=== PATIENT | female | born 1940 | race Caucasian/White ===

== ENCOUNTER → 2016-05-03 | Outpatient (CLI) | payer MEDICARE ==
[~2016-05-03] MED LIST: ALDACTONE 25MG25 MG PO; ALPHA LIPOIC300 MG PO; APRESOLINE 10MG10 MG PO; ARTIFICIAL TEAR15 M6 OP; ARTIFICIAL1 DROP/0.0; ASPIRIN 81MG TA81 MG PO; AZOR 5 MG-20 MG1 TAB PO; BAYER ASPIRIN C81 MG PO; BENICAR HCT 251 TAB PO; BUDESONIDE3 MG PO; CALCIUM WITH D1 CTB PO; CARVEDILOL 25MG25 MG PO; CENTRUM SILVER1 TA2 PO; CHEWABLE ASPIRI81 MG PO; CLARITIN 10MG T10 MG PO; CLARITIN10 MG OR; CLINDAMYCIN300 MG PO; COLACE GENERIC100 MG OR; COREG 6.25MG6.25 MG PO; COUMADIN3 MG PO; COUMADIN6 MG PO; Docusate Sodiu100 MG PO; EDECRIN25 MG OR; EDECRIN25 MG PO; ENDOCORT PO; ENTOCORT EC3 M1 PO; FAMOTIDINE 20MG20 MG PO; FAMOTIDINE20 MG PO; FIBERCON625 MG PO; FOLIC ACID1 MG PO; GABAPENTIN100 M1 PO; HYDRALAZINE HCL25 M1 PO; K-DUR 20MEQ TA20 MEQ PO; KEFLEX 500MG.500 MG PO; LEVAQUIN500 MG PO; LEVOTHYROXIN0.088 MG PO; LEVOTHYROXINE0.1 MG PO; LEVOXYL0.088 MG PO; LISINOPRIL 10MG10 MG NG; LISINOPRIL 20MG20 MG PO; LOMOTIL 0.025 M1 TAB OR; LOPRESSOR 25MG.25 MG PO; LOSARTAN POTAS100 MG PO; MACROBID 100MG100 MG PO; MAG-OX 400MG T400 MG PO; MEDROL 4MG TABLE4 MG PO; METAMUCIL PO; METHYLPREDNISONE4 MG PO; METOLAZONE2.5 MG PO; METOPROLOL25 MG PO; METOPROLOL50 MG PO; NEURONTIN 100100 MG PO; PRAVACHOL20 MG PO; PROAIR HFA0.09 MG/AC IH; PROBIOTIC FORMU1 CA1 PO; SPIRONOLACTONE25 MG PO; SUPER B COMPL PO; TEKTURNA300 MG PO; THE MEDICINE S400 IU PO; TORSEMIDE10 MG PO; URSODIOL250 MG PO; VANCOMYCIN1.5 GM/251 IV; VICODIN 5/500 T1 TAB PO; VITAMIN B121000 MC2 PO; VITAMIN C500 M1 PO; VITAMIN D31000 IU PO; WARFARIN SOD5 MG OR; WARFARIN SOD5 MG PO; WARFARIN SODIU2.5 MG PO; WARFARIN SODIUM3 MG PO; WARFARIN SODIUM6 MG PO; WARFARIN4 MG PO; ZESTRIL40 M1 OR; ZOCOR20 MG PO
== END ==
LOC: ACC 09:30
DX: Z86.718 Personal history of other venous thrombosis and embolism (principal); Z79.01 Long term (current) use of anticoagulants; Z51.81 Encounter for therapeutic drug level monitoring
CPT/HCPCS: G0463

== ENCOUNTER → 2016-05-10 | Outpatient (CLI) | payer MEDICARE | LOC: ACC 10:00 | DX: Z86.718 Personal history of other venous thrombosis and embolism (principal); Z79.01 Long term (current) use of anticoagulants; Z51.81 Encounter for therapeutic drug level monitoring | CPT/HCPCS: G0463 ==

== ENCOUNTER → 2016-06-04 | Outpatient (CLI) | payer MEDICARE | LOC: ACC 09:30 | DX: Z86.718 Personal history of other venous thrombosis and embolism (principal); Z79.01 Long term (current) use of anticoagulants; Z51.81 Encounter for therapeutic drug level monitoring | CPT/HCPCS: G0463 ==

== ENCOUNTER → 2016-06-07 | Outpatient (CLI) | payer MEDICARE | LOC: LAB 11:53 | DX: L97.229 Non-pressure chronic ulcer of left calf with unspecified severity (principal) ==

== ENCOUNTER 2016-07-01 12:00 | Outpatient (CLI) | payer MEDICARE | END 2016-07-01 14:45 | LOC: ACC 12:00 | DX: Z86.718 Personal history of other venous thrombosis and embolism (principal); Z79.01 Long term (current) use of anticoagulants; Z51.81 Encounter for therapeutic drug level monitoring | CPT/HCPCS: G0463 ==

== ENCOUNTER → 2016-10-11 | Outpatient (CLI) | payer MEDICARE ==
[2016-10-11 14:07] LABS: BUN 27 mg/dL (7-18); GFR (ESTIMATED) 61 ML/MIN (59-)
[2016-10-12 07:41] LABS: Microalbumin, Urine 5.4 ug/mL (Not Estab.)
== END ==
LOC: LAB 10:03
PROVIDERS: Internal Medicine
DX: E11.42 Type 2 diabetes mellitus with diabetic polyneuropathy (principal); I87.2 Venous insufficiency (chronic) (peripheral); I10 Essential (primary) hypertension; E78.5 Hyperlipidemia, unspecified; K75.4 Autoimmune hepatitis; E03.9 Hypothyroidism, unspecified

== ENCOUNTER 2016-11-08 10:59 | Outpatient (CLI) | payer MEDICARE | END 2016-11-08 16:26 | LOC: ACC 10:59 | DX: Z86.718 Personal history of other venous thrombosis and embolism (principal); Z79.01 Long term (current) use of anticoagulants; Z51.81 Encounter for therapeutic drug level monitoring | CPT/HCPCS: G0463 ==

== ENCOUNTER → 2016-11-30 | Outpatient (CLI) | payer MEDICARE ==
[2016-11-30 12:28] LABS: BUN 47 mg/dL (7-18)
[2016-11-30 12:43] LABS: GFR (ESTIMATED) 40 ML/MIN (59-)
== END ==
LOC: LAB 11:35
PROVIDERS: Internal Medicine
DX: R07.9 Chest pain, unspecified (principal); M25.512 Pain in left shoulder

== ENCOUNTER 2016-12-06 10:06 | Outpatient (CLI) | payer MEDICARE | END 2016-12-06 14:21 | LOC: ACC 10:06 | DX: Z86.718 Personal history of other venous thrombosis and embolism (principal); Z79.01 Long term (current) use of anticoagulants | CPT/HCPCS: G0463 ==

== ENCOUNTER 2016-12-07 08:46 | Day surgery (SDC) | payer MEDICARE ==
[2016-12-10 15:48] VITALS: BP 117/72
== END 2016-12-07 11:57 | disposition home or self-care (01) ==
LOC: SDC 08:46
PROVIDERS: Ophthalmology
PROC: 085J3ZZ Destruction of Right Lens, Percutaneous Approach (ICD-10-PCS; 2016-12-07)
PROC: 085K3ZZ Destruction of Left Lens, Percutaneous Approach (ICD-10-PCS; principal; 2016-12-07 09:00)
DX: H26.493 Other secondary cataract, bilateral (principal)

== ENCOUNTER 2017-01-17 10:08 | Outpatient (CLI) | payer MEDICARE | END 2017-01-17 15:50 | LOC: ACC 10:08 | DX: I82.499 Acute embolism and thrombosis of other specified deep vein of unspecified lower extremity (principal); Z79.01 Long term (current) use of anticoagulants; Z51.81 Encounter for therapeutic drug level monitoring ==

== ENCOUNTER → 2017-01-18 | Outpatient (CLI) | payer MEDICARE ==
--- NOTE | 2017-01-20 12:33 | RADIOLOGY REPORT PS360 ---
DIG MAMM-SCREEN ALEKS W/CAD CAD Screening COMPARISON: Digital mammograms 11/01/2014 and 12/05/2015 INDICATION: There is no personal or family history of breast cancer. There has been previous biopsy left breast. TECHNIQUE: Standard CC and MLO images were obtained. R2 CAD reviewed. FINDINGS: The breasts are closed primarily of fat with residual fibroglandular elements in the central portions bilaterally. Multiple benign-appearing calcifications are seen in each breast. There is a biopsy clip central portion left breast. There is faint arterial calcification in each breast. There is no suspicious lesion and no suspicious microcalcifications. IMPRESSION: Fibrofatty parenchyma with no suspicious lesion seen recommend yearly follow-up BI-RADS CATEGORY: 2_Benign RECOMMENDED FOLLOWUP: 12M 12 MONTH FOLLOW-UP (A letter has been sent to the patient regarding results of the study.)
== END ==
LOC: RAD 08:56
DX: Z12.31 Encounter for screening mammogram for malignant neoplasm of breast (principal)
CPT/HCPCS: G0202

== ENCOUNTER → 2017-02-25 | Outpatient (CLI) | payer MEDICARE ==
[~2017-02-25] MED LIST changes: +ADVAIR 10028 PUFF/IN IN; +LASIX 20MG. TAB20 MG PO; +MINOCYCLINE 10100 MG PO; +RANITIDINE HCL150 MG PO
[2017-02-25 13:05] LABS: HEMOGLOBIN 11.1 g/dL (12.2-16.2); LYMPH # 0.9 K/mm3 (0.7-4.5); LYMPH % 7.4 % (10-50.0)
[2017-02-25 13:58] LABS: BUN 21 mg/dL (7-18)
[2017-02-25 14:04] LABS: GFR (ESTIMATED) 61 ML/MIN (59-)
[2017-02-25 14:42] LABS: NEUTROPHILS 85 % (42-76)
== END ==
LOC: LAB 11:57
PROVIDERS: Internal Medicine
DX: L03.116 Cellulitis of left lower limb (principal); I10 Essential (primary) hypertension; E11.42 Type 2 diabetes mellitus with diabetic polyneuropathy; I89.0 Lymphedema, not elsewhere classified; I87.2 Venous insufficiency (chronic) (peripheral)

== ENCOUNTER 2017-03-07 11:30 | Outpatient (CLI) | payer MEDICARE ==
[~2017-03-07 11:30] MED LIST changes: -ADVAIR 10028 PUFF/IN IN; -LASIX 20MG. TAB20 MG PO; -MINOCYCLINE 10100 MG PO; -RANITIDINE HCL150 MG PO
[2017-03-08] MEDS ORDERED: MINOCYCLINE 10100 MG PO (11:34)
[2017-03-08] MEDS ORDERED: LASIX 20MG. TAB20 MG PO (11:36)
[2017-03-08] MEDS ORDERED: ADVAIR 10028 PUFF/IN IN (11:36)
[2017-03-08] MEDS ORDERED: RANITIDINE HCL150 MG PO (11:37)
[2017-03-08] MEDS ORDERED: WARFARIN SODIU2.5 MG PO ×2 (14:18)
== END 2017-03-07 16:07 ==
LOC: ACC 11:30
DX: Z86.718 Personal history of other venous thrombosis and embolism (principal); Z79.01 Long term (current) use of anticoagulants; Z51.81 Encounter for therapeutic drug level monitoring
CPT/HCPCS: G0463

== ENCOUNTER 2017-03-08 10:43 | Inpatient (IN) | payer MEDICARE ==
[~2017-03-08] VITALS: Ht 152.4 cm; Wt 78.2 kg
[~2017-03-08 10:43] MED LIST changes: -ADVAIR 10028 PUFF/IN IN; -CEFEPIME1 GM/50 ML IV; -LASIX 20MG. TAB20 MG PO; -MINOCYCLINE 10100 MG PO; -RANITIDINE HCL150 MG PO; -VANCO 1.251.25 GM/15 IV
[2017-03-08 10:47] VITALS: BP 167/95
--- NOTE | 2017-03-08 11:04 | Emergency Room Report ---
History of Present Illness Time Seen by [id number] Presenting Problem in Triage Pt arrived: Presenting Problem: Onset of symptoms date/time:/ or onset unknown for: Treatment Prior to Arrival: [employer] Provided by: Sepsis Risk Assessment: Temp: B/P: MAP: Pulse: Resp: Recent fever? Clinical Suspician of Infection? Mental Status: Sepsis Risk: Have you (or family members/close friends) recently traveled outside the [place]? If Yes, where/when: Have you had exposure to infectious disease within the past month? TB? Other? Specify: Sent directly by PCP Dr. Lomeli with one week history of cellulitis, BLE, left greater than right; didn't improve on Keflex and cultures showed MRSA, so switched to minocycline and receiving outpatient wound care; has had n/v for the last day and a half, not keeping down minocycline, now has deep ulcerations with drainage LLE, wound cultures obtained at PCP office and transferred via wheelchair to ED for further evaluation. Presents HDS but with low grade fever, alert. ALLERGIES Coded Allergies: HMG-CoA Reductase Inhibitors (Intermediate, I-RASH 06/09/15) Sulfa (Sulfonamide Antibiotics) (Intermediate, I-HIVES 06/09/15) sumatriptan (Intermediate, I-RASH 06/09/15) morphine (Mild, HALLUCINATIONS 06/09/15) phenylephrine (06/09/15) pseudoephedrine (06/09/15) venom-honey bee (bee venom (honey bee)) (06/09/15) Penicillins (Intermediate, SWELLING/REDNESS @INJECTION SITE 06/09/15) amlodipine (Intermediate, SWELLING OF FEET/ANKLES 06/09/15) dipyridamole (From Aggrenox) (Mild, NA-NAUSEA/VOMITING; HEADACHE 03/18/15) promethazine (Mild, RESTLESSNESS 03/18/15) Home Medications Active Scripts Spironolactone (Aldactone) 50 MG PO BIDD #180 TAB Ref 1 Prov: 04/02/15 WARFARIN SOD (Warfarin 5MG) 5 MG PO DAILY #30 TAB Ref 5 Prov: 04/02/15 Reported Medications Minocycline Hcl (Minocycline 100MG. Capsule) 100 MG PO DAILY #20 Ascorbic Acid (Vitamin C) 500 MG PO DAILY Cyanocobalamin (Vitamin B12) 1,000 MCG PO DAILY Carvedilol (Carvedilol 25MG) 25 MG PO BID Polyvinyl Alcohol (Artificial Tears) 15 ML OP PRN Calcium Polycarbophil (Fibercon) 625 MG PO BID Losartan Potassium (Losartan 100MG) 100 MG PO DAILY Aspirin (Tanya Chewable Aspirin) 81 MG PO DAILY Levothyroxine Sodium (Levothyroxine 0.088MG) 0.088 MG PO DAILY Budesonide (Budesonide EC) 6 MG PO DAILY CHOLECALCIFEROL (VITAMIN D3) (Vitamin D) 2,000 IUNITS PO BID B.ANI/L.ACI/L.DAYTNO/L.PLAN/L.SYLVAIN (Probiotic Formula Capsule) 1 CAP PO DAILY Furosemide (Lasix 20MG) 20 MG PO BID SALMETEROL 50/FLUTICASONE 100 (Advair 100-50 Diskus) 1 PUFFS IN BID Ranitidine Hcl (Ranitidine 150MG) 150 MG PO BID History Medical History General CAD? No Angina: Yes ME: No Hypertension? Yes Hyperlipidemia? Yes CHF? No DVT? No PE? No COPD? No Asthma? Yes Anemia? No GERD? No Gastric ulcers? No GI Bleed? No Hernia? Yes Thyroid Problems? No Hypothyroidism? No CVA? Yes Seizures? No Diabetes? Yes Insulin Dependent: No Insulin Pump: No Home FSBS? Yes Renal Insuffiency? No End Stage Renal Disease? No UTI? Yes Stones? No BPH? No GB Disease: No Nephritic Syndrome? No Asplenia? No Hepatitis? Yes Sickle Cell Disease? No Arthritis? No Migraines? No Cataracts? Yes Glaucoma? No MRSA? No HIV? No TB? No Anxiety? No Depression? No Cancer? 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 PROCED. 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 MARYAM FILTER PLACED COLOSTOMY R/T RUPTURE COLOSTOMY REVERSAL HERNIA REPAIR [place] teeth extraction Family History Family Hx Diabetes No CAD Yes Hypertension Yes Hyperlipidemia Yes Cancer No TB No Social History Alcohol Alcohol: No Review of Systems All Other Systems Reviewed and Negative Constitutional see HPI Gastrointestinal see HPI, denies abdominal pain, denies constipation, denies diarrhea, nausea, vomiting Musculoskeletal see HPI Skin see HPI Physical Exam Vital Signs Vital Signs Date Time Temp Pulse Resp B/P Pulse O2 O2 Flow FiO2 Ox Delivery Rate 03/08 1256 76 18 156/92 95 03/08 1047 99.4 78 18 167/95 94 General Appearance normal appearance (99.4; 167/95), WD/WN, no apparent distress Eye Exam - bilateral eye normal exam, bilateral eye PERRL, bilateral eye EOMI Neck normal inspection, non-tender, supple, full range of motion Respiratory Status Yes: trachea midline, chest symmetrical, non tender chest. No: respiratory distress, tender on palpation, use of accessory muscles, pain on inspiration, pain on expiration, productive cough, non productive cough. Lung Sounds bilateral: normal breath sounds, lungs clear. Cardiovascular normal exam, regular rate/rhythm, no gallop, no JVD, no murmur, no rub, normal peripheral pulses Gastrointestinal normal bowel sounds, normal exam, non tender, soft, no organomegaly, no pulsatile mass, no guarding, no rebound Extremities bandages removed; deep one cm in diameter ulceration, LLE, bandage from PCP office just now is dripping with serosanguinous fluid; also has cellulitis BLE. Neg Casimiro's, diffuse, nonpitting edema BLE. Feet are spared and are warm to touch, n/v intact, well perfused. Strength 4 Upper Ext (L), 4 Upper Ext (R), 4 Lower Ext (L), 4 Lower Ext (R) Neurologic alert, normal exam, no motor/sensory deficits, oriented x 3 ( diffusely weak, nonfocal exam) Glascow Coma Scale Glascow Coma Scale Response Value EYE response: 4 Spontaneously 4 MOTOR response: 6 OBEYS 6 VERBAL response: 5 Oriented & Converses 5 Total 15 Skin see above: cellulitis plus ulcerations Medical Decision Making LABS/Meds/Orders Pt receiving controlled substance in ED? No Results/Orders Laboratory Tests 03/08/17 1317: Urine Color YELLOW, Urine Appearance CLEAR, Urine pH 7.0, Ur Specific Gibson 1.010, Urine Protein TRACE H, Urine Ketones NEGATIVE, Urine Blood NEGATIVE, Urine Nitrate NEGATIVE, Urine Bilirubin NEGATIVE, Urine Urobilinogen 0.2, Ur Leukocyte Esterase NEGATIVE, Urine RBC NONE, Urine WBC OCC, Ur Squamous Epith Cells 20-50, Urine Bacteria 2+, Urine Glucose NEGATIVE 03/08/17 1117: Lactic Acid 2.6 H 03/08/17 1117: Sodium 144, Potassium 3.6, Chloride 105, Carbon Dioxide 29, BUN 28 H, Creatinine 1.0, Estimated Creat Clear 60, Estimated GFR (MDRD) 54 L, Glucose 178 H, Calcium 9.3, Total Bilirubin 0.7, AST 25, ALT 35, Alkaline Phosphatase 114, Total Protein 6.5, Albumin 3.0 L, Globulin 3.5 H, Albumin/Globulin Ratio 0.9 L, PT 19.7 H, INR 1.81 H, APTT 28.1, WBC 9.6, RBC 3.78 L, Hgb 12.2, Hct 36.9 L, MCV 97.6, RDW 14.3, Plt Count 228, MPV 7.5, Gran % 89.8 H, Gran # 8.6 H, Total Counted 100, Lymphocytes % 4.7 L, Monocytes % 3.5, Eosinophils % 1.5, Basophils % 0.4, Neutrophils 91 H, Lymphocytes (Manual) 3 L, Lymphocytes # 0.5 L, Monocytes (Manual) 5, Monocytes # 0.3, Eosinophils # 0.2, Eosinophils # ( Manual) 1, Basophils # 0.0, RBC/WBC/PLT Morphology NORMAL, Platelet Estimate NORMAL, PUBS MCHC 33.2, ESR 59 H, MCH 32.4 H Current Medication Orders Sig/Mary Start time Last Medication Dose Route Stop Time Status Admin Vancomycin HCl 1,250 MG Q24H 03/09 1300 AC Sodium Chloride 250 ML IV Vancomycin HCl 1,250 MG Q24H 03/08 1300 CAN Sodium Chloride 250 ML IV Vancomycin HCl 1,500 MG ONCE ONE 03/08 1300 AC 03/08 Sodium Chloride 250 ML IV 03/08 1459 1315 Miscellaneous 1 EACH CONSULT PHARMACY 03/08 1230 DC Information * 03/09 0022 Sodium Chloride 10 ML PRN PRN 03/08 1115 AC IV 03/09 1105 Orders Procedure Date/time Status URINALYSIS/COMPLETE 03/08 1246 Complete LACTIC ACID FOLLOW UP 03/08 1153 Active DIFFERENTIAL-WBC 03/08 1117 Complete PARTIAL THROMBOPLASTIN TIME 03/08 1112 Complete PROTHROMBIN TIME 03/08 1112 Complete IV SALINE LOCK 03/08 1106 Active CULTURE, BLOOD 03/08 1106 Active LACTIC ACID 03/08 1106 Complete SED RATE 03/08 1106 Complete C-REACTIVE PROTEIN 03/08 1106 Complete CBC WITH AUTO DIFF 03/08 1106 Complete CHEM 12 PROFILE 03/08 1106 Complete XRAY/CT/US XRAY/CT/US XRAY leg XR interpretation by reviewed by me (report reviewed) Xray Results ulceration L leg per report; no gas noted on either leg xray. Consult MD Physician Consult 1 Time Called 1058 Reason Admission Physician Consult 2 Time Called 1249 Physician Consult 3 Time Called [address] Hodgson, who admits for Dr. Lomeli: go ahead and admit on Vancomycin. Departure Departure Time of Disposition 1321 Disposition Still a Patient Clinical Impression Primary Impression: Cellulitis of leg without foot, left Secondary Impressions: Cellulitis of leg without foot, right Elevated lactic acid level Nausea & vomiting Ulcer of left lower leg Qualifiers: Non-pressure ulcer stage: unspecified non-pressure ulcer stage Qualified Code: L97.929 - Non-pressure chronic ulcer of unspecified part of left lower leg with unspecified severity Condition STABLE Referrals [facility],Ernesto August (Family) ED Critical Care Critical Care No at 1406
--- OUTSIDE RECORDS SUMMARY | 2017-03-08 11:11 | External Medical Summary Rpt | CCD ---
Author Author , MARYAN STEINBERG Address Unknown Phone Care Team Providers Care Program Administrator Name Role Phone Ernesto Lomeli MD, Unavailable Unavailable Ernesto Mancini MD, Unavailable Unavailable Karo Mancini MD Purpose Continuity of Care Document - 07-05-2012 through 2016 Problems Code Diagnosis DOS Provider Status 244.0 244.0 04-09-2013 [place] POSTSURGICA [facility] HYPOTHYROID 244.9 244.9 04-09-2013 [place] HYPOTHYROID [facility] IS NOS Hospital 272.4 272.4 04-09-2013 [place] HYPERLIPIDE [facility] NEC/NOS Hospital 401.9 401.9 04-09-2013 [place] HYPERTENSIO [facility] N [facility] Hospital 424.0 424.0 04-09-2013 [place] 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 493.90 493.90 04-09-2013 [place] ASTHMA, [facility] UNSPECIFIED Hospital 564.1 564.1 04-09-2013 [place] IRRITABLE [facility]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 715.90 715.90 04-09-2013 [place] OSTEOARTHRO [facility] S [facility] NOS-UNSPEC 784.7 784.7 04-09-2013 [place] EPISTAXIS [facility] V12.51 V12.51 04-09-2013 [place] HX-VENOUS [facility] THROMBOSIS& Hospital EMBOLISM V58.61 V58.61 04-09-2013 [place] ANTICOAGULA [facility] NTS,LT,[facility] ENT USE V58.69 V58.69 OTH 04-09-2013 [place] MED,LT,[facility] ENT USE Hospital 356.9 356.9 IDIO 07-07-2012 [place] PERIPH [facility] NEURPTHY [facility] NOS 435.9 435.9 TRANS 07-07-2012 [place] CEREB [facility] ISCHEMIA Hospital NOS 496 496 [facility] 07-07-2012 [place] AIRWAY [facility] OBSTRUCT [facility] NEC 573.3 573.3 07-07-2012 [place] HEPATITIS [facility] NOS Hospital 625.6 625.6 FEM 07-07-2012 [place] STRESS [facility] INCONTINENC [facility] E 729.81 729.81 07-07-2012 [place] SWELLING OF [facility] 599.0 599.71 786.05 V58.81 Allergies, Adverse Reactions, Alerts Type Allergy to substance Drug Allergy Adverse Reaction to Substance Substance Reaction Severity STATINS I-RASH Unknown Penicillin Unknown Unknown SULFA (sulfonamide) I-HIVES Intermediate Morphine NA-HALLUCINATIONS Intermediate Pseudoephedrine Unknown Mild Promethazine Unknown Intermediate Penicillin G Unknown Unknown Phenylephrine Unknown Unknown Dipyridamole Unknown Mild Amlodipine Unknown Mild Clarithromycin Unknown Unknown Sumatriptan I-RASH Intermediate Bee Venom Unknown Unknown Clinical Alert Notifications Alert Asthma: no influenza vaccine in the last 365 days Medications Na ND Rx Da Fi Fi Am Da Di Ph RX Ph St me C No te ll ll ou ys ag ar # ys at rm s nt no ma ic us Or Da si cy ia de te s n re d AV 00 12 0 No AP 08 -2 RO 72 3- Lo 77 20 ng 30 33 13 er 0 1 MG Ac ti TA ve BL ET HY [address] 07 -2 AL 90 3- Lo AZ 07 20 ng IN 52 13 er E 0 25 Ac ti MG ve TA BL ET Po 00 12 0 No ta 24 -2 ss 50 3- Lo iu 05 20 ng m 80 13 er Ch 1 lo Ac ri ti de ve 20 ME Q Ta bl e Po 00 12 0 No ta 24 -2 ss 50 3- Lo iu 05 20 ng m 80 13 er Ch 1 lo Ac ri ti de ve 20 ME Q Ta bl e SP 51 12 0 No IR 07 -2 ON 90 3- Lo OL 10 20 ng AC 32 13 er TO 0 NE Ac ti 25 ve MG TA BL ET SP 51 12 1 No IR 07 -2 ON 90 2- Lo OL 10 20 ng AC 32 13 er TO 0 NE Ac ti 25 ve MG TA BL ET Po 00 12 1 No ta 24 -2 ss 50 2- Lo iu 05 20 ng m 80 13 er Ch 1 lo Ac ri ti de ve 20 ME Q Ta bl e 00 12 0 No TA 40 -2 CA 99 2- Lo N 15 20 ng K- 80 13 er 1 1 10 Ac ti MG ve /M L AM PU L Po 00 12 1 No ta 24 -2 ss 50 2- Lo iu 05 20 ng m 80 13 er Ch 1 lo Ac ri ti de ve 20 ME Q Ta bl e ME 59 12 1 No TH 74 -2 YL 60 2- Lo HI 00 20 ng ED 10 13 er NI 6 SO Ac LO ti NE ve 4 MG TA BL ET HY [address] 07 -2 AL 90 2- Lo AZ 07 20 ng IN 52 13 er E 0 25 Ac ti MG ve TA BL ET CE 00 12 2 No FT 40 -2 RI 97 1- Lo AX 33 20 ng ON 30 13 er E 4 1 Ac GM ti ve AL SO 00 12 2 No DI 40 -2 UM 97 1- Lo 10 20 ng CH 16 13 er LO 6 RI Ac DE ti ve 0. 9% SO LN AV 00 12 1 No AP 08 -2 RO 72 1- Lo 77 20 ng 15 23 13 er 0 1 MG Ac ti TA ve BL ET SY 00 12 2 No NT 07 -2 HR 46 1- Lo OI 59 20 ng D 49 13 er 88 0 Ac MC ti G ve TA BL ET LO 51 12 2 No RA 07 -2 TA 90 1- Lo DI 24 20 ng NE 62 13 er 0 10 Ac ti MG ve TA BL ET FA 51 12 2 No MO 07 -2 TI 90 1- Lo DI 96 20 ng NE 62 13 er 0 20 Ac ti MG ve TA BL ET BA 45 12 2 No CI 80 -2 TR 20 1- Lo AC 06 20 ng IN 07 13 er 0 50 Ac 0 ti UN ve IT /G M OI NT MN T PA 12 2 No TI -2 EN 1- Lo T' 20 ng S 13 er OW N Ac HO ti ME ve ME DS ME 59 12 1 No TH 74 -2 YL 60 1- Lo HI 00 20 ng ED 10 13 er NI 6 SO Ac LO ti NE ve 4 MG TA BL ET HY [address] 07 -2 AL 90 1- Lo AZ 07 20 ng IN 52 13 er E 0 25 Ac ti MG ve TA BL ET SO 00 12 3 No DI 40 -2 UM 97 0- Lo 98 20 ng CH 30 13 er LO 9 RI Ac DE ti ve 0. 9% SO ROSS TI ON CO 00 12 0 No CA 52 -2 IN 71 0- Lo E 72 20 ng 4% 87 13 er 4 SO Ac ROSS ti TI ve ON NA 00 12 0 No SA 90 -2 L 45 0- Lo DE 71 20 ng CO 13 13 er NG 5 ES Ac TA ti NT ve 0. 05 % SP RA Y CL 00 12 0 No ON 90 -2 ID 45 0- Lo IN 65 20 ng E 66 13 er HC 1 L Ac 0. ti 1 ve MG TA BL ET CA 51 12 3 No RV 07 -2 ED 90 0- Lo IL 93 20 ng OL 22 13 er 0 25 Ac ti MG ve TA BL ET ON 00 03 0 No DA 64 -2 NS 16 2- Lo ET 08 20 ng RO 02 13 er N 5 HC Ac L ti 4 ve MG /2 ML AL RA 00 03 0 No D- 27 -2 IS 01 2- Lo OV 31 20 ng UE 63 13 er -3 5A 70 Ac ; ti 10 ve 0M L RA 63 03 0 No D- 80 -2 SA 70 2- Lo LI 10 20 ng NE 07 13 er 5A FL Ac US ti H ve 10 ML SY RI NG E SO 00 03 0 No DI 40 -2 UM 94 2- Lo 88 20 ng CH 82 13 er LO 0 RI Ac DE ti ve 0. 9% AL Hy [address] 18 -2 al 20 1- Lo az 90 20 ng in 58 13 er e 9 10 Ac MG ti ve Ta bl et Lo 51 03 1 No ra 07 -2 ta 90 1- Lo di 53 20 ng ne 82 13 er 0 10 Ac MG ti ve Ta bl et 63 03 1 No PI 73 -2 RI 90 1- Lo N 43 20 ng 81 40 13 er 1 MG Ac ti CH ve EW AB LE TA BL ET Li 00 03 1 No si 17 -2 no 23 1- Lo pr 76 20 ng il 01 13 er 0 20 Ac MG ti ve Ta bl et PA 03 1 No TI -2 EN 1- Lo T' 20 ng S 13 er OW N Ac HO ti ME ve ME DS CO 00 03 1 No UM 05 -2 AD 60 1- Lo IN 18 20 ng 3 87 13 er 5 MG Ac ti TA ve BL ET LO 00 03 2 No VE 07 -2 NO 50 0- Lo X 62 20 ng 40 04 13 er 1 MG Ac /0 ti .4 ve ML SY RI NG E CO 00 03 0 No UM 05 -2 AD 60 0- Lo IN 17 20 ng 5 27 13 er 0 MG Ac ti TA ve BL ET As 51 03 2 No co 07 -2 rb 90 0- Lo ic 00 20 ng 42 13 er Ac 0 id Ac ti 50 ve 0M G Ta bl et SY 00 03 2 No NT 07 -2 HR 46 0- Lo OI 59 20 ng D 49 13 er 88 0 Ac MC ti G ve TA BL ET VE 00 03 2 No NT 17 -2 OL 30 0- Lo IN 68 20 ng 22 13 er HF 4 A Ac 90 ti ve MC G IN PALACIO LE R Li 00 03 0 No si 17 -2 no 23 0- Lo pr 75 20 ng il 91 13 er 0 10 Ac MG ti ve Ta bl et FI 00 03 2 No BE 00 -2 RC 52 0- Lo ON 50 20 ng 00 13 er 62 2 5 Ac MG ti ve CA PL ET CA 51 03 2 No RV 07 -2 ED 90 0- Lo IL 93 20 ng OL 22 13 er 0 25 Ac ti MG ve TA BL ET FA 51 03 2 No MO 07 -2 TI 90 0- Lo DI 96 20 ng NE 62 13 er 0 20 Ac ti MG ve TA BL ET HY [address] 07 -2 AL 90 0- Lo AZ 07 20 ng IN 52 13 er E 0 25 Ac ti MG ve TA BL ET HI 51 03 2 No AV 07 -2 90 0- Lo TA 45 20 ng TI 82 13 er N 0 SO Ac DI ti UM ve 20 MG TA B Vital Signs 04-09-2013 19:22 Name Value Interpretat Reference Comment ion Range Body 97.8 [degF] Temperature BP 86 mm[Hg] Diastolic BP Systolic 159 mm[Hg] Heart 67 /min Rate/Pulse Respiratory 20 /min Rate 04-09-2013 16:00 Name Value Interpretat Reference Comment ion Range O2% 95 % 04-07-2013 00:30 Name Value Interpretat Reference Comment ion Range Height 152.40 cm Weight 76.318 kg Measured 04-06-2013 19:37 Name Value Interpretat Reference Comment ion Range Body 97.7 [degF] Temperature BP 111 mm[Hg] Diastolic BP Systolic 235 mm[Hg] Heart 75 /min Rate/Pulse O2% 98 % Respiratory 16 /min Rate Weight 0 [oz_av] Measured 02-04-2013 15:55 Name Value Interpretat Reference Comment ion Range BP 81 mm[Hg] Diastolic BP Systolic 187 mm[Hg] Heart 56 /min Rate/Pulse O2% 96 % Respiratory 18 /min Rate 02-04-2013 15:54 Name Value Interpretat Reference Comment ion Range BP 81 mm[Hg] Diastolic BP Systolic 187 mm[Hg] Heart 56 /min Rate/Pulse O2% 96 % Respiratory 18 /min Rate 07-07-2012 18:45 Name Value Interpretat Reference Comment ion Range Body 98.7 [degF] Temperature BP 73 mm[Hg] Diastolic BP Systolic 113 mm[Hg] Heart 74 /min Rate/Pulse Respiratory 16 /min Rate 07-07-2012 16:00 Name Value Interpretat Reference Comment ion Range O2% 97 % 07-05-2012 18:39 Name Value Interpretat Reference Comment ion Range Height 152.40 cm Weight 69.145 kg Measured 07-05-2012 13:25 Name Value Interpretat Reference Comment ion Range Body 98.3 [degF] Temperature BP 59 mm[Hg] Diastolic BP Systolic 97 mm[Hg] Heart 71 /min Rate/Pulse O2% 98 % Respiratory 20 /min Rate Weight 0 [oz_av] Measured Results Labs Lab Lab Date Result Refere Interp Status Commen Order Detail nces retati t Range on Ammonia measurement (02-28-2017 10:37) Ammonia 02-28-2 = 12 19-54 complet 017 umoL/L ed measure 10:37 ment Comprehensive metabolic panel (02-28-2017 10:37) Protein = 5.6 6.4-8.2 complet total 017 gm/dL ed ser/scotty 10:37 s ALT = 45 12-78 complet (SGPT) 017 U/L ed ser/scotty 10:37 s Serum = 21 15-37 complet or 017 U/L ed plasma 10:37 asparta te aminotr ansfera Serum = 141 136-145 complet sodium 017 mmoL/L ed measure 10:37 ment Serum 2 = 4.7 3.5-5.1 complet potassi 017 mmoL/L ed um 10:37 measure ment Serum = 147 74-106 complet or 017 mg/dL ed plasma 10:37 glucose measure ment (mas Serum = 2.8 1.3-3.2 complet globuli 017 gm/dL ed n 10:37 measure ment (mass/v olume) Estimat = 48 59- complet ed 017 ML/MIN ed glomeru 10:37 lar filtrat ion rate (GF Comment: REFERENCE RANGE: >60 ML/MIN/1.73 SQUARE METERS Comment: If this patient is -Nepalese, then multiply the Comment: result by 1.210. Serum 02-28-2 = 1.1 0.55-1. complet or 017 mg/dL 02 ed plasma 10:37 creatin ine measure ment ( Carbon = 27 21.0-32 complet dioxide 017 mmoL/L .0 ed 10:37 measure ment Serum = 102 98-107 complet or 017 mmoL/L ed plasma 10:37 chlorid e measure ment (mo Serum = 9.0 8.5-10. complet or 017 mg/dL 1 ed plasma 10:37 calcium measure ment (mas Serum = 29 7-18 complet or 017 mg/dL ed plasma 10:37 urea nitroge n measure men Serum = 0.5 0.2-1.0 complet or 017 mg/dL ed plasma 10:37 total bilirub in measure m Serum = 118 46-116 complet or 017 U/L ed plasma 10:37 alkalin e phospha tase laura Serum = 2.8 3.4-5.0 complet or 017 gm/dL ed plasma 10:37 albumin measure ment (mas Serum = 1.0 1.1-1.8 complet or 017 ed plasma 10:37 albumin /globul in mass ra Whole blood INR measurement (02-28-2017 10:37) Prothro = 22.1 9.4-11. complet mbin 017 SECONDS 8 ed time 10:37 (PT) in platele t poor p Whole = 2.03 0.9-1.1 complet blood 017 ed INR 10:37 measure ment Comment: INDICATION INR RANGE Comment: Comment: THERAPY FOR DVT, PE, ATRIAL FIB; 2.0 - 3.0 Comment: PROPHYLAXIS FOR VTE Comment: Comment: THERAPY FOR MECHANICAL HEART 2.5 - 3.5 Comment: VALVE; PREVENTION OF SYSTEMIC Comment: EMBOLISM SECONDARY TO AMI CBC w auto diff (02-28-2017 10:37) Automat = 7.9 7.4-10. complet ed 017 fl 4 ed blood 10:37 platele t mean volume laura Kendall % = 6.2 % 1.7-9.3 complet 017 ed 10:37 Absolut = 0.5 0.1-1.0 complet e 017 K/mm3 ed monocyt 10:37 e count Automat = 99.3 82.2-97 complet ed 017 fl .8 ed erythro 10:37 cyte mean corpusc ular v Automat = 33.1 31.8-35 complet ed 017 g/dl .4 ed erythro 10:37 cyte mean corpusc ular h Mean = 32.9 27-31.2 complet corpusc 017 pg ed ular 10:37 hemoglo bin (MCH) determ Lymphoc = 12.0 10-50.0 complet yte 017 % ed count, 10:37 blood, automat ed Absolut = 1.0 0.7-4.5 complet e 017 K/mm3 ed lymphoc 10:37 yte count Blood = 11.4 12.2-16 complet hemoglo 017 g/dL .2 ed bin 10:37 measure ment (mass/v olum Blood = 34.5 37.0-47 complet hematoc 017 % .0 ed rit 10:37 (volume fractio n) Granulo = 80.5 37.0-80 complet cyte 017 % .0 ed percent 10:37 age Blood = 6.3 1.8-7.8 complet granulo 017 K/mm3 ed cytes 10:37 automat ed count (numb Automat = 1.1 % 0.1-12. complet ed 017 0 ed blood 10:37 eosinop hils/10 0 leukocy t Automat = 0.1 0.0-0.4 complet ed 017 K/mm3 ed blood 10:37 eosinop hil count Baso % = 0.2 % 0.1-2.0 complet 017 ed 10:37 Automat = 0.0 0-0.2 complet ed 017 K/MM3 ed blood 10:37 basophi l count (count/ vo Blood = 7.9 4.8-10. complet leukocy 017 K/MM3 8 ed bala 10:37 count (number /volume ) Automat = 13.9 11.5-17 complet ed 017 % .5 ed erythro 10:37 cyte distrib ution width Red = 3.47 4.2-5.4 complet blood 017 M/mm3 ed cell 10:37 count Blood = 223 142-424 complet platele 017 K/mm3 ed t count 10:37 Gram negative automated antibiotic susceptibility test (02-28-2017 08:16) Vancomy 11-13-2 <= 0.5 complet lexie 017 ug/ml ed suscept 08:16 ibility test by minimum inhibit ory concent ration Tetracy -13-2 <= 1 complet samaniego 017 ug/ml ed suscept 08:16 ibility test by minimum inhibit ory concent ration Trimeth 13-2 <= 10 complet oprim/s 017 ug/ml ed ulfamet 08:16 hoxazol e suscept ibility test by minimum inhibit ory concent ration Rifampi -13-2 <= 0.5 complet n 017 ug/ml ed suscept 08:16 ibility test by minimum inhibit ory concent ration Penicil -13-2 >= 0.5 complet maxime G 017 ug/ml ed suscept 08:16 ibility test by minimum inhibit ory concent ration Oxacill -13-2 >= 4 complet in 017 ug/ml ed suscept 08:16 ibility test by minimum inhibit ory concent ration Levoflo -13-2 <= 0.12 complet xacin 017 ug/ml ed suscept 08:16 ibility test by minimum inhibit ory concent ration Gentami 11-13-2 <= 0.5 complet lexie 017 ug/ml ed suscept 08:16 ibility test by minimum inhibit ory concent ration Erythro 11-13-2 = 0.5 complet mycin 017 ug/ml ed suscept 08:16 ibility test by minimum inhibit ory concent ration Clindam 11-13-2 <= 0.25 complet ycin 017 ug/ml ed suscept 08:16 ibility test by minimum inhibit ory concent ration Basic metabolic panel (02-25-2017 11:58) Serum 02-25-2 = 138 136-145 complet sodium 017 mmoL/L ed measure 11:58 ment Serum 02-25-2 = 4.7 3.5-5.1 complet potassi 017 mmoL/L ed um 11:58 measure ment Serum 02-25-2 = 165 74-106 complet or 017 mg/dL ed plasma 11:58 glucose measure ment (mas Estimat 2 = 61 59- complet ed 017 ML/MIN ed glomeru 11:58 lar filtrat ion rate (GF Comment: REFERENCE RANGE: >60 ML/MIN/1.73 SQUARE METERS Comment: If this patient is -Nepalese, then multiply the Comment: result by 1.210. Serum 2 = 0.9 0.55-1. complet or 017 mg/dL 02 ed plasma 11:58 creatin ine measure ment ( Carbon = 30 21.0-32 complet dioxide 017 mmoL/L .0 ed 11:58 measure ment Serum = 103 98-107 complet or 017 mmoL/L ed plasma 11:58 chlorid e measure ment (mo Serum = 9.0 8.5-10. complet or 017 mg/dL 1 ed plasma 11:58 calcium measure ment (mas Serum 2 = 21 7-18 complet or 017 mg/dL ed plasma 11:58 urea nitroge n measure men Whole blood INR measurement (02-25-2017 11:58) Prothro = 15.9 9.4-11. complet mbin 017 SECONDS 8 ed time 11:58 (PT) in platele t poor p Whole = 1.47 0.9-1.1 complet blood 017 ed INR 11:58 measure ment Comment: INDICATION INR RANGE Comment: Comment: THERAPY FOR DVT, PE, ATRIAL FIB; 2.0 - 3.0 Comment: PROPHYLAXIS FOR VTE Comment: Comment: THERAPY FOR MECHANICAL HEART 2.5 - 3.5 Comment: VALVE; PREVENTION OF SYSTEMIC Comment: EMBOLISM SECONDARY TO AMI Differential panel, method unspecified - (02-25-2017 11:58) Blood 02-25-2 = 100 complet total 017 #CELLS ed cell 11:58 count Neutrop = 85 % 42-76 complet hil 017 ed count 11:58 Platele NORMAL complet t 017 NORMAL ed estimat 11:58 L e Monocyt = 2 % 2-9 complet e % 017 ed 11:58 LYMPH 02-25- 4 % 10-50 complet 017 ed 11:58 Automat = 9 % 0-8 complet ed 017 ed blood 11:58 band neutrop hil percent a CBC w auto diff (02-25-2017 11:58) Blood = 12.1 4.8-10. complet leukocy 017 K/MM3 8 ed bala 11:58 count (number /volume ) Automat = 13.9 11.5-17 complet ed 017 % .5 ed erythro 11:58 cyte distrib ution width Red = 3.44 4.2-5.4 complet blood 017 M/mm3 ed cell 11:58 count Blood = 185 142-424 complet platele 017 K/mm3 ed t count 11:58 Automat = 8.3 7.4-10. complet ed 017 fl 4 ed blood 11:58 platele t mean volume laura Kendall % = 3.7 % 1.7-9.3 complet 017 ed 11:58 Absolut = 0.4 0.1-1.0 complet e 017 K/mm3 ed monocyt 11:58 e count Automat = 98.8 82.2-97 complet ed 017 fl .8 ed erythro 11:58 cyte mean corpusc ular v Automat = 32.7 31.8-35 complet ed 017 g/dl .4 ed erythro 11:58 cyte mean corpusc ular h Mean = 32.3 27-31.2 complet corpusc 017 pg ed ular 11:58 hemoglo bin (MCH) determ Lymphoc = 7.4 % 10-50.0 complet yte 017 ed count, 11:58 blood, automat ed Absolut = 0.9 0.7-4.5 complet e 017 K/mm3 ed lymphoc 11:58 yte count Blood = 11.1 12.2-16 complet hemoglo 017 g/dL .2 ed bin 11:58 measure ment (mass/v olum Blood = 34.0 37.0-47 complet hematoc 017 % .0 ed rit 11:58 (volume fractio n) Granulo = 88.7 37.0-80 complet cyte 017 % .0 ed percent 11:58 age Blood = 10.8 1.8-7.8 complet granulo 017 K/mm3 ed cytes 11:58 automat ed count (numb Automat = 0.2 % 0.1-12. complet ed 017 0 ed blood 11:58 eosinop hils/10 0 leukocy t Automat = 0.0 0.0-0.4 complet ed 017 K/mm3 ed blood 11:58 eosinop hil count Baso % = 0.1 % 0.1-2.0 complet 017 ed 11:58 Automat = 0.0 0-0.2 complet ed 017 K/MM3 ed blood 11:58 basophi l count (count/ vo Differential panel, method unspecified - (02-25-2017 11:58) LYMPH 4 % 10% - Low complet 017 50% ed 11:58 Platele NORMAL complet ts 017 ed [Presen 11:58 ce] in Blood by Light microsc opy Bacterial body fluid culture (02-25-2017) Bacteri [id number] complet al body 017 ed fluid Staphyl culture ococcus aureus SCT SAUR STAPHYL OCOCCUS AUREUS L Bacteri <10 complet al body 017 WBCS ed fluid culture Bacteri <10 complet al body 017 EPI'S ed fluid culture Bacteri MODERAT complet al body 017 E GRAM ed fluid POSITIV culture E COCCI Bacteri GRAM complet al body 017 STAIN- ed fluid culture Whole blood INR measurement (02-14-2017 10:20) Whole = 2.4 0.9-1.1 complet blood 017 ed INR 10:20 measure ment Comment: Comment: Results sent to: Ernesto Lomeli MD 02/14/17 1819 Comment: Titus Forrester Pharmacist recommendation for Warfarin Comment: therapy is: PATIENT INR 2.4 TODAY VIA FINGERSTICK. Comment: RECOMMENDED PATIENT CONTINUE WITH CURRENT DOSE OF WARFARIN Comment: 2.5 MG ON MON/FRI; 3.75 MG ON TUE/TUE/TUE/JEMAL/SAT. WILL Comment: FOLLOW UP ON 03/25. Comment: Comment: FOR DETAILED INFORMATION-PLEASE REVIEW PROGRESS NOTE Comment: IN THE ASSESSMENTS AND ANTICOAGULATION CLINIC SECTION Comment: ANTICOAGULATION CLINIC IN PCI/CLINICAL REVIEW Comment: INDICATION INR RANGE Comment: Comment: THERAPY FOR DVT, PE, ATRIAL FIB; 2.0 - 3.0 Comment: PROPHYLAXIS FOR VTE Comment: Comment: THERAPY FOR MECHANICAL HEART 2.5 - 3.5 Comment: VALVE; PREVENTION OF SYSTEMIC Comment: EMBOLISM SECONDARY TO AMI Hemoglobin A1c in Blood (12-31-2016 12:04) Hemoglo 6.6 % 0.0% Normal complet bin A1c 017 - ed in 12:04 7.0% Blood Hemoglobin A1c in Blood (10-11-2016 10:03) Hemoglo 6.5 % 0.0% Normal complet bin A1c 017 - ed in 10:03 7.0% Blood PROTIME/INR (04-09-2013 06:10) PROTHRO 11.0 9.9-11. complet MBIN 013 SECONDS 6 ed TIME 06:10 INR Bld 1.03 0.9-1.1 complet 013 UNK ed 06:10 Calcium SerPl-mCnc (04-07-2013 11:10) Calcium 7.9 8.5-10. complet 013 mg/dL 1 ed SerPl-m 11:10 Cnc Magnesium SerPl-mCnc (04-07-2013 11:10) Magnesi 2.0 1.4-2.2 complet um 013 mg/dL ed SerPl-m 11:10 Cnc Albumin SerPl-mCnc (04-07-2013 11:10) Albumin 2.9 3.4-5.0 complet 013 gm/dL ed SerPl-m 11:10 Cnc BASIC METABOLIC PANEL (04-07-2013 06:15) Glucose 12-21-2 98 74-106 complet 013 mg/dL ed Bld-mCn 06:15 c BUN 15 7-18 complet Bld-mCn 013 mg/dL ed c 06:15 Creat 0.6 0.6-1.0 complet SerPl-m 013 mg/dL ed Cnc 06:15 Creat 99 50-200 complet Cl 013 ML/MIN ed predict 06:15 ed SerPl C-G-vRa te GFR/BSA 98 59- complet .pred 013 ML/MIN ed SerPl 06:15 Schwart z-vRate Sodium 140 136-145 complet SerPl-s 013 mmoL/L ed Cnc 06:15 Potassi 3.2 3.5-5.1 complet um 013 mmoL/L ed SerPl-s 06:15 Cnc Chlorid 105 98-107 complet e 013 mmoL/L ed SerPl-s 06:15 Cnc CO2 29 21.0-32 complet SerPl-s 013 mmoL/L .0 ed Cnc 06:15 Calcium 7.8 8.5-10. complet 013 mg/dL 1 ed SerPl-m 06:15 Cnc CBC with AUTO DIFF (04-07-2013 06:15) WBC # 04-07-2 6.5 4.8-10. complet Bld 013 K/MM3 8 ed Auto 06:15 RBC # 04-07- 3.86 4.2-5.4 complet Bld 013 M/mm3 ed Auto 06:15 Hgb 12.4 12.2-16 complet Bld-mCn 013 g/dL .2 ed c 06:15 Hct Fr 36.3 % 37.0-47 complet Bld 013 .0 ed 06:15 MCV RBC 93.9 fl 82.2-97 complet 013 .8 ed 06:15 MCH RBC 32.0 pg 27-31.2 complet Qn 013 ed Auto 06:15 MEAN 34.1 31.8-35 complet CORPUSC 013 g/dl .4 ed ULAR 06:15 HGB CONC RDW RBC 15.1 % 11.5-17 complet Auto 013 .5 ed 06:15 Platele -21-2 191 142-424 complet t Bld 013 K/mm3 ed Ql 06:15 Manual MEAN 21-2 7.3 fl 7.4-10. complet PLATELE 013 4 ed T 06:15 VOLUME Granulo 21-2 57.4 % 37.0-80 complet cytes 013 .0 ed Fr Bld 06:15 Auto LYMPH % -21-2 34.4 % 10-50.0 complet 013 ed 06:15 Monocyt -21-2 5.8 % 1.7-9.3 complet es Fr 013 ed Bld 06:15 Auto Eosinop 21-2 2.1 % 0.1-12. complet hil Fr 013 0 ed Bld 06:15 Auto Basophi 21-2 0.2 % 0.1-2.0 complet ls Fr 013 ed Bld 06:15 Auto Granulo -21-2 3.7 1.8-7.8 complet cytes # 013 K/mm3 ed Bld 06:15 Auto Lymphoc 04-07-2 2.2 0.7-4.5 complet ytes Fr 013 K/mm3 ed Bld 06:15 Auto Monocyt 21-2 0.4 0.1-1.0 complet es # 013 K/mm3 ed Bld 06:15 Auto Eosinop 21-2 0.1 0.0-0.4 complet hil # 013 K/mm3 ed Bld 06:15 Auto Basophi 21-2 0.0 0-0.2 complet ls # 013 K/MM3 ed Bld 06:15 Auto BASIC METABOLIC PANEL (04-06-2013 23:30) Glucose 111 74-106 complet 013 mg/dL ed Bld-mCn 23:30 c BUN 18 7-18 complet Bld-mCn 013 mg/dL ed c 23:30 Creat 0.7 0.6-1.0 complet SerPl-m 013 mg/dL ed Cnc 23:30 GFR/BSA 82 59- complet .pred 013 ML/MIN ed SerPl 23:30 Schwart z-vRate Sodium 140 136-145 complet SerPl-s 013 mmoL/L ed Cnc 23:30 Potassi 12-20-2 4.1 3.5-5.1 complet um 013 mmoL/L ed SerPl-s 23:30 Cnc Chlorid 20-2 105 98-107 complet e 013 mmoL/L ed SerPl-s 23:30 Cnc CO2 20-2 29 21.0-32 complet SerPl-s 013 mmoL/L .0 ed Cnc 23:30 Calcium 12-20-2 8.2 8.5-10. complet 013 mg/dL 1 ed SerPl-m 23:30 Cnc CBC with AUTO DIFF (04-06-2013 23:30) WBC # 12-20-2 7.7 4.8-10. complet Bld 013 K/MM3 8 ed Auto 23:30 RBC # 12-20-2 4.34 4.2-5.4 complet Bld 013 M/mm3 ed Auto 23:30 Hgb -20-2 13.5 12.2-16 complet Bld-mCn 013 g/dL .2 ed c 23:30 Hct Fr 04-06-2 40.1 % 37.0-47 complet Bld 013 .0 ed 23:30 MCV RBC 20-2 92.6 fl 82.2-97 complet 013 .8 ed 23:30 MCH RBC 20-2 31.1 pg 27-31.2 complet Qn 013 ed Auto 23:30 MEAN 12-20-2 33.6 31.8-35 complet CORPUSC 013 g/dl .4 ed ULAR 23:30 HGB CONC RDW RBC 20-2 14.9 % 11.5-17 complet Auto 013 .5 ed 23:30 Platele 12-20-2 226 142-424 complet t Bld 013 K/mm3 ed Ql 23:30 Manual MEAN 12-20-2 7.2 fl 7.4-10. complet PLATELE 013 4 ed T 23:30 VOLUME Granulo -20-2 60.1 % 37.0-80 complet cytes 013 .0 ed Fr Bld 23:30 Auto LYMPH % 12-20-2 30.7 % 10-50.0 complet 013 ed 23:30 Monocyt 12-20-2 7.0 % 1.7-9.3 complet es Fr 013 ed Bld 23:30 Auto Eosinop -20-2 1.9 % 0.1-12. complet hil Fr 013 0 ed Bld 23:30 Auto Basophi 12-20-2 0.2 % 0.1-2.0 complet ls Fr 013 ed Bld 23:30 Auto Granulo 12-20-2 4.6 1.8-7.8 complet cytes # 013 K/mm3 ed Bld 23:30 Auto Lymphoc 12-20-2 2.4 0.7-4.5 complet ytes Fr 013 K/mm3 ed Bld 23:30 Auto Monocyt 12-20-2 0.5 0.1-1.0 complet es # 013 K/mm3 ed Bld 23:30 Auto Eosinop 12-20-2 0.2 0.0-0.4 complet hil # 013 K/mm3 ed Bld 23:30 Auto Basophi 12-20-2 0.0 0-0.2 complet ls # 013 K/MM3 ed Bld 23:30 Auto PROTIME/INR (04-06-2013 20:50) PROTHRO -20-2 19.9 9.9-11. complet MBIN 013 SECONDS 6 ed TIME 20:50 INR Bld 20-2 1.85 0.9-1.1 complet 013 UNK ed 20:50 INR BldC (04-06-2013 11:00) INR -20-2 2.0 UNK 0.9-1.1 complet BldC 013 ed 11:00 PROTIME/INR (02-04-2013 15:00) PROTHRO -20-2 19.7 9.9-11. complet MBIN 013 SECONDS 6 ed TIME 15:00 INR Bld 20-2 1.83 0.9-1.1 complet 013 UNK ed 15:00 URINALYSIS/COMPLETE (02-04-2013 14:00) URINE 20-2 DARK YELLOW complet COLOR 013 YELLOW ed 14:00 URINE 02-04-2 Cloudy CLEAR complet APPEARA 013 ed NCE 14:00 URINE 02-04-2 NEGATIV NEG complet GLUCOSE 013 E ed - 14:00 DIPSTIC K URINE 02-04-2 NEGATIV NEG complet BILIRUB 013 E ed IN - 14:00 DIPSTIC K URINE 20-2 TRACE NEG complet KETONE 013 mg/dL ed 14:00 URINE 10-20-2 Greater 1.005-1 complet SPECIFI 013 than .030 ed C 14:00 or GRAVITY equal to 1.030 URINE 3+ NEG complet BLOOD 013 ed 14:00 URINE 6.0 UNK 5.0-8.5 complet PH 013 ed 14:00 URINE 1+ NEG complet PROTEIN 013 mg/dL ed - 14:00 DIPSTIC K URINE 0.2 NEG complet UROBILI 013 E.U./dL ed NOGEN - 14:00 DIPSTIC K URINE NEGATIV NEG complet NITRATE 013 E ed - 14:00 DIPSTIC K URINE 2+ NEG complet LEUK 013 ed ESTERAS 14:00 E URINE TNTC 0 complet RBC 013 rbc/hpf ed 14:00 URINE 50-100 O complet WBC 013 wbc/hpf ed 14:00 URINE 2+ O complet BACTERI 013 ed A 14:00 BASIC METABOLIC PANEL (07-07-2012 10:00) Glucose 92 74-106 complet 013 mg/dL ed Bld-mCn 10:00 c BUN 18 7-18 complet Bld-mCn 013 mg/dL ed c 10:00 Creat 0.8 0.6-1.0 complet SerPl-m 013 mg/dL ed Cnc 10:00 ESTIMAT 68 50-200 complet ED 013 ML/MIN ed CREATIN 10:00 INE CLEARAN CE GFR 70 59- complet (ESTIMA 013 ML/MIN ed DWAYNE) 10:00 Sodium 07-07- 141 136-145 complet SerPl-s 013 mmoL/L ed Cnc 10:00 Potassi 3.7 3.5-5.1 complet um 013 mmoL/L ed SerPl-s 10:00 Cnc Chlorid 102 98-107 complet e 013 mmoL/L ed SerPl-s 10:00 Cnc CO2 30 21.0-32 complet SerPl-s 013 mmoL/L .0 ed Cnc 10:00 Calcium 07-07- 8.8 8.5-10. complet 013 mg/dL 1 ed SerPl-m 10:00 Cnc PROTIME/INR (07-07-2012 10:00) PROTHRO -22-2 15.2 9.8-11. complet MBIN 013 SECONDS 0 ed TIME 10:00 INR Bld 07-07-2 1.47 0.9-1.1 complet 013 UNK ed 10:00 LIPID PROFILE (07-06-2012 06:10) Cholest 07-06-2 166 Less complet 013 mg/dL than ed SerPl-m 06:10 200 Cnc HDLc 07-06-2 67.0 40-60 complet SerPl-m 013 MG/DL ed Cnc 06:10 LDLc 07-06-2 80.2 0-130 complet SerPl 013 mg/dL ed Calc-mC 06:10 nc VLDL 07-06-2 18.8 0-40 complet CHOLEST 013 UNK ed REBECCA 06:10 Trigl 07-06-2 94 30-200 complet SerPl-m 013 mg/dL ed Cnc 06:10 PROTIME/INR (07-06-2012 06:10) PROTHRO 07-06-2 14.2 9.8-11. complet MBIN 013 SECONDS 0 ed TIME 06:10 INR Bld 07-06-2 1.37 0.9-1.1 complet 013 UNK ed 06:10 URINALYSIS/COMPLETE (07-05-2012 15:12) URINE 07-05-2 YELLOW YELLOW complet COLOR 013 ed 15:12 URINE 07-05-2 CLEAR CLEAR complet APPEARA 013 ed NCE 15:12 URINE 07-05-2 NEGATIV NEG complet GLUCOSE 013 E ed - 15:12 DIPSTIC K URINE 07-05-2 NEGATIV NEG complet BILIRUB 013 E ed IN - 15:12 DIPSTIC K URINE 07-05-2 NEGATIV NEG complet KETONE 013 E mg/dL ed 15:12 URINE 07-05-2 1.020 1.005-1 complet SPECIFI 013 UNK .030 ed C 15:12 GRAVITY URINE 07-05-2 NEGATIV NEG complet BLOOD 013 E ed 15:12 URINE 07-05-2 6.0 UNK 5.0-8.5 complet PH 013 ed 15:12 URINE 07-05-2 NEGATIV NEG complet PROTEIN 013 E mg/dL ed - 15:12 DIPSTIC K URINE 0.2 NEG complet UROBILI 013 E.U./dL ed NOGEN - 15:12 DIPSTIC K URINE NEGATIV NEG complet NITRATE 013 E ed - 15:12 DIPSTIC K URINE NEGATIV NEG complet LEUK 013 E ed ESTERAS 15:12 E URINE 3-5 0-5 complet SQUAMOU 013 #/hpf ed S CELLS 15:12 URINE TRACE O complet BACTERI 013 ed A 15:12 PROTIME/INR (07-05-2012 14:17) PROTHRO 14.0 9.8-11. complet MBIN 013 SECONDS 0 ed TIME 14:17 INR Bld 1.35 0.9-1.1 complet 013 UNK ed 14:17 COMPREHENSIVE METABOLIC PANEL (07-05-2012 13:50) Glucose 148 74-106 complet 013 mg/dL ed Bld-mCn 13:50 c BUN 15 7-18 complet Bld-mCn 013 mg/dL ed c 13:50 Creat 0.7 0.6-1.0 complet SerPl-m 013 mg/dL ed Cnc 13:50 GFR 82 59- complet (ESTIMA 013 ML/MIN ed DWAYNE) 13:50 Sodium 141 136-145 complet SerPl-s 013 mmoL/L ed Cnc 13:50 Potassi 4.0 3.5-5.1 complet um 013 mmoL/L ed SerPl-s 13:50 Cnc Chlorid 107 98-107 complet e 013 mmoL/L ed SerPl-s 13:50 Cnc CO2 28 21.0-32 complet SerPl-s 013 mmoL/L .0 ed Cnc 13:50 Calcium 8.8 8.5-10. complet 013 mg/dL 1 ed SerPl-m 13:50 Cnc Prot 6.1 6.4-8.2 complet SerPl-m 013 gm/dL ed Cnc 13:50 Albumin 3.2 3.4-5.0 complet 013 gm/dL ed SerPl-m 13:50 Cnc Globuli 20-2 2.9 1.3-3.2 complet n 013 gm/dL ed Ser-mCn 13:50 c Albumin 20-2 1.1 UNK 1.1-1.8 complet /Glob 013 ed SerPl-m 13:50 Rto Bilirub 20-2 0.6 0.2-1.0 complet 013 mg/dL ed SerPl-m 13:50 Cnc AST 20-2 32 U/L 15-37 complet SerPl-c 013 ed Cnc 13:50 ALT -20-2 58 U/L 30-65 complet SerPl-c 013 ed Cnc 13:50 ALP -20-2 165 U/L 50-136 complet SerPl-c 013 ed Cnc 13:50 CBC with AUTO DIFF (07-05-2012 13:50) WBC # 03-20-2 6.4 4.8-10. complet Bld 013 K/MM3 8 ed Auto 13:50 RBC # 03-20-2 4.25 4.2-5.4 complet Bld 013 M/mm3 ed Auto 13:50 Hgb -20-2 13.6 12.2-16 complet Bld-mCn 013 g/dL .2 ed c 13:50 Hct Fr 20-2 41.4 % 37.0-47 complet Bld 013 .0 ed 13:50 MCV RBC -20-2 97.3 fl 82.2-97 complet 013 .8 ed 13:50 MCH RBC -20-2 32.1 pg 27-31.2 complet Qn 013 ed Auto 13:50 MEAN -20-2 33.0 31.8-35 complet CORPUSC 013 g/dl .4 ed ULAR 13:50 HGB CONC RDW RBC 03-20-2 14.3 % 11.5-17 complet Auto 013 .5 ed 13:50 Platele 03-20-2 225 142-424 complet t Bld 013 K/mm3 ed Ql 13:50 Manual MEAN 03-20-2 8.1 fl 7.4-10. complet PLATELE 013 4 ed T 13:50 VOLUME Granulo 03-20-2 68.2 % 37.0-80 complet cytes 013 .0 ed Fr Bld 13:50 Auto LYMPH % -20-2 21.8 % 10-50.0 complet 013 ed 13:50 Monocyt 03-20-2 6.8 % 1.7-9.3 complet es Fr 013 ed Bld 13:50 Auto Eosinop 03-20-2 3.0 % 0.1-12. complet hil Fr 013 0 ed Bld 13:50 Auto Basophi 03-20-2 0.1 % 0.1-2.0 complet ls Fr 013 ed Bld 13:50 Auto Granulo 03-20-2 4.4 1.8-7.8 complet cytes # 013 K/mm3 ed Bld 13:50 Auto Lymphoc 03-20-2 1.4 0.7-4.5 complet ytes Fr 013 K/mm3 ed Bld 13:50 Auto Monocyt 03-20-2 0.4 0.1-1.0 complet es # 013 K/mm3 ed Bld 13:50 Auto Eosinop 03-20-2 0.2 0.0-0.4 complet hil # 013 K/mm3 ed Bld 13:50 Auto Basophi 03-20-2 0.0 0-0.2 complet ls # 013 K/MM3 ed Bld 13:50 Auto Procedures Procedure DOS Code Location Performer Comment ANT NASAL 21.01 [facility] [place] [facility] PRICE EPIST Encounters Encounter Start End Date Code Location Performer Type Date Inpatient REYNALDO Lomeli MD (IN) 3 20:00 3 19:22 [facility] Emergency DOROTEO Sharma (ER) 3 14:42 3 15:55 [facility] Inpatient REYNALDO COLNO MD (IN) 3 14:05 3 18:45 [facility]
--- OUTSIDE RECORDS SUMMARY | 2017-03-08 11:11 | External Medical Summary Rpt | CCD ---
Author Author , MARYAN STEINBERG Address Unknown Phone Care Team Providers Care Stockroom Worker Name Role Phone Ernesto Lomeli MD, Unavailable Unavailable Ernesto Mancini MD, Unavailable Unavailable Karo Mancini MD Purpose Continuity of Care Document - 07-05-2012 through 2016 Problems Code Diagnosis DOS Provider Status 244.0 244.0 04-09-2013 Industry POSTSURGICA [facility] HYPOTHYROID 244.9 244.9 04-09-2013 Industry HYPOTHYROID [facility] IS NOS Hospital 272.4 272.4 04-09-2013 Industry HYPERLIPIDE [facility] NEC/NOS Hospital 401.9 401.9 04-09-2013 Industry HYPERTENSIO [facility] N [facility] Hospital 424.0 424.0 04-09-2013 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 493.90 493.90 04-09-2013 Industry ASTHMA, [facility] UNSPECIFIED Hospital 564.1 564.1 04-09-2013 Industry 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 715.90 715.90 04-09-2013 Industry OSTEOARTHRO [facility] S [facility] NOS-UNSPEC 784.7 784.7 04-09-2013 Industry EPISTAXIS [facility] V12.51 V12.51 04-09-2013 Industry HX-VENOUS [facility] THROMBOSIS& Hospital EMBOLISM V58.61 V58.61 04-09-2013 Industry ANTICOAGULA [facility] NTS,LT,[facility] ENT USE V58.69 V58.69 OTH 04-09-2013 Industry MED,LT,[facility] ENT USE Hospital 356.9 356.9 IDIO 07-07-2012 Industry PERIPH [facility] NEURPTHY [facility] NOS 435.9 435.9 TRANS 07-07-2012 Industry 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 496 496 [facility] 07-07-2012 Souleymane AIRWAY [facility] OBSTRUCT [facility] NEC 573.3 573.3 07-07-2012 Souleymane HEPATITIS [facility] NOS Hospital 625.6 625.6 FEM 07-07-2012 Souleymane STRESS [facility] INCONTINENC [facility] E 729.81 729.81 07-07-2012 Souleymane SWELLING OF [facility] 599.0 599.71 786.05 V58.81 Allergies, Adverse Reactions, [...] 00 12 0 No TA 40 -2 OK 99 2- Lo N 15 20 ng [...] TH 74 -2 YL 60 2- Lo IL 00 20 ng ED 10 13 er [...] TH 74 -2 YL 60 1- Lo IL 00 20 ng ED 10 13 er [...] Ac ti MG ve TA BL ET [place] 51 03 2 No AV 07 -2 [...] SQUARE METERS Comment: If this patient is -[place], then multiply the Comment: result by 1.210. [...] blood 10:37 platele t mean volume laura [place] % = 6.2 % 1.7-9.3 complet 017 [...] SQUARE METERS Comment: If this patient is -[place], then multiply the Comment: result by 1.210. [...] blood 11:58 platele t mean volume laura [place] % = 3.7 % 1.7-9.3 complet 017 [...] opy Bacterial body fluid culture (02-25-2017) Bacteri [id number] complet al body 017 ed fluid Staphyl [...] Results sent to: Ernesto Lomeli MD 02/14/17 5013 Comment: Titus Forrester Pharmacist recommendation for Warfarin [...] (IN) 3 20:00 3 19:22 [facility] Emergency DOROTEO Sharma (ER) 3 14:42 3 15:55 [facility] Inpatient REYNALDO COLON MD ([place]) 3 14:05 3 18:45 [facility]
--- OUTSIDE RECORDS SUMMARY | 2017-03-08 11:13 | External Medical Summary Rpt | CCD ---
Author Author [employer] Organization [employer] Address Unknown Phone Unavailable Purpose Continuity of Care Document - through 2016
--- OUTSIDE RECORDS SUMMARY | 2017-03-08 11:13 | External Medical Summary Rpt | CCD ---
Demographics Preferred Language Mauritanian Marital Status Unknown Buddhist Affiliation Unknown Race Unknown Ethnic Group Unknown Author Author MARYAN Address Unknown Phone Immunization No patient found.
--- OUTSIDE RECORDS SUMMARY | 2017-03-08 11:13 | External Medical Summary Rpt | CCD ---
Demographics Preferred Language Finnish Marital Status Unknown Scientologist Affiliation Unknown Race Unknown Ethnic Group Unknown Author Author MARYAN Address Unknown Phone Immunization No patient found.
--- OUTSIDE RECORDS SUMMARY | 2017-03-08 11:14 | External Medical Summary Rpt ---
Author Author [facility] [employer], [facility] [employer] Address Unknown Phone Unavailable Results INR in Blood by Coagulation assay Observa Value Referen Units Interpr Notes Date tion ce etation Range INR in 0.9 - 1.1 No High Results Mar 07 Blood by informati sent to: 2017 Coagulati on in [place] 11:30 AM on assay source Ernesto PRICE data E. 03/07/17 [id number] Baldemar armas Pharmacis t recommend ation for Warfarint herapy is: PATIENT INR 2.4 TODAY VIA FINGERSTI CK.RECOMM ENDED PATIENT CONTINUE WITH WARFARIN 2.5 MG ONTUE/TUE /TUE; 3.75 MG ON TUE/TUE/T HU/SAT. 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 WILLFOLLO W CLOSELY UNTIL OFF OF THE ABX.F OR DETAILED INFORMATI ON-PLEASE REVIEW PROGRESS NOTEI N THE ASSESSMEN TS AND ANTICOAGU LATION CLINIC SECTIONAN TICOAGULA TION CLINIC IN PCI/CLINI NIKOLE REVIEWIND ICATION INR RANGETHER APY FOR DVT, PE, ATRIAL FIB; 2.0 - 3.0PROPHY LAXIS FOR VTETHERAP Y FOR MECHANICA L HEART 2.5 - 3.5VALVE; PREVENTIO N OF SYSTEMICE MBOLISM SECONDARY TO AMI Comprehensive metabolic 2000 panel in Serum or Plasma Observa Value Referen Units Interpr Notes Date ti ce etation Range Albumin/G 1.1 - 1.8 No Low No Feb 28 lobulin informati informati 2016 [Mass on in on in 10:37 AM ratio] in source source Serum or data data Plasma Albumin 3.4 - 5.0 gm/dL Low No Feb 28 [Mass/vol informati 2016 ume] in on in 10:37 AM Serum or source Plasma data Alkaline 46 - 116 U/L High No Feb 28 phosphata informati 2016 se on in 10:37 AM [Enzymati source c data activity/ volume] in Serum or Plasma Bilirubin 0.2 - 1.0 mg/dL Normal No Feb 28 .total informati 2016 [Mass/vol on in 10:37 AM ume] in source Serum or data Plasma Urea 7 - 18 mg/dL High No Feb 28 nitrogen informati 2016 [Mass/vol on in 10:37 AM ume] in source Serum or data Plasma Calcium 8.5 - mg/dL Normal No Feb 28 [Mass/vol 10.1 informati 2016 ume] in on in 10:37 AM Serum or source Plasma data Chloride 98 - 107 mmoL/L Normal No Feb 28 [Moles/vo informati 2016 lume] in on in 10:37 AM Serum or source Plasma data Carbon 21.0 - mmoL/L Normal No Feb 28 dioxide, 32.0 informati 2016 total on in 10:37 AM [Moles/vo source lume] in data Serum or Plasma Creatinin 0.55 - mg/dL High No Feb 28 e 1.02 informati 2016 [Mass/vol on in 10:37 AM ume] in source Serum or data Plasma Estimated 59- ML/MIN Low REFERENCE Feb 28 RANGE: 2017 glomerula >60 10:37 AM r ML/MIN/1. filtratio 73 SQUARE n rate METERSIf (GF this patient is -A merican, then multiply theresult by 1.210. Globulin 1.3 - 3.2 gm/dL Normal No Feb 28 [Mass/vol informati 2016 ume] in on in 10:37 AM Serum source data Glucose 74 - 106 mg/dL High No Feb 28 [Mass/vol informati 2016 ume] in on in 10:37 AM Serum or source Plasma data Potassium 3.5 - 5.1 mmoL/L Normal No Feb 28 inform2016 [Moles/vo on in 10:37 AM lume] in source Serum or data Plasma Sodium 136 - 145 mmoL/L Normal Feb 28 [Moles/vo informati 2016 lume] in on in 10:37 AM Serum or source Plasma data Aspartate 15 - 37 U/L Normal No Feb 282016 aminotran on in 10:37 AM sferase source [Enzymati data c activity/ volume] in Serum or Plasma Alanine 12 - 78 U/L Normal No Feb 28 aminotran 2016 sferase on in 10:37 AM [Enzymati source c data activity/ volume] in Serum or Plasma Protein 6.4 - 8.2 gm/dL Low No Feb 28 [Mass/vol informati 2016 ume] in on in 10:37 AM Serum or source Plasma data Ammonia [Mass/volume] in Unspecified specimen Observa Value Referen Units Interpr Notes Date tion ce etation Range Ammonia 19 - 54 umoL/L Low No Feb 28 [Mass/vol informati 2016 ume] in on in 10:37 AM Unspecifi source ed data specimen INR in Blood by Coagulation assay Observa Value Referen Units Interpr Notes Date tion ce etation Range INR in 0.9 - 1.1 No High INDICATIO Feb 28 Blood by informati N 2016 Coagulati on in 10:37 AM on assay source INR data RANGETHER APY FOR DVT, PE, ATRIAL FIB; 2.0 - 3.0PROPHY LAXIS FOR VTETHERAP Y FOR MECHANICA L HEART 2.5 - 3.5VALVE; PREVENTIO N OF SYSTEMICE MBOLISM SECONDARY TO AMI Prothromb 9.4 - SECONDS High No Feb 28 in time 11.8 informati 2016 (PT) in on in 10:37 AM Platelet source poor data plasma by Coagulati on assay INR in Blood by Coagulation assay Observa Value Referen Units Interpr Notes Date ti ce etation Range INR in 0.9 - 1.1 No High INDICATIO Feb 28 Blood by informati N 2016 Coagulati on in 10:37 AM on assay source INR data RANGETHER APY FOR DVT, PE, ATRIAL FIB; 2.0 - 3.0PROPHY LAXIS FOR VTETHERAP Y FOR MECHANICA L HEART 2.5 - 3.5VALVE; PREVENTIO N OF SYSTEMICE MBOLISM SECONDARY TO AMI Prothromb 9.4 - SECONDS High No Feb 28 in time 11.8 informati 2016 (PT) in on in 10:37 AM Platelet source poor data plasma by Coagulati on assay CBC W Auto Differential panel in Blood Observa Value Referen Units Interpr Notes Date tion ce etation Range Basophils 0 - 0.2 K/MM3 Normal No Feb 282016 [#/volume on in 10:37 AM ] in source Blood by data Automated count Basophils 0.1 - 2.0 % Normal No Feb 28 /100 2016 leukocyte on in 10:37 AM s in source Blood by data Automated count Eosinophi 0.0 - 0.4 K/mm3 Normal No Feb 28 ls inform2016 [#/volume on in 10:37 AM ] in source Blood by data Automated count Eosinophi 0.1 - % Normal No Feb 28 ls/100 12.0 inform2016 leukocyte on in 10:37 AM s in source Blood by data Automated count Granulocy 1.8 - 7.8 K/mm3 Normal No Feb 28 bala inform2016 [#/volume on in 10:37 AM ] in source Blood by data Automated count Granulocy 37.0 - % High No Feb 28 bala/100 80.0 inform2016 leukocyte on in 10:37 AM s in source Blood by data Automated count Hematocri 37.0 - % Low No Feb 28 t [Volume 47.0 ati 2016 on in 10:37 AM Fraction] source of Blood data Hemoglobi 12.2 - g/dL Low No Feb 28 n 16.2 inform2016 [Mass/vol on in 10:37 AM ume] in source Blood data Lymphocyt 0.7 - 4.5 K/mm3 Normal No Feb 28 es 2016 [#/volume on in 10:37 AM ] in source Unspecifi data ed specimen by Automated count Lymphocyt 10 - 50.0 % Normal No Feb 28 es 2016 [#/volume on in 10:37 AM ] in source Unspecifi data ed specimen by Automated count Erythrocy 27 - 31.2 pg High No Feb 28 te mean 2016 corpuscul on in 10:37 AM ar source hemoglobi data n [Entitic mass] Erythrocy 31.8 - g/dl Normal No Feb 28 te mean 35.4 2016 corpuscul on in 10:37 AM ar source hemoglobi data n concentra tion [Mass/vol ume] by Automated count Erythrocy 82.2 - fl High No Feb 28 te mean 97.8 2016 corpuscul on in 10:37 AM ar volume source [Entitic data volume] by Automated count Monocytes 0.1 - 1.0 K/mm3 Normal No Feb 282016 [#/volume on in 10:37 AM ] in source Blood by data Automated count Monocytes 1.7 - 9.3 % Normal No Feb 28 /2016 leukocyte on in 10:37 AM s in source Blood by data Automated count Platelet 7.4 - fl Normal No Feb 28 mean 10.4 2016 volume on in 10:37 AM [Entitic source volume] data in Blood by Automated count Platelets 142 - 424 K/mm3 Normal No Feb 282016 [#/volume on in 10:37 AM ] in source Blood data Erythrocy 4.2 - 5.4 M/mm3 Low No Feb 28 bala 2016 [#/volume on in 10:37 AM ] in source Amniotic data fluid Erythrocy 11.5 - % Normal Feb 28 te 17.5 2016 distribut on in 10:37 AM ion width source [Entitic data volume] by Automated count Leukocyte 4.8 - K/MM3 No Feb 28 s 10.8 ati 2016 [#/volume on in on in 10:37 AM ] in source source Blood data data CBC W Auto Differential panel in Blood Observa Value Referen Units Interpr Notes Date tion ce etation Range Basophils 0 - 0.2 K/MM3 Normal No Feb 252016 [#/volume on in 11:58 AM ] in source Blood by data Automated count Basophils 0.1 - 2.0 % Normal No Feb 25 /2016 leukocyte on in 11:58 AM s in source Blood by data Automated count Eosinophi 0.0 - 0.4 K/mm3 Normal No Feb 25 ls 2016 [#/volume on in 11:58 AM ] in source Blood by data Automated count Eosinophi 0.1 - % Normal No Feb 25 ls/100 12.0 2016 leukocyte on in 11:58 AM s in source Blood by data Automated count Granulocy 1.8 - 7.8 K/mm3 High No Feb 25 bala 2016 [#/volume on in 11:58 AM ] in source Blood by data Automated count Granulocy 37.0 - % High No Feb 25 bala/100 80.0 2016 leukocyte on in 11:58 AM s in source Blood by data Automated count Hematocri 37.0 - % Low Feb 25 t [Volume 47.0 2016 on in 11:58 AM Fraction] source of Blood data Hemoglobi 12.2 - g/dL Low No Feb 25 n 16.2 2016 [Mass/vol on in 11:58 AM ume] in source Blood data Lymphocyt 0.7 - 4.5 K/mm3 Normal No Feb 25 es 2016 [#/volume on in 11:58 AM ] in source Unspecifi data ed specimen by Automated count Lymphocyt 10 - 50.0 % Low No Feb 25 es 2016 [#/volume on in 11:58 AM ] in source Unspecifi data ed specimen by Automated count Erythrocy 27 - 31.2 pg High No Feb 25 te mean 2016 corpuscul on in 11:58 AM ar source hemoglobi data n [Entitic mass] Erythrocy 31.8 - g/dl Normal Feb 25 te mean 35.4 2016 corpuscul on in 11:58 AM ar source hemoglobi data n concentra tion [Mass/vol ume] by Automated count Erythrocy 82.2 - fl High Feb 25 te mean 97.8 2016 corpuscul on in 11:58 AM ar volume source [Entitic data volume] by Automated count Monocytes 0.1 - 1.0 K/mm3 Normal Feb 252016 [#/volume on in 11:58 AM ] in source Blood by data Automated count Monocytes 1.7 - 9.3 % Normal No Feb 10 /100 2016 leukocyte on in 11:58 AM s in source Blood by data Automated count Platelet 7.4 - fl Normal Feb 25 mean 10.4 2016 volume on in 11:58 AM [Entitic source volume] data in Blood by Automated count Platelets 142 - 424 K/mm3 Normal Feb 252016 [#/volume on in 11:58 AM ] in source Blood data Erythrocy 4.2 - 5.4 M/mm3 Low No Feb 25 bala 2016 [#/volume on in 11:58 AM ] in source Amniotic data fluid Erythrocy 11.5 - % Normal Feb 25 te 17.5 2016 distribut on in 11:58 AM ion width source [Entitic data volume] by Automated count Leukocyte 4.8 - K/MM3 High No Feb 25 s 10.8 2016 [#/volume on in 11:58 AM ] in source Blood data Differential panel, method unspecified - Observa Value Referen Units Interpr Notes Date tion ce etation Range Neutrophi 0 - 8 % High Feb 25 ls.band 2016 form/100 on in 11:58 AM leukocyte source s in data Blood by Automated count LYMPH 4 10 - 50 % Low No Feb 252016 tion in 11:58 source AM data Monocytes 2 - 9 % Normal No Feb 10 /100 informati 2016 leukocyte on in 11:58 AM s in source Blood by data Automated count Platele NORMAL No No No No Feb 10 ts informa informa informa informa 2016 [Presen tion in tion in tion in tion in 11:58 ce] in source source source source AM Blood data data data data by Light microsc opy Neutrophi 42 - 76 % High No Feb 25 ls informati 2016 [#/volume on in 11:58 AM ] in source Blood by data Automated count Cells No #CELLS No No Feb 25 Counted informati informati informati 2016 Total [#] on in on in on in 11:58 AM in Blood source source source data data data Basic metabolic panel in Blood Observa Value Referen Units Interpr Notes Date tion ce etation Range Urea 7 - 18 mg/dL High No Feb 25 nitrogen informati 2016 [Mass/vol on in 11:58 AM ume] in source Serum or data Plasma Calcium 8.5 - mg/dL Normal No Feb 25 [Mass/vol 10.1 informati 2016 ume] in on in 11:58 AM Serum or source Plasma data Chloride 98 - 107 mmoL/L Normal No Feb 25 [Moles/vo informati 2016 lume] in on in 11:58 AM Serum or source Plasma data Carbon 21.0 - mmoL/L Normal No Feb 25 dioxide, 32.0 informati 2016 total on in 11:58 AM [Moles/vo source lume] in data Serum or Plasma Creatinin 0.55 - mg/dL Normal No Feb 25 e 1.02 informati 2016 [Mass/vol on in 11:58 AM ume] in source Serum or data Plasma Estimated 59- ML/MIN No REFERENCE Feb 25 informati RANGE: 2017 glomerula on in >60 11:58 AM r source ML/MIN/1. filtratio data 73 SQUARE n rate METERSIf (GF this patient is -A merican, then multiply theresult by 1.210. Glucose 74 - 106 mg/dL High No Feb 25 [Mass/vol informati 2016 ume] in on in 11:58 AM Serum or source Plasma data Potassium 3.5 - 5.1 mmoL/L Normal No Feb 25 informati 2016 [Moles/vo on in 11:58 AM lume] in source Serum or data Plasma Sodium 136 - 145 mmoL/L Normal No Feb 25 [Moles/vo informati 2016 lume] in on in 11:58 AM Serum or source Plasma data INR in Blood by Coagulation assay Observa Value Referen Units Interpr Notes Date tion ce etation Range INR in 0.9 - 1.1 No High INDICATIO Feb 25 Blood by informati N 2016 Coagulati on in 11:58 AM on assay source INR data RANGETHER APY FOR DVT, PE, ATRIAL FIB; 2.0 - 3.0PROPHY LAXIS FOR VTETHERAP Y FOR MECHANICA L HEART 2.5 - 3.5VALVE; PREVENTIO N OF SYSTEMICE MBOLISM SECONDARY TO AMI Prothromb 9.4 - SECONDS High No Feb 25 in time 11.8 informati 2016 (PT) in on in 11:58 AM Platelet source poor data plasma by Coagulati on assay INR in Blood by Coagulation assay Observa Value Referen Units Interpr Notes Date tion ce etation Range INR in 0.9 - 1.1 No High Results Feb 14 Blood by informati sent to: 2016 Coagulati on in [place] 10:20 AM on assay source Ernesto PRICE data E. 02/14/17 [id number] enship,Baldemar mmy Pharmacis t recommend ation for Warfarint herapy is: PATIENT INR 2.4 TODAY VIA FINGERSTI CK.RECOMM ENDED PATIENT CONTINUE WITH CURRENT DOSE OF WARFARIN2 .5 MG ON MON/FRI; 3.75 MG ON TUE/TUE/W ED/JEMAL/SA T. WILLFOLLO W UP ON 03/25. FOR DETAILED INFORMATI ON-PLEASE REVIEW PROGRESS NOTEI N THE ASSESSMEN TS AND ANTICOAGU LATION CLINIC SECTIONAN TICOAGULA TION CLINIC IN PCI/CLINI NIKOLE REVIEWIND ICATION INR RANGETHER APY FOR DVT, PE, ATRIAL FIB; 2.0 - 3.0PROPHY LAXIS FOR VTETHERAP Y FOR MECHANICA L HEART 2.5 - 3.5VALVE; PREVENTIO N OF SYSTEMICE MBOLISM SECONDARY TO AMI INR in Blood by Coagulation assay Observa Value Referen Units Interpr Notes Date tion ce etation Range INR in 0.9 - 1.1 No High Results Jan 17 Blood by informati sent to: 2016 Coagulati on in [place] 11:00 AM on assay source Ernesto PRICE data E. 01/17/17 1549Blank Baldemar armas mmy Pharmacis t recommend ation for Warfarint herapy is: PATIENT INR 2.3 TODAY VIA FINGERSTI CK.RECOMM ENDED PATIENT CONTINUE WITH CURRENT DOSE OF WARFARIN2 .5 MG ON MON/FRI; 3.75 MG ON SUN/E/W ED/JEMAL/SA T.FOR DETAILED INFORMATI ON-PLEASE REVIEW PROGRESS NOTEI N THE ASSESSMEN TS AND ANTICOAGU LATION CLINIC SECTIONAN TICOAGULA TION CLINIC IN PCI/CLINI NIKOLE REVIEWIND ICATION INR RANGETHER APY FOR DVT, PE, ATRIAL FIB; 2.0 - 3.0PROPHY LAXIS FOR VTETHERAP Y FOR MECHANICA L HEART 2.5 - 3.5VALVE; PREVENTIO N OF SYSTEMICE MBOLISM SECONDARY TO AMI PT & aPTT panel in Platelet poor plasma by Coagulation assay Observa Value Referen Units Interpr Notes Date tion ce etation Range LIST ANTICOAGULANTS: WARFARIN INR in 0.9 - 1.1 No High INDICATIO Sep 18 Blood by informati N 2016 8:50 Coagulati on in AM on assay source INR data RANGETHER APY FOR DVT, PE, ATRIAL FIB; 2.0 - 3.0PROPHY LAXIS FOR VTETHERAP Y FOR MECHANICA L HEART 2.5 - 3.5VALVE; PREVENTIO N OF SYSTEMICE MBOLISM SECONDARY TO AMI Prothromb 9.4 - SECONDS High No Sep 18 in time 11.8 informati 2017 8:50 (PT) in on in AM Platelet source poor data plasma by Coagulati on assay Activated 23.6 - SECONDS Normal No Sep 18 partial 34.0 informati 2017 8:50 thrombpla on in AM stin time source (aPTT) data in Platelet poor plasma by Coagulati on assay CBC W Auto Differential panel in Blood Observa Value Referen Units Interpr Notes Date tion ce etation Range Basophils 0 - 0.2 K/MM3 Normal No Sep 18 informati 2017 8:50 [#/volume on in AM ] in source Blood by data Automated count Basophils 0.1 - 2.0 % Normal No Sep 18 /100 informati 2017 8:50 leukocyte on in AM s in source Blood by data Automated count Eosinophi 0.0 - 0.4 K/mm3 Normal No Sep 18 ls informati 2016 8:50 [#/volume on in AM ] in source Blood by data Automated count Eosinophi 0.1 - % Normal No Sep 18 ls/100 12.0 informati 2016 8:50 leukocyte on in AM s in source Blood by data Automated count Granulocy 1.8 - 7.8 K/mm3 Normal No Sep 18 bala informati 2016 8:50 [#/volume on in AM ] in source Blood by data Automated count Granulocy 37.0 - % High No Sep 18 bala/100 80.0 informati 2016 8:50 leukocyte on in AM s in source Blood by data Automated count Hematocri 37.0 - % Low No Sep 18 t [Volume 47.0 informati 2016 8:50 on in AM Fraction] source of Blood data Hemoglobi 12.2 - g/dL Normal No Sep 18 n 16.2 informati 2016 8:50 [Mass/vol on in AM ume] in source Blood data Lymphocyt 0.7 - 4.5 K/mm3 Normal No Sep 18 es informati 2016 8:50 [#/volume on in AM ] in source Unspecifi data ed specimen by Automated count Lymphocyt 10 - 50.0 % Normal No Sep 18 es informati 2016 8:50 [#/volume on in AM ] in source Unspecifi data ed specimen by Automated count Erythrocy 27 - 31.2 pg High No Sep 18 te mean informati 2016 8:50 corpuscul on in AM ar source hemoglobi data n [Entitic mass] Erythrocy 31.8 - g/dl Normal No Sep 18 te mean 35.4 informati 2016 8:50 corpuscul on in AM ar source hemoglobi data n concentra tion [Mass/vol ume] by Automated count Erythrocy 82.2 - fl High No Sep 18 te mean 97.8 informati 2016 8:50 corpuscul on in AM ar volume source [Entitic data volume] by Automated count Monocytes 0.1 - 1.0 K/mm3 Normal No Sep 18 informati 2016 8:50 [#/volume on in AM ] in source Blood by data Automated count Monocytes 1.7 - 9.3 % Normal No Sep 18 /100 informati 2016 8:50 leukocyte on in AM s in source Blood by data Automated count Platelet 7.4 - fl Normal No Sep 18 mean 10.4 informati 2017 8:50 volume on in AM [Entitic source volume] data in Blood by Automated count Platelets 142 - 424 K/mm3 Normal No Sep 18 informati 2016 8:50 [#/volume on in AM ] in source Blood data Erythrocy 4.2 - 5.4 M/mm3 Low No Sep 18 bala informati 2016 8:50 [#/volume on in AM ] in source Amniotic data fluid Erythrocy 11.5 - % Normal No Sep 18 te 17.5 informati 2016 8:50 distribut on in AM ion width source [Entitic data volume] by Automated count Leukocyte 4.8 - K/MM3 Normal No Sep 18 s 10.8 informati 2016 8:50 [#/volume on in AM ] in source Blood data Basic metabolic panel in Blood Observa Value Referen Units Interpr Notes Date tion ce etation Range Urea 7 - 18 mg/dL High No Sep 18 nitrogen informati 2016 8:50 [Mass/vol on in AM ume] in source Serum or data Plasma Calcium 8.5 - mg/dL Normal No Sep 18 [Mass/vol 10.1 informati 2016 8:50 ume] in on in AM Serum or source Plasma data Chloride 98 - 107 mmoL/L Normal No Sep 18 [Moles/vo informati 2016 8:50 lume] in on in AM Serum or source Plasma data Carbon 21.0 - mmoL/L Normal No Sep 18 dioxide, 32.0 informati 2016 8:50 total on in AM [Moles/vo source lume] in data Serum or Plasma Creatinin 0.55 - mg/dL Normal No Sep 18 e 1.02 informati 2016 8:50 [Mass/vol on in AM ume] in source Serum or data Plasma Estimated 59- ML/MIN Low REFERENCE Sep 18 RANGE: 2017 8:50 glomerula >60 AM r ML/MIN/1. filtratio 73 SQUARE n rate METERSIf (GF this patient is -A merican, then multiply theresult by 1.210. Glucose 74 - 106 mg/dL High No Sep 18 [Mass/vol informati 2016 8:50 ume] in on in AM Serum or source Plasma data Potassium 3.5 - 5.1 mmoL/L Normal No Sep 18 informati 2016 8:50 [Moles/vo on in AM lume] in source Serum or data Plasma Sodium 136 - 145 mmoL/L Normal No Sep 18 [Moles/vo informati 2017 8:50 lume] in on in AM Serum or source Plasma data Basic metabolic panel in Blood Observa Value Referen Units Interpr Notes Date tion ce etation Range Urea 7 - 18 mg/dL High No Sep 15 nitrogen informati 2016 [Mass/vol on in 12:04 PM ume] in source Serum or data Plasma Calcium 8.5 - mg/dL Normal No Sep 15 [Mass/vol 10.1 informati 2016 ume] in on in 12:04 PM Serum or source Plasma data Chloride 98 - 107 mmoL/L Normal No Sep 15 [Moles/vo informati 2017 lume] in on in 12:04 PM Serum or source Plasma data Carbon 21.0 - mmoL/L Normal No Sep 15 dioxide, 32.0 informati 2017 total on in 12:04 PM [Moles/vo source lume] in data Serum or Plasma Creatinin 0.55 - mg/dL Normal No Sep 15 e 1.02 informati 2016 [Mass/vol on in 12:04 PM ume] in source Serum or data Plasma Estimated 59- ML/MIN Low REFERENCE Sep 15 RANGE: 2017 glomerula >60 12:04 PM r ML/MIN/1. filtratio 73 SQUARE n rate METERSIf (GF this patient is -A merican, then multiply theresult by 1.210. Glucose 74 - 106 mg/dL High No Sep 15 [Mass/vol informati 2017 ume] in on in 12:04 PM Serum or source Plasma data Potassium 3.5 - 5.1 mmoL/L Normal No Sep 15 informati 2016 [Moles/vo on in 12:04 PM lume] in source Serum or data Plasma Sodium 136 - 145 mmoL/L Normal No Sep 15 [Moles/vo informati 2017 lume] in on in 12:04 PM Serum or source Plasma data Hemoglobin A1c in Blood Observa Value Referen Units Interpr Notes Date tion ce etation Range Hemoglo 6.6 0.0 - % Normal < 6% Sep 15 bin A1c 7.0 NON-FEDERICO 2017 in BETIC 12:04 Blood LEVEL< PM 7% CONTROL LED DIABETI C LEVEL> 8% POORLY CONTROL LED DIABETI C LEVEL INR in Blood by Coagulation assay Observa Value Referen Units Interpr Notes Date tion ce etation Range INR in 0.9 - 1.1 No High Results Dec 06 Blood by informati sent to: 2016 Coagulati on in [place] 11:00 AM on assay source Ernesto PRICE data E. 12/06/16 1415BlanBaldemar vaz Pharmacis t recommend ation for Warfarint herapy is: PATIENT INR 2.6 TODAY VIA FINGERSTI CK.RECOMM ENDED PATIENT CONTINUE WITH CURRENT DOSE OF WARFARIN2 .5 MG ON MON/FRI; 3.75 MG ON SUN/TUE/W ED/JEMAL/SA T.FOR DETAILED INFORMATI ON-PLEASE REVIEW PROGRESS NOTEI N THE ASSESSMEN TS AND ANTICOAGU LATION CLINIC SECTIONAN TICOAGULA TION CLINIC IN PCI/CLINI NIKOLE REVIEWIND ICATION INR RANGETHER APY FOR DVT, PE, ATRIAL FIB; 2.0 - 3.0PROPHY LAXIS FOR VTETHERAP Y FOR MECHANICA L HEART 2.5 - 3.5VALVE; PREVENTIO N OF SYSTEMICE MBOLISM SECONDARY TO AMI Potassium [Moles/volume] in Serum or Plasma Observa Value Referen Units Interpr Notes Date tion ce etation Range Potassium 3.5 - 5.1 mmoL/L Normal No Nov 24 informati 2016 [Moles/vo on in 11:31 AM lume] in source Serum or data Plasma INR in Blood by Coagulation assay Observa Value Referen Units Interpr Notes Date tion ce etation Range INR in 0.9 - 1.1 No High Results Nov 08 Blood by informati sent to: 2016 Coagulati on in [place] 11:45 AM on assay source Ernesto PRICE data E. 11/08/16 1607Blank Baldemar armas Pharmacis t recommend ation for Warfarint herapy is: PATIENT INR 1.9 TODAY VIA FINGERSTI CK.RECOMM ENDED PATIENT TAKE EXTRA 1.25 MG TODAY AND THEN 2.5MG ON MON/TUE; 3.75 MG ON SUN/TUE/W ED/JEMAL/SA T.FOR DETAILED INFORMATI ON-PLEASE REVIEW PROGRESS NOTEI N THE ASSESSMEN TS AND ANTICOAGU LATION CLINIC SECTIONAN TICOAGULA TION CLINIC IN PCI/CLINI NIKOLE REVIEWIND ICATION INR RANGETHER APY FOR DVT, PE, ATRIAL FIB; 2.0 - 3.0PROPHY LAXIS FOR VTETHERAP Y FOR MECHANICA L HEART 2.5 - 3.5VALVE; PREVENTIO N OF SYSTEMICE MBOLISM SECONDARY TO AMI Angiotensin converting enzyme [Enzymatic activity/volume] in Serum or Plasma Observa Value Referen Units Interpr Notes Date tion ce etation Range Angiotens 14 - 82 U/L No Performed Nov 01 in informati at: CB 2016 3:14 convertin on in - [facility] PM g enzyme source [Enzymati data [id number] activity/ Road, volume] [place], in Serum [place] or Plasma [id number] Senior Environmental Engineer: Chano Berrios PhD, Phone: [phone] Iron and TIBC Observa Value Referen Units Interpr Notes Date tion ce etation Range Iron 250 - 450 ug/dL No No Nov 01 binding informati informati 2016 3:14 capacity on in on in PM [Mass/vol source source ume] in data data Serum or Plasma Iron 118 - 369 ug/dL No No Nov 01 binding informati informati 2016 3:14 capacity. on in on in PM unsaturat source source ed data data [Mass/vol ume] in Serum or Plasma Iron 27 - 139 ug/dL No No Nov 01 [Mass/vol informati informati 2016 3:14 ume] in on in on in PM Serum or source source Plasma data data Iron 15 - 55 % No Performed Nov 01 saturatio informati at: CB 2016 3:14 n [Mass] on in - [facility] PM in Serum source or Plasma data [id number], [place], [place] [id number] Senior Environmental Engineer: Chano Berrios PhD, Phone: [phone] Comprehensive metabolic 2000 panel in Serum or Plasma Observa Value Referen Units Interpr Notes Date tion ce etation Range Albumin/G 1.1 - 1.8 No Normal No Nov 01 lobulin informati informati 2016 3:14 [Mass on in on in PM ratio] in source source Serum or data data Plasma Albumin 3.4 - 5.0 gm/dL Low No Nov 01 [Mass/vol informati 2016 3:14 ume] in on in PM Serum or source Plasma data Alkaline 46 - 116 U/L Normal No Nov 01 phosphata informati 2016 3:14 se on in PM [Enzymati source c data activity/ volume] in Serum or Plasma Bilirubin 0.2 - 1.0 mg/dL Normal No Nov 01 .total informati 2016 3:14 [Mass/vol on in PM ume] in source Serum or data Plasma Urea 7 - 18 mg/dL High No Nov 01 nitrogen informati 2016 3:14 [Mass/vol on in PM ume] in source Serum or data Plasma Calcium 8.5 - mg/dL Normal No Nov 01 [Mass/vol 10.1 informati 2016 3:14 ume] in on in PM Serum or source Plasma data Chloride 98 - 107 mmoL/L Normal No Nov 01 [Moles/vo informati 2016 3:14 lume] in on in PM Serum or source Plasma data Carbon 21.0 - mmoL/L Normal No Nov 01 dioxide, 32.0 informati 2016 3:14 total on in PM [Moles/vo source lume] in data Serum or Plasma Creatinin 0.55 - mg/dL High No Nov 01 e 1.02 informati 2016 3:14 [Mass/vol on in PM ume] in source Serum or data Plasma Estimated 59- ML/MIN Low REFERENCE Nov 01 RANGE: 2017 3:14 glomerula >60 PM r ML/MIN/1. filtratio 73 SQUARE n rate METERSIf (GF this patient is -A merican, then multiply theresult by 1.210. Globulin 1.3 - 3.2 gm/dL Normal No Nov 01 [Mass/vol informati 2016 3:14 ume] in on in PM Serum source data Glucose 74 - 106 mg/dL High No Nov 01 [Mass/vol informati 2016 3:14 ume] in on in PM Serum or source Plasma data Potassium 3.5 - 5.1 mmoL/L High No Nov 01 informati 2016 3:14 [Moles/vo on in PM lume] in source Serum or data Plasma Sodium 136 - 145 mmoL/L Normal No Nov 01 [Moles/vo informati 2016 3:14 lume] in on in PM Serum or source Plasma data Aspartate 15 - 37 U/L Normal No Nov 01 informati 2016 3:14 aminotran on in PM sferase source [Enzymati data c activity/ volume] in Serum or Plasma Alanine 12 - 78 U/L Normal No Nov 01 aminotran informati 2016 3:14 sferase on in PM [Enzymati source c data activity/ volume] in Serum or Plasma Protein 6.4 - 8.2 gm/dL Low No Nov 01 [Mass/vol informati 2016 3:14 ume] in on in PM Serum or source Plasma data Ferritin [Mass/volume] in Serum or Plasma Observa Value Referen Units Interpr Notes Date ti ce etation Range Ferritin 8 - 388 ng/mL Normal No Nov 01 [Mass/vol informati 2016 3:14 ume] in on in PM Serum or source Plasma data CBC W Auto Differential panel in Blood Observa Value Referen Units Interpr Notes Date tion ce etation Range Basophils 0 - 0.2 K/MM3 Normal No Nov 01 informati 2016 3:14 [#/volume on in PM ] in source Blood by data Automated count Basophils 0.1 - 2.0 % Normal No Nov 01 / informati 2016 3:14 leukocyte on in PM s in source Blood by data Automated count Eosinophi 0.0 - 0.4 K/mm3 Normal No Nov 01 ls informati 2016 3:14 [#/volume on in PM ] in source Blood by data Automated count Eosinophi 0.1 - % Normal No Nov 01 ls/100 12.0 informati 2016 3:14 leukocyte on in PM s in source Blood by data Automated count Granulocy 1.8 - 7.8 K/mm3 Normal No Nov 01 bala informati 2016 3:14 [#/volume on in PM ] in source Blood by data Automated count Granulocy 37.0 - % High No Nov 01 bala/100 80.0 informati 2016 3:14 leukocyte on in PM s in source Blood by data Automated count Hematocri 37.0 - % Normal No Nov 01 t [Volume 47.0 informati 2016 3:14 on in PM Fraction] source of Blood data Hemoglobi 12.2 - g/dL Normal No Nov 01 n 16.2 informati 2016 3:14 [Mass/vol on in PM ume] in source Blood data Lymphocyt 0.7 - 4.5 K/mm3 Normal No Nov 01 es informati 2016 3:14 [#/volume on in PM ] in source Unspecifi data ed specimen by Automated count Lymphocyt 10 - 50.0 % Normal No Nov 01 es informati 2016 3:14 [#/volume on in PM ] in source Unspecifi data ed specimen by Automated count Erythrocy 27 - 31.2 pg High No Nov 01 te mean informati 2016 3:14 corpuscul on in PM ar source hemoglobi data n [Entitic mass] Erythrocy 31.8 - g/dl Normal No Nov 01 te mean 35.4 informati 2016 3:14 corpuscul on in PM ar source hemoglobi data n concentra tion [Mass/vol ume] by Automated count Erythrocy 82.2 - fl High No Nov 01 te mean 97.8 informati 2016 3:14 corpuscul on in PM ar volume source [Entitic data volume] by Automated count Monocytes 0.1 - 1.0 K/mm3 Normal No Nov 01 informati 2016 3:14 [#/volume on in PM ] in source Blood by data Automated count Monocytes 1.7 - 9.3 % Normal No Nov 01 /100 informati 2016 3:14 leukocyte on in PM s in source Blood by data Automated count Platelet 7.4 - fl Normal No Nov 01 mean 10.4 informati 2016 3:14 volume on in PM [Entitic source volume] data in Blood by Automated count Platelets 142 - 424 K/mm3 Normal No Nov 01 informati 2016 3:14 [#/volume on in PM ] in source Blood data Erythrocy 4.2 - 5.4 M/mm3 Low No Nov 01 bala informati 2016 3:14 [#/volume on in PM ] in source Amniotic data fluid Erythrocy 11.5 - % Normal No Nov 01 te 17.5 informati 2016 3:14 distribut on in PM ion width source [Entitic data volume] by Automated count Leukocyte 4.8 - K/MM3 Normal No Nov 01 s 10.8 ati 2016 3:14 [#/volume on in PM ] in source Blood data Ammonia [Mass/volume] in Unspecified specimen Observa Value Referen Units Interpr Notes Date tion ce etation Range Ammonia 19 - 54 umoL/L Normal No Nov 01 [Mass/vol informati 2016 3:14 ume] in on in PM Unspecifi source ed data specimen INR in Blood by Coagulation assay Observa Value Referen Units Interpr Notes Date tion ce etation Range INR in 0.9 - 1.1 No High INDICATIO Nov 01 Blood by informati N 2016 3:14 Coagulati on in PM on assay source INR data RANGETHER APY FOR DVT, PE, ATRIAL FIB; 2.0 - 3.0PROPHY LAXIS FOR VTETHERAP Y FOR MECHANICA L HEART 2.5 - 3.5VALVE; PREVENTIO N OF SYSTEMICE MBOLISM SECONDARY TO AMI Prothromb 9.4 - SECONDS High No Nov 01 in time 11.8 informati 2016 3:14 (PT) in on in PM Platelet source poor data plasma by Coagulati on assay Microalb/Creat Ratio, Randm Ur Observa Value Referen Units Interpr Notes Date tion ce etation Range Microalbu Not ug/mL No No Oct 11 min Estab. informati informati 2016 [Mass/vol on in on in 10:03 AM ume] in source source Urine data data Albumin/C 0.0 - No No INFCE Oct 11 reatinine 30.0 informati informati Result 2017 [Mass on in on in Units: 10:03 AM ratio] in source source mg/g Urine data data creatPerf ormed at: - [facility] [place] [id number] [address] [place] [id number] Senior Environmental Engineer: Chano Berrios PhD, Phone: [phone] Creatinin Not mg/dL No No Oct 11 e Estab. informati informati 2016 [Mass/vol on in on in 10:03 AM ume] in source source Urine data data Comprehensive metabolic 2000 panel in Serum or Plasma Observa Value Referen Units Interpr Notes Date tion ce etation Range Albumin/G 1.1 - 1.8 No Normal No Oct 11 lobulin informati informati 2016 [Mass on in on in 10:03 AM ratio] in source source Serum or data data Plasma Albumin 3.4 - 5.0 gm/dL Normal No Oct 11 [Mass/vol informati 2016 ume] in on in 10:03 AM Serum or source Plasma data Alkaline 46 - 116 U/L Normal No Oct 11 phosphata informati 2016 se on in 10:03 AM [Enzymati source c data activity/ volume] in Serum or Plasma Bilirubin 0.2 - 1.0 mg/dL Normal No Oct 11 .total informati 2016 [Mass/vol on in 10:03 AM ume] in source Serum or data Plasma Urea 7 - 18 mg/dL High No Oct 11 nitrogen informati 2016 [Mass/vol on in 10:03 AM ume] in source Serum or data Plasma Calcium 8.5 - mg/dL Normal No Oct 11 [Mass/vol 10.1 informati 2016 ume] in on in 10:03 AM Serum or source Plasma data Chloride 98 - 107 mmoL/L Normal No Oct 11 [Moles/vo informati 2016 lume] in on in 10:03 AM Serum or source Plasma data Carbon 21.0 - mmoL/L Normal No Oct 11 dioxide, 32.0 informati 2016 total on in 10:03 AM [Moles/vo source lume] in data Serum or Plasma Creatinin 0.55 - mg/dL Normal No Oct 11 e 1.02 informati 2016 [Mass/vol on in 10:03 AM ume] in source Serum or data Plasma Estimated 59- ML/MIN No REFERENCE Oct 11 informati RANGE: 2017 glomerula on in >60 10:03 AM r source ML/MIN/1. filtratio data 73 SQUARE n rate METERSIf (GF this patient is -A merican, then multiply theresult by 1.210. Globulin 1.3 - 3.2 gm/dL Normal No Oct 11 [Mass/vol informati 2016 ume] in on in 10:03 AM Serum source data Glucose 74 - 106 mg/dL High No Oct 11 [Mass/vol informati 2016 ume] in on in 10:03 AM Serum or source Plasma data Potassium 3.5 - 5.1 mmoL/L High No Oct 11 inform2016 [Moles/vo on in 10:03 AM lume] in source Serum or data Plasma Sodium 136 - 145 mmoL/L Normal No Oct 11 [Moles/vo informati 2016 lume] in on in 10:03 AM Serum or source Plasma data Aspartate 15 - 37 U/L Low No Oct 11 inform2016 aminotran on in 10:03 AM sferase source [Enzymati data c activity/ volume] in Serum or Plasma Alanine 12 - 78 U/L Normal No Oct 11 aminotran informati 2016 sferase on in 10:03 AM [Enzymati source c data activity/ volume] in Serum or Plasma Protein 6.4 - 8.2 gm/dL Normal No Oct 11 [Mass/vol informati 2017 ume] in on in 10:03 AM Serum or source Plasma data Lipid 1996 panel in Serum or Plasma Observa Value Referen Units Interpr Notes Date tion ce etation Range Cholester < 200 mg/dL High No Oct 11 ol informati 2016 [Moles/vo on in 10:03 AM lume] in source Unspecifi data ed specimen Cholester 40 - 60 MG/DL High No Oct 11 ol in HDL inform2016 on in 10:03 AM [Mass/vol source ume] in data Serum or Plasma Cholester 0 - 130 mg/dL Normal No Oct 11 ol in LDL inform2016 on in 10:03 AM [Mass/vol source ume] in data Serum or Plasma by calculati on Triglycer 30 - 200 mg/dL High No Oct 11 prisca inform2016 [Moles/vo on in 10:03 AM lume] in source Serum or data Plasma Cholester 0 - 40 No High No Oct 11 ol in informati informati 2017 VLDL on in on in 10:03 AM [Mass/vol source source ume] in data data Serum or Plasma Thyrotropin [Units/volume] in Serum or Plasma Observa Value Referen Units Interpr Notes Date tion ce etation Range Thyrotrop 0.358 - uIU/ml No No Oct 11 in 3.740 informati inform2016 [Units/vo on in on in 10:03 AM lume] in source source Serum or data data Plasma Hemoglobin A1c in Blood Observa Value Referen Units Interpr Notes Date tion ce etation Range Hemoglo 6.5 0.0 - % Normal < 6% Oct 11 bin A1c 7.0 NON-FEDERICO 2017 in BETIC 10:03 Blood LEVEL< AM 7% CONTROL LED DIABETI C LEVEL> 8% POORLY CONTROL LED DIABETI C LEVEL INR in Blood by Coagulation assay Observa Value Referen Units Interpr Notes Date tion ce etation Range INR in 0.9 - 1.1 No High INDICATIO Oct 11 Blood by informati N 2017 Coagulati on in 10:03 AM on assay source INR data RANGETHER APY FOR DVT, PE, ATRIAL FIB; 2.0 - 3.0PROPHY LAXIS FOR VTETHERAP Y FOR MECHANICA L HEART 2.5 - 3.5VALVE; PREVENTIO N OF SYSTEMICE MBOLISM SECONDARY TO AMI Prothromb 9.4 - SECONDS High No Oct 11 in time 11.8 informati 2016 (PT) in on in 10:03 AM Platelet source poor data plasma by Coagulati on assay INR in Blood by Coagulation assay Observa Value Referen Units Interpr Notes Date tion ce etation Range INR in 0.9 - 1.1 No High Results Sep 20 Blood by informati sent to: 2016 Coagulati on in [place] 11:45 AM on assay source Ernesto PRICE data E. 09/20/16 1214BlanBaldemar vaz Pharmacis t recommend ation for Warfarint herapy is: PATIENT INR 2.6 TODAY VIA FINGERSTI CK.RECOMM ENDED PATIENT CONTINUE WITH CURRENT DOSE OF WARFARIN2 .5 MG ON MON/FRI; 3.75 MG ON SUN/TUE/W ED/JEMAL/SA T. WILLFOLLO W UP IN 5 WEEKS. *FOR DETAILED INFORMATI ON-PLEASE REVIEW PROGRESS NOTEI N THE ASSESSMEN TS AND ANTICOAGU LATION CLINIC SECTIONAN TICOAGULA TION CLINIC IN PCI/CLINI NIKOLE REVIEWIND ICATION INR RANGETHER APY FOR DVT, PE, ATRIAL FIB; 2.0 - 3.0PROPHY LAXIS FOR VTETHERAP Y FOR MECHANICA L HEART 2.5 - 3.5VALVE; PREVENTIO N OF SYSTEMICE MBOLISM SECONDARY TO AMI INR in Blood by Coagulation assay Observa Value Referen Units Interpr Notes Date tion ce etation Range INR in 0.9 - 1.1 No High Results September 09 Blood by informati sent to: 2016 Coagulati on in [place] 11:30 AM on assay source Ernesto PRICE data E. 09/09/16 1219Baldemar Lindsey Pharmacis t recommend ation for Warfarint herapy is: PATIENT INR 2.5 TODAY VIA FINGERSTI CK.RECOMM ENDED PATIENT CONTINUE WITH WARFARIN 2.5 MG MON/FRI;3 .75 MG ON SUN/TUE/W ED/JEMAL/SA T.FOR DETAILED INFORMATI ON-PLEASE REVIEW PROGRESS NOTEI N THE ASSESSMEN TS AND ANTICOAGU LATION CLINIC SECTIONAN TICOAGULA TION CLINIC IN PCI/CLINI NIKOLE REVIEWIND ICATION INR RANGETHER APY FOR DVT, PE, ATRIAL FIB; 2.0 - 3.0PROPHY LAXIS FOR VTETHERAP Y FOR MECHANICA L HEART 2.5 - 3.5VALVE; PREVENTIO N OF SYSTEMICE MBOLISM SECONDARY TO AMI
--- OUTSIDE RECORDS SUMMARY | 2017-03-08 11:14 | External Medical Summary Rpt ---
Author Author [employer] Address Unknown Phone Unavailable [...] informati sent to: 2016 Coagulati on in [place] 10:20 AM on assay source Ernesto PRICE [...] [facility] PM g enzyme source [Enzymati data [id number] c [address] activity/ Road, volume] [place], in Serum [place] or Plasma [id number] [employer]ump[employer] Driver: Chano Berrios PhD, Phone: [phone] Iron and TIBC Observa Value Referen [...] PM in Serum source or Plasma data [id number], [place], [place] [id number] [employer] Driver: Chano Berrios PhD, Phone: [phone] Comprehensive metabolic 2000 panel in Serum [...] data data creatPerf ormed at: - [facility] [place] [address] [address] [place] [id number] [employer] Driver: Chano Berrios PhD, Phone: [phone] Creatinin Not mg/dL No No Oct [...] informati sent to: 2016 Coagulati on in [place] 11:30 AM on assay source Ernesto PRICE [...]
[2017-03-08 11:32] LABS: HEMOGLOBIN 12.2 g/dL (12.2-16.2); LYMPH # 0.5 K/mm3 (0.7-4.5); LYMPH % 4.7 % (10-50.0)
[2017-03-08] MEDS ORDERED: MINOCYCLINE 10100 MG PO (11:34)
[2017-03-08] MEDS ORDERED: LASIX 20MG. TAB20 MG PO (11:36)
[2017-03-08] MEDS ORDERED: ADVAIR 10028 PUFF/IN IN (11:36)
[2017-03-08] MEDS ORDERED: RANITIDINE HCL150 MG PO (11:37)
--- NOTE | 2017-03-08 11:58 | RADIOLOGY REPORT PS360 ---
LOWER LEG-LT HISTORY: Pain ulcers and cellulitis ORDERING PHYSICIAN: Dianne Melendrez MD PATIENT AGE: 76 years COMPARISON: None FINDINGS: There is a total knee prosthesis present that was by 4 screws within the tibial component. At least one posterior screw projects slightly beyond the margin of the posterior tibial cortex. No acute fracture or dislocation. No bony lytic process evident. Subcutaneous lucency is noted on the leg laterally mid aspect consistent with ulceration. Scattered vascular calcifications are present. IMPRESSION: 1. No acute bony pathology. 2. Prior knee replacement. 3. Left mid leg soft tissue ulceration laterally
[2017-03-08 12:02] LABS: NEUTROPHILS 91 % (42-76)
--- NOTE | 2017-03-08 12:13 | RADIOLOGY REPORT PS360 ---
LOWER LEG-RT HISTORY: Pain and swelling cellulitis ORDERING PHYSICIAN: Dianne Melendrez MD PATIENT AGE: 76 years COMPARISON: None FINDINGS: No fracture or dislocation. No destructive process or significant degenerative change. There is generalized vascular calcification. No soft tissue gas. IMPRESSION: No acute finding
[2017-03-08 13:39] LABS: URINE BILIRUBIN - DIPSTICK NEGATIVE (NEG); URINE BLOOD NEGATIVE (NEG)
--- OUTSIDE RECORDS SUMMARY | 2017-03-08 13:49 | External Medical Summary Rpt | CCD ---
Author Author , MARYAN STEINBERG Address Unknown Phone [email or web address] Care Team Providers Care Regrinder Operator Name Role Phone Ernesto Lomeli MD, Unavailable Unavailable Ernesto Mancini MD, Unavailable Unavailable Karo Mancini MD Purpose Continuity of Care Document - 07-05-2012 through 2016 Problems Code Diagnosis DOS Provider Status 244.0 244.0 04-09-2013 [place] POSTSURGICA [facility] HYPOTHYROID 244.9 244.9 04-09-2013 [place] HYPOTHYROID [facility] IS NOS Hospital 272.4 272.4 04-09-2013 [place] HYPERLIPIDE [facility] NEC/NOS Hospital 401.9 401.9 04-09-2013 [place] HYPERTENSIO [facility] N [facility] Hospital 424.0 424.0 04-09-2013 [place] 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 493.90 493.90 04-09-2013 [place] ASTHMA, [facility] UNSPECIFIED Hospital 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 04-09-2013 [place] 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 715.90 715.90 04-09-2013 [place] OSTEOARTHRO [facility] S [facility] NOS-UNSPEC 784.7 784.7 04-09-2013 [place] EPISTAXIS [facility] V12.51 V12.51 04-09-2013 [place] HX-VENOUS [facility] THROMBOSIS& Hospital EMBOLISM V58.61 V58.61 04-09-2013 [place] ANTICOAGULA [facility] NTS,LT,[facility] ENT USE V58.69 V58.69 OTH 04-09-2013 [place] MED,LT,[facility]NT USE Hospital 356.9 356.9 IDIO 07-07-2012 [place] PERIPH [facility] NEURPTHY [facility] NOS 435.9 435.9 TRANS 07-07-2012 [place] CEREB [facility] ISCHEMIA Hospital NOS 496 496 [facility] 07-07-2012 [place] AIRWAY [facility] OBSTRUCT [facility] NEC 573.3 573.3 07-07-2012 [place] HEPATITIS [facility] NOS Hospital 625.6 625.6 FEM 07-07-2012 [place] STRESS [facility] INCONTINENC [facility] E 729.81 729.81 07-07-2012 [place] SWELLING OF [facility] 599.0 599.71 786.05 V58.81 Allergies, Adverse [...] 00 12 0 No TA 40 -2 OH 99 2- Lo N 15 20 ng [...] TH 74 -2 YL 60 2- Lo MT 00 20 ng ED 10 13 er [...] TH 74 -2 YL 60 1- Lo MT 00 20 ng ED 10 13 er [...] Ac ti MG ve TA BL ET MT 51 03 2 No AV 07 -2 [...] Order Detail nces retati t Range on Differential panel, method unspecified - (03-08-2017 11:17) LYMPH 3 % 10% - Low complet 017 50% ed 11:17 Platele NORMAL complet ts 017 ed [Presen 11:17 ce] in Blood by Light microsc opy Erythro NORMAL complet cyte 017 ed morphol 11:17 ogy finding [Identi fier] in Blood Whole blood INR measurement (03-07-2017 11:30) Whole = 2.4 0.9-1.1 complet blood 017 ed INR 11:30 measure ment Comment: Comment: Results sent to: Ernesto Lomeli MD 03/07/17 [id number] Comment: Titus Forrester Pharmacist recommendation for Warfarin Comment: therapy is: PATIENT INR 2.4 TODAY VIA FINGERSTICK. Comment: RECOMMENDED PATIENT CONTINUE WITH WARFARIN 2.5 MG ON Comment: MON/WED/FRI; 3.75 MG ON SUN/TUE/JEMAL/SAT. 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 WILL Comment: FOLLOW CLOSELY UNTIL OFF OF THE ABX. Comment: Comment: FOR DETAILED INFORMATION-PLEASE REVIEW PROGRESS [...] AMI CBC w auto diff (02-28-2017 10:37) Blood = 223 142-424 complet platele 017 K/mm3 ed t count 10:37 Red = 3.47 4.2-5.4 complet blood 017 M/mm3 ed cell 10:37 count Automat = 13.9 11.5-17 complet ed 017 % .5 ed erythro 10:37 cyte distrib ution width Blood = 7.9 4.8-10. complet leukocy 017 K/MM3 8 ed bala 10:37 count (number /volume ) Automat = 0.0 0-0.2 complet ed 017 K/MM3 ed blood 10:37 basophi l count (count/ vo Baso % = 0.2 % 0.1-2.0 complet 017 ed 10:37 Automat = 0.1 0.0-0.4 complet ed 017 K/mm3 ed blood 10:37 eosinop hil count Automat = 1.1 % 0.1-12. complet ed 017 0 ed blood 10:37 eosinop hils/10 0 leukocy t Blood = 6.3 1.8-7.8 complet granulo 017 K/mm3 ed cytes 10:37 automat ed count (numb Granulo = 80.5 37.0-80 complet cyte 017 % .0 ed percent 10:37 age Blood = 34.5 37.0-47 complet hematoc 017 % .0 ed rit 10:37 (volume fractio n) Blood = 11.4 12.2-16 complet hemoglo 017 g/dL .2 ed bin 10:37 measure ment (mass/v olum Absolut = 1.0 0.7-4.5 complet e 017 K/mm3 ed lymphoc 10:37 yte count Lymphoc = 12.0 10-50.0 complet yte 017 % ed count, 10:37 blood, automat ed Mean = 32.9 27-31.2 complet corpusc 017 pg ed ular 10:37 hemoglo bin (MCH) determ Automat = 33.1 31.8-35 complet ed 017 g/dl .4 ed erythro 10:37 cyte mean corpusc ular h Automat = 99.3 82.2-97 complet ed 017 fl .8 ed erythro 10:37 cyte mean corpusc ular v Absolut = 0.5 0.1-1.0 complet e 017 K/mm3 ed monocyt 10:37 e count [place] % = 6.2 % 1.7-9.3 complet 017 ed 10:37 Automat = 7.9 7.4-10. complet ed 017 fl 4 ed blood 10:37 platele t mean volume laura Whole blood INR measurement (02-28-2017 10:37) Whole = 2.03 0.9-1.1 complet blood 017 ed INR 10:37 measure ment Comment: INDICATION INR RANGE Comment: Comment: THERAPY FOR DVT, PE, ATRIAL FIB; 2.0 - 3.0 Comment: PROPHYLAXIS FOR VTE Comment: Comment: THERAPY FOR MECHANICAL HEART 2.5 - 3.5 Comment: VALVE; PREVENTION OF SYSTEMIC Comment: EMBOLISM SECONDARY TO AMI Prothro = 22.1 9.4-11. complet mbin 017 SECONDS 8 ed time 10:37 (PT) in platele t poor p Ammonia measurement (02-28-2017 10:37) Ammonia = 12 19-54 complet 017 umoL/L ed measure 10:37 ment Comprehensive metabolic panel (02-28-2017 10:37) Serum = 1.0 1.1-1.8 complet or 017 ed plasma 10:37 albumin /globul in mass ra Serum = 2.8 3.4-5.0 complet or 017 gm/dL ed plasma 10:37 albumin measure ment (mas Serum = 118 46-116 complet or 017 U/L ed plasma 10:37 alkalin e phospha tase laura Serum 2 = 0.5 0.2-1.0 complet or 017 mg/dL ed plasma 10:37 total bilirub in measure m Serum 02-28-2 = 29 7-18 complet or 017 mg/dL ed plasma 10:37 urea nitroge n measure men Serum 02-28-2 = 9.0 8.5-10. complet or 017 mg/dL 1 ed plasma 10:37 calcium measure ment (mas Serum 2 = 102 98-107 complet or 017 mmoL/L ed plasma 10:37 chlorid e measure ment (mo Carbon = 27 21.0-32 complet dioxide 017 mmoL/L .0 ed 10:37 measure ment Serum 2 = 1.1 0.55-1. complet or 017 mg/dL 02 ed plasma 10:37 creatin ine measure ment ( Estimat = 48 59- complet ed 017 ML/MIN ed glomeru 10:37 lar filtrat ion rate (GF Comment: REFERENCE RANGE: >60 ML/MIN/1.73 SQUARE METERS Comment: If this patient is -Finn[place], then multiply the Comment: result by 1.210. Serum = 2.8 1.3-3.2 complet globuli 017 gm/dL ed n 10:37 measure ment (mass/v olume) Serum = 147 74-106 complet or 017 mg/dL ed plasma 10:37 glucose measure ment (mas Serum = 4.7 3.5-5.1 complet potassi 017 mmoL/L ed um 10:37 measure ment Serum = 141 136-145 complet sodium 017 mmoL/L ed measure 10:37 ment Serum = 21 15-37 complet or 017 U/L ed plasma 10:37 asparta te aminotr ansfera ALT = 45 12-78 complet (SGPT) 017 U/L ed ser/scotty 10:37 s Protein = 5.6 6.4-8.2 complet total 017 gm/dL ed ser/scotty 10:37 s Gram negative automated antibiotic susceptibility test (02-28-2017 08:16) Clindam 11-13-2 <= 0.25 complet ycin 017 ug/ml ed suscept 08:16 ibility test by minimum inhibit ory concent ration Erythro 11-13-2 = 0.5 complet mycin 017 ug/ml ed suscept 08:16 ibility test by minimum inhibit ory concent ration Gentami 11-13-2 <= 0.5 complet lexie 017 ug/ml ed suscept 08:16 ibility test by minimum inhibit ory concent ration Levoflo 11-13-2 <= 0.12 complet xacin 017 ug/ml ed suscept 08:16 ibility test by minimum inhibit ory concent ration Oxacill 11-13-2 >= 4 complet in 017 ug/ml ed suscept 08:16 ibility test by minimum inhibit ory concent ration Penicil 11-13-2 >= 0.5 complet maxime G 017 ug/ml ed suscept 08:16 ibility test by minimum inhibit ory concent ration Rifampi 11-13-2 <= 0.5 complet n 017 ug/ml ed suscept 08:16 ibility test by minimum inhibit ory concent ration Trimeth 11-13-2 <= 10 complet oprim/s 017 ug/ml ed ulfamet 08:16 hoxazol e suscept ibility test by minimum inhibit ory concent ration Tetracy 11-13-2 <= 1 complet samaniego 017 ug/ml ed suscept 08:16 ibility test by minimum inhibit ory concent ration Vancomy 11-13-2 <= 0.5 complet lexie 017 ug/ml ed suscept 08:16 ibility test by minimum inhibit ory concent ration Whole blood INR measurement (02-25-2017 11:58) Whole = 1.47 0.9-1.1 complet blood 017 ed INR 11:58 measure ment Comment: INDICATION INR RANGE Comment: Comment: THERAPY FOR DVT, PE, ATRIAL FIB; 2.0 - 3.0 Comment: PROPHYLAXIS FOR VTE Comment: Comment: THERAPY FOR MECHANICAL HEART 2.5 - 3.5 Comment: VALVE; PREVENTION OF SYSTEMIC Comment: EMBOLISM SECONDARY TO AMI Prothro = 15.9 9.4-11. complet mbin 017 SECONDS 8 ed time 11:58 (PT) in platele t poor p Basic metabolic panel (02-25-2017 11:58) Serum 2 = 21 7-18 complet or 017 mg/dL ed plasma 11:58 urea nitroge n measure men Serum = 9.0 8.5-10. complet or 017 mg/dL 1 ed plasma 11:58 calcium measure ment (mas Serum = 103 98-107 complet or 017 mmoL/L ed plasma 11:58 chlorid e measure ment (mo Carbon = 30 21.0-32 complet dioxide 017 mmoL/L .0 ed 11:58 measure ment Serum 2 = 0.9 0.55-1. complet or 017 mg/dL 02 ed plasma 11:58 creatin ine measure ment ( Estimat = 61 59- complet ed 017 ML/MIN ed glomeru 11:58 lar filtrat ion rate (GF Comment: REFERENCE RANGE: >60 ML/MIN/1.73 SQUARE METERS Comment: If this patient is -Finnish, then multiply the Comment: result by 1.210. Serum = 165 74-106 complet or 017 mg/dL ed plasma 11:58 glucose measure ment (mas Serum = 4.7 3.5-5.1 complet potassi 017 mmoL/L ed um 11:58 measure ment Serum = 138 136-145 complet sodium 017 mmoL/L ed measure 11:58 ment CBC w auto diff (02-25-2017 11:58) Automat = 0.0 0-0.2 complet ed 017 K/MM3 ed blood 11:58 basophi l count (count/ vo Baso % = 0.1 % 0.1-2.0 complet 017 ed 11:58 Automat = 0.0 0.0-0.4 complet ed 017 K/mm3 ed blood 11:58 eosinop hil count Automat = 0.2 % 0.1-12. complet ed 017 0 ed blood 11:58 eosinop hils/10 0 leukocy t Blood = 10.8 1.8-7.8 complet granulo 017 K/mm3 ed cytes 11:58 automat ed count (numb Granulo = 88.7 37.0-80 complet cyte 017 % .0 ed percent 11:58 age Blood = 34.0 37.0-47 complet hematoc 017 % .0 ed rit 11:58 (volume fractio n) Blood = 11.1 12.2-16 complet hemoglo 017 g/dL .2 ed bin 11:58 measure ment (mass/v olum Absolut = 0.9 0.7-4.5 complet e 017 K/mm3 ed lymphoc 11:58 yte count Lymphoc = 7.4 % 10-50.0 complet yte 017 ed count, 11:58 blood, automat ed Mean = 32.3 27-31.2 complet corpusc 017 pg ed ular 11:58 hemoglo bin (MCH) determ Automat = 32.7 31.8-35 complet ed 017 g/dl .4 ed erythro 11:58 cyte mean corpusc ular h Automat = 98.8 82.2-97 complet ed 017 fl .8 ed erythro 11:58 cyte mean corpusc ular v Absolut = 0.4 0.1-1.0 complet e 017 K/mm3 ed monocyt 11:58 e count [place] % = 3.7 % 1.7-9.3 complet 017 ed 11:58 Automat = 8.3 7.4-10. complet ed 017 fl 4 ed blood 11:58 platele t mean volume laura Blood = 185 142-424 complet platele 017 K/mm3 ed t count 11:58 Red = 3.44 4.2-5.4 complet blood 017 M/mm3 ed cell 11:58 count Automat = 13.9 11.5-17 complet ed 017 % .5 ed erythro 11:58 cyte distrib ution width Blood = 12.1 4.8-10. complet leukocy 017 K/MM3 8 ed bala 11:58 count (number /volume ) Differential panel, method unspecified - (02-25-2017 11:58) Automat = 9 % 0-8 complet ed 017 ed blood 11:58 band neutrop hil percent a LYMPH 11-10-2 4 % 10-50 complet 017 ed 11:58 Monocyt 11-10-2 = 2 % 2-9 complet e % 017 ed 11:58 Platele 11-10-2 NORMAL complet t 017 NORMAL ed estimat 11:58 L e Neutrop 11-10-2 = 85 % 42-76 complet hil 017 ed count 11:58 Blood 1110-2 = 100 complet total 017 #CELLS ed cell 11:58 count Differential panel, method unspecified - (02-25-2017 11:58) LYMPH 11-10-2 4 % 10% - Low complet 017 50% ed 11:58 Platele 11-10-2 NORMAL complet ts 017 ed [Presen 11:58 ce] in Blood by Light microsc opy Bacterial body fluid culture (02-25-2017) Bacteri 02-25- GRAM complet al body 017 STAIN- ed fluid culture Bacteri MODERAT complet al body 017 E GRAM ed fluid POSITIV culture E COCCI Bacteri 02-25- <10 complet al body 017 EPI'S ed fluid culture Bacteri 02-25-2 <10 complet al body 017 WBCS ed fluid culture Bacteri [id number] complet al body 017 ed fluid Staphyl culture ococcus aureus SCT SAUR STAPHYL OCOCCUS AUREUS L Whole blood INR measurement (02-14-2017 10:20) Whole 02-14-2 = 2.4 0.9-1.1 complet blood 017 ed INR 10:20 measure ment Comment: Comment: Results sent to: Ernesto Lomeli MD 02/14/17 1036 Comment: Titus Forrester Pharmacist recommendation for Warfarin [...] Cnc BASIC METABOLIC PANEL (04-07-2013 06:15) Glucose 98 74-106 complet 013 mg/dL ed Bld-mCn [...] 013 mmoL/L .0 ed Cnc 06:15 Calcium 04-07- 7.8 8.5-10. complet 013 mg/dL 1 ed SerPl-m 06:15 Cnc CBC with AUTO DIFF (04-07-2013 06:15) WBC # 04-07-2 6.5 4.8-10. complet Bld 013 K/MM3 8 ed Auto 06:15 RBC # 04-07-2 3.86 4.2-5.4 complet Bld 013 M/mm3 ed Auto 06:15 Hgb 04-07- 12.4 12.2-16 complet Bld-mCn 013 g/dL .2 ed c 06:15 Hct Fr 36.3 % 37.0-47 complet Bld 013 .0 ed 06:15 MCV RBC 93.9 fl 82.2-97 complet 013 .8 ed 06:15 MCH RBC 32.0 pg 27-31.2 complet Qn 013 ed Auto 06:15 MEAN 04-07- 34.1 31.8-35 complet CORPUSC 013 g/dl .4 ed ULAR 06:15 HGB CONC RDW RBC 04-07- 15.1 % 11.5-17 complet Auto 013 .5 ed 06:15 Platele 04-07- 191 142-424 complet t Bld 013 K/mm3 ed Ql 06:15 Manual MEAN 7.3 fl 7.4-10. complet PLATELE 013 4 ed T 06:15 VOLUME Granulo 57.4 % 37.0-80 complet cytes 013 .0 ed Fr Bld 06:15 Auto LYMPH % 04-07-2 34.4 % 10-50.0 complet 013 ed 06:15 Monocyt 04-07- 5.8 % 1.7-9.3 complet es Fr 013 ed Bld 06:15 Auto Eosinop 04-07-2 2.1 % 0.1-12. complet hil Fr 013 0 ed Bld 06:15 Auto Basophi 04-07-2 0.2 % 0.1-2.0 complet ls Fr 013 ed Bld 06:15 Auto Granulo 3.7 1.8-7.8 complet cytes # 013 K/mm3 ed Bld 06:15 Auto Lymphoc 04-07-2 2.2 0.7-4.5 complet ytes Fr 013 K/mm3 ed Bld 06:15 Auto Monocyt 04-07-2 0.4 0.1-1.0 complet es # 013 K/mm3 ed Bld 06:15 Auto Eosinop 04-07- 0.1 0.0-0.4 complet hil # 013 K/mm3 ed Bld 06:15 Auto Basophi 04-07-2 0.0 0-0.2 complet ls # 013 K/MM3 [...] SerPl-s 013 mmoL/L ed Cnc 23:30 Potassi 4.1 3.5-5.1 complet um 013 mmoL/L ed SerPl-s 23:30 Cnc Chlorid 105 98-107 complet e 013 mmoL/L ed SerPl-s 23:30 Cnc CO2 29 21.0-32 complet SerPl-s 013 mmoL/L .0 ed Cnc 23:30 Calcium 8.2 8.5-10. complet 013 mg/dL 1 ed SerPl-m 23:30 Cnc CBC with AUTO DIFF (04-06-2013 23:30) WBC # 20-2 7.7 4.8-10. complet Bld 013 K/MM3 8 ed Auto 23:30 RBC # 12-20-2 4.34 4.2-5.4 complet Bld 013 M/mm3 ed Auto 23:30 Hgb 12-20-2 13.5 12.2-16 complet Bld-mCn 013 g/dL .2 ed c 23:30 Hct Fr 12-20-2 40.1 % 37.0-47 complet Bld 013 .0 ed 23:30 MCV RBC 12-20-2 92.6 fl 82.2-97 complet 013 .8 ed 23:30 MCH RBC 12-20-2 31.1 pg 27-31.2 complet Qn 013 ed Auto 23:30 MEAN 12-20-2 33.6 31.8-35 complet CORPUSC 013 g/dl .4 ed ULAR 23:30 HGB CONC RDW RBC 12-20-2 14.9 % 11.5-17 complet Auto 013 .5 ed 23:30 Platele 12-20-2 226 142-424 complet t Bld 013 K/mm3 ed Ql 23:30 Manual MEAN -20-2 7.2 fl 7.4-10. complet PLATELE 013 4 ed T 23:30 VOLUME Granulo 12-20-2 60.1 % 37.0-80 complet cytes 013 .0 ed Fr Bld 23:30 Auto LYMPH % 12-20-2 30.7 % 10-50.0 complet 013 ed 23:30 Monocyt 12-20-2 7.0 % 1.7-9.3 complet es Fr 013 ed Bld 23:30 Auto Eosinop 12-20-2 1.9 % 0.1-12. complet hil Fr 013 [...] 013 K/mm3 ed Bld 23:30 Auto Basophi 04-06- 0.0 0-0.2 complet ls # 013 K/MM3 ed Bld 23:30 Auto PROTIME/INR (04-06-2013 20:50) PROTHRO -20-2 19.9 9.9-11. complet MBIN 013 SECONDS 6 ed TIME 20:50 INR Bld 04-06- 1.85 0.9-1.1 complet 013 UNK ed 20:50 INR BldC (04-06-2013 11:00) INR 04-06-2 2.0 UNK 0.9-1.1 complet BldC 013 ed 11:00 PROTIME/INR (02-04-2013 15:00) PROTHRO 02-04-2 19.7 9.9-11. complet MBIN 013 SECONDS 6 ed TIME 15:00 INR Bld 02-04-2 1.83 0.9-1.1 complet 013 UNK ed 15:00 URINALYSIS/COMPLETE (02-04-2013 14:00) URINE -20-2 DARK YELLOW complet COLOR 013 YELLOW ed 14:00 URINE -20-2 Cloudy CLEAR complet APPEARA 013 ed NCE 14:00 URINE 20-2 NEGATIV NEG complet GLUCOSE 013 E ed - 14:00 DIPSTIC K URINE 20-2 NEGATIV NEG complet BILIRUB 013 E ed IN - 14:00 DIPSTIC K URINE 10-20-2 TRACE NEG complet KETONE 013 mg/dL ed 14:00 URINE -20-2 Greater 1.005-1 complet SPECIFI 013 than .030 ed C 14:00 or GRAVITY equal to 1.030 URINE 20-2 3+ NEG complet BLOOD 013 ed 14:00 URINE 10-20-2 6.0 UNK 5.0-8.5 complet PH 013 ed 14:00 URINE 10-20-2 1+ NEG complet PROTEIN 013 mg/dL ed - 14:00 DIPSTIC K URINE 10-20-2 0.2 NEG complet UROBILI 013 E.U./dL ed NOGEN - 14:00 DIPSTIC K URINE -20-2 NEGATIV NEG complet NITRATE 013 E ed - 14:00 DIPSTIC K URINE 10-20-2 2+ NEG complet LEUK 013 ed ESTERAS 14:00 E URINE 20-2 TNTC 0 complet RBC 013 rbc/hpf ed 14:00 URINE 02-04-2 50-100 O complet WBC 013 wbc/hpf ed 14:00 URINE 20-2 2+ O complet BACTERI 013 ed A [...] (ESTIMA 013 ML/MIN ed DWAYNE) 10:00 Sodium 141 136-145 complet SerPl-s 013 mmoL/L ed Cnc 10:00 Potassi 3.7 3.5-5.1 complet um 013 mmoL/L ed SerPl-s 10:00 Cnc Chlorid 102 98-107 complet e 013 mmoL/L ed SerPl-s 10:00 Cnc CO2 30 21.0-32 complet SerPl-s 013 mmoL/L .0 ed Cnc 10:00 Calcium 8.8 8.5-10. complet 013 mg/dL 1 ed SerPl-m 10:00 Cnc PROTIME/INR (07-07-2012 10:00) PROTHRO 07-07- 15.2 9.8-11. complet MBIN 013 SECONDS 0 ed TIME 10:00 INR Bld 1.47 0.9-1.1 complet 013 UNK ed 10:00 LIPID PROFILE (07-06-2012 06:10) Cholest 166 Less complet 013 mg/dL than ed SerPl-m 06:10 200 Cnc HDLc 67.0 40-60 complet SerPl-m 013 MG/DL ed Cnc 06:10 LDLc 07-06- 80.2 0-130 complet SerPl 013 mg/dL ed Calc-mC 06:10 nc VLDL 18.8 0-40 complet CHOLEST 013 UNK ed REBECCA 06:10 Trigl 07-06-2 94 30-200 complet SerPl-m 013 mg/dL ed Cnc 06:10 PROTIME/INR (07-06-2012 06:10) PROTHRO 07-06-2 14.2 9.8-11. complet MBIN 013 SECONDS 0 ed TIME 06:10 INR Bld 1.37 0.9-1.1 complet 013 UNK ed 06:10 URINALYSIS/COMPLETE (07-05-2012 15:12) URINE 07-05- YELLOW YELLOW complet COLOR 013 ed 15:12 URINE 07-05- CLEAR CLEAR complet APPEARA 013 ed NCE 15:12 URINE 07-05- NEGATIV NEG complet GLUCOSE 013 E ed [...] mg/dL ed - 15:12 DIPSTIC K URINE 07-05-2 0.2 NEG complet UROBILI 013 E.U./dL ed NOGEN - 15:12 DIPSTIC K URINE 20-2 NEGATIV NEG complet NITRATE 013 E ed - 15:12 DIPSTIC K URINE 20-2 NEGATIV NEG complet LEUK 013 E ed ESTERAS 15:12 E URINE 07-05-2 3-5 0-5 complet SQUAMOU 013 #/hpf ed S CELLS 15:12 URINE 07-05-2 TRACE O complet BACTERI 013 ed A 15:12 PROTIME/INR (07-05-2012 14:17) PROTHRO 07-05-2 14.0 9.8-11. complet MBIN 013 SECONDS 0 ed TIME 14:17 INR Bld 07-05-2 1.35 0.9-1.1 complet 013 UNK ed 14:17 COMPREHENSIVE METABOLIC PANEL (07-05-2012 13:50) Glucose 20-2 148 74-106 complet 013 mg/dL ed Bld-mCn 13:50 c BUN 20-2 15 7-18 complet Bld-mCn 013 mg/dL ed c 13:50 Creat 20-2 0.7 0.6-1.0 complet SerPl-m 013 mg/dL ed Cnc 13:50 GFR 20-2 82 59- complet (ESTIMA 013 ML/MIN ed DWAYNE) 13:50 Sodium 07-05-2 141 136-145 complet SerPl-s 013 mmoL/L ed Cnc 13:50 Potassi 07-05-2 4.0 3.5-5.1 complet um 013 mmoL/L ed SerPl-s 13:50 Cnc Chlorid 07-05-2 107 98-107 complet e 013 mmoL/L ed SerPl-s 13:50 Cnc CO2 07-05-2 28 21.0-32 complet SerPl-s 013 mmoL/L .0 ed Cnc 13:50 Calcium 07-05-2 8.8 8.5-10. complet 013 mg/dL 1 ed SerPl-m 13:50 Cnc Prot 20-2 6.1 6.4-8.2 complet SerPl-m 013 gm/dL ed Cnc 13:50 Albumin 07-05-2 3.2 3.4-5.0 complet 013 gm/dL ed SerPl-m 13:50 Cnc Globuli 07-05-2 2.9 1.3-3.2 complet n 013 gm/dL ed Ser-mCn 13:50 c Albumin 07-05-2 1.1 UNK 1.1-1.8 complet /Glob 013 ed SerPl-m 13:50 Rto Bilirub 07-05-2 0.6 0.2-1.0 complet 013 mg/dL ed SerPl-m 13:50 Cnc AST 20-2 32 U/L 15-37 complet SerPl-c 013 ed Cnc 13:50 ALT 07-05-2 58 U/L 30-65 complet SerPl-c 013 ed Cnc 13:50 ALP 07-05-2 165 U/L 50-136 complet SerPl-c 013 ed Cnc 13:50 CBC with AUTO DIFF (07-05-2012 13:50) WBC # 03-20-2 6.4 4.8-10. complet Bld 013 K/MM3 8 ed Auto 13:50 RBC # 03-20-2 4.25 4.2-5.4 complet Bld 013 M/mm3 ed Auto 13:50 Hgb 03-20-2 13.6 12.2-16 complet Bld-mCn 013 g/dL .2 ed c 13:50 Hct Fr 03-20-2 41.4 % 37.0-47 complet Bld 013 .0 ed 13:50 MCV RBC 03-20-2 97.3 fl 82.2-97 complet 013 .8 ed 13:50 MCH RBC 03-20-2 32.1 pg 27-31.2 complet Qn 013 ed Auto 13:50 MEAN 03-20-2 33.0 31.8-35 complet CORPUSC 013 g/dl .4 ed ULAR 13:50 HGB CONC RDW RBC -20-2 14.3 % 11.5-17 complet Auto 013 .5 ed 13:50 Platele 03-20-2 225 142-424 complet t Bld 013 K/mm3 ed Ql 13:50 Manual MEAN -20-2 8.1 fl 7.4-10. complet PLATELE 013 4 ed T 13:50 VOLUME Granulo 03-20-2 68.2 % 37.0-80 complet cytes 013 .0 ed Fr Bld 13:50 Auto LYMPH % 03-20-2 21.8 % 10-50.0 complet 013 ed 13:50 [...] 013 K/mm3 ed Bld 13:50 Auto Eosinop 20-2 0.2 0.0-0.4 complet hil # 013 K/mm3 ed Bld 13:50 Auto Basophi 20-2 0.0 0-0.2 complet ls # 013 K/MM3 ed Bld 13:50 Auto Procedures Procedure DOS Code Location Performer Comment ANT NASAL 21.01 Karo Mancini MD EPIST Encounters Encounter Start End Date Code Location Performer Type Date Inpatient REYNALDO Lomeli MD ([place]) 3 20:00 3 19:22 [facility] DOROTEO Sharma (ER) 3 14:42 3 15:55 [facility] Inpatient REYNALDO COLON MD ([place]) 3 14:05 3 18:45 [facility]
--- OUTSIDE RECORDS SUMMARY | 2017-03-08 13:49 | External Medical Summary Rpt | CCD ---
Author Author , MARYAN STEINBERG Address Unknown Phone Care Team Providers Care Branch Banker Name Role Phone Ernesto Lomeli MD, Unavailable Unavailable Ernesto Mancini MD, Unavailable Unavailable Karo Mancini MD Purpose Continuity of Care Document - 07-05-2012 through 2016 Problems Code Diagnosis DOS Provider Status 244.0 244.0 04-09-2013 [place] POSTSURGICA [facility] HYPOTHYROID 244.9 244.9 04-09-2013 [place] HYPOTHYROID [facility] IS NOS Hospital 272.4 272.4 04-09-2013 [place] HYPERLIPIDE [facility] NEC/NOS Hospital 401.9 401.9 04-09-2013 [place] HYPERTENSIO [facility] N [facility] Hospital 424.0 424.0 04-09-2013 [place] 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 493.90 493.90 04-09-2013 [place] ASTHMA, [facility] UNSPECIFIED Hospital 564.1 564.1 04-09-2013 [place] IRRITABLE [facility] 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 715.90 715.90 04-09-2013 [place] OSTEOARTHRO [facility] S [facility] NOS-UNSPEC 784.7 784.7 04-09-2013 [place] EPISTAXIS [facility] V12.51 V12.51 04-09-2013 [place] HX-VENOUS [facility] THROMBOSIS& Hospital EMBOLISM V58.61 V58.61 04-09-2013 [place] ANTICOAGULA [facility] NTS,LT,[facility] ENT USE V58.69 V58.69 OTH 04-09-2013 [place] MED,LT,[facility] ENT USE Hospital 356.9 356.9 IDIO 07-07-2012 [place] PERIPH [facility] NEURPTHY [facility] NOS 435.9 435.9 TRANS 07-07-2012 [place] CEREB [facility] ISCHEMIA Hospital NOS 496 496 [facility] 07-07-2012 [place] AIRWAY [facility] OBSTRUCT [facility] NEC 573.3 573.3 07-07-2012 [place] HEPATITIS [facility] NOS Hospital 625.6 625.6 FEM 07-07-2012 [place] STRESS [facility] INCONTINENC [facility] E 729.81 729.81 07-07-2012 [place] SWELLING OF [facility] 599.0 599.71 786.05 V58.81 Allergies, Adverse [...] 00 12 0 No TA 40 -2 OR 99 2- Lo N 15 20 ng [...] TH 74 -2 YL 60 2- Lo [place] 00 20 ng ED 10 13 er [...] TH 74 -2 YL 60 1- Lo [place] 00 20 ng ED 10 13 er [...] Ac ti MG ve TA BL ET [place] 51 03 2 No AV 07 -2 [...] Results sent to: Ernesto Lomeli MD 03/07/17 [id number] Comment: Titus Forrester Pharmacist recommendation for Warfarin [...] 017 K/mm3 ed monocyt 10:37 e count [place] % = 6.2 % 1.7-9.3 complet 017 [...] SQUARE METERS Comment: If this patient is -Citizen Of [place], then multiply the Comment: result by 1.210. [...] SQUARE METERS Comment: If this patient is -Citizen Of [place], then multiply the Comment: result by 1.210. [...] 017 K/mm3 ed monocyt 11:58 e count [place] % = 3.7 % 1.7-9.3 complet 017 [...] body 017 WBCS ed fluid culture Bacteri [id number] complet al body 017 ed fluid Staphyl [...] Lomeli MD (IN) 3 20:00 3 19:22 [facility] Emergency DOROTEO Sharma (ER) 3 14:42 3 15:55 [facility] Inpatient REYNALDO COLON MD (IN) 3 14:05 3 18:45 [facility]
--- OUTSIDE RECORDS SUMMARY | 2017-03-08 13:50 | External Medical Summary Rpt | CCD ---
Demographics Preferred Language Lithuanian Marital Status Unknown Restorationism Affiliation Unknown Race Unknown Ethnic Group Unknown Author Author MARYAN Address Unknown Phone Immunization No patient found.
--- OUTSIDE RECORDS SUMMARY | 2017-03-08 13:50 | External Medical Summary Rpt | CCD ---
Demographics Preferred Language Tajik Marital Status Unknown Scientology Affiliation Unknown Race Unknown Ethnic Group Unknown Author Author MARYAN Address Unknown Phone Immunization No patient found.
--- OUTSIDE RECORDS SUMMARY | 2017-03-08 13:52 | External Medical Summary Rpt ---
Author Author MARYAN Gutierrez, MARYAN [employer] Organization [facility] [employer] Address Unknown Phone Unavailable Results CBC W Auto Differential panel in Blood Observa Value Referen Units Interpr Notes Date tion ce etation Range Basophils 0 - 0.2 K/MM3 Normal No Mar 08 inform2016 [#/volume on in 11:17 AM ] in source Blood by data Automated count Basophils 0.1 - 2.0 % Normal No Mar 08 /2016 leukocyte on in 11:17 AM s in source Blood by data Automated count Eosinophi 0.0 - 0.4 K/mm3 Normal Mar 08 ls inform2016 [#/volume on in 11:17 AM ] in source Blood by data Automated count Eosinophi 0.1 - % Normal Mar 08 ls/100 12.0 inform2016 leukocyte on in 11:17 AM s in source Blood by data Automated count Granulocy 1.8 - 7.8 K/mm3 High Mar 08 bala 2016 [#/volume on in 11:17 AM ] in source Blood by data Automated count Granulocy 37.0 - % High Mar 08 bala/100 80.0 2016 leukocyte on in 11:17 AM s in source Blood by data Automated count Hematocri 37.0 - % Low Mar 08 t [Volume 47.0 ati 2016 on in 11:17 AM Fraction] source of Blood data Hemoglobi 12.2 - g/dL Normal Mar 08 n 16.2 2016 [Mass/vol on in 11:17 AM ume] in source Blood data Lymphocyt 0.7 - 4.5 K/mm3 Low Mar 08 es 2016 [#/volume on in 11:17 AM ] in source Unspecifi data ed specimen by Automated count Lymphocyt 10 - 50.0 % Low Mar 08 es inform2016 [#/volume on in 11:17 AM ] in source Unspecifi data ed specimen by Automated count Erythrocy 27 - 31.2 pg High No Mar 08 te mean 2016 corpuscul on in 11:17 AM ar source hemoglobi data n [Entitic mass] Erythrocy 31.8 - g/dl Normal No Mar 08 te mean 35.4 2016 corpuscul on in 11:17 AM ar source hemoglobi data n concentra tion [Mass/vol ume] by Automated count Erythrocy 82.2 - fl Normal No Mar 08 te mean 97.8 2016 corpuscul on in 11:17 AM ar volume source [Entitic data volume] by Automated count Monocytes 0.1 - 1.0 K/mm3 Normal No Mar 082016 [#/volume on in 11:17 AM ] in source Blood by data Automated count Monocytes 1.7 - 9.3 % Normal No Mar 082016 leukocyte on in 11:17 AM s in source Blood by data Automated count Platelet 7.4 - fl Normal Mar 08 mean 10.4 2016 volume on in 11:17 AM [Entitic source volume] data in Blood by Automated count Platelets 142 - 424 K/mm3 Normal No Mar 082016 [#/volume on in 11:17 AM ] in source Blood data Erythrocy 4.2 - 5.4 M/mm3 Low No Mar 08 bala 2016 [#/volume on in 11:17 AM ] in source Amniotic data fluid Erythrocy 11.5 - % Normal Mar 08 te 17.5 2016 distribut on in 11:17 AM ion width source [Entitic data volume] by Automated count Leukocyte 4.8 - K/MM3 Normal No Mar 08 s 10.8 2016 [#/volume on in 11:17 AM ] in source Blood data Differential panel, method unspecified - Observa Value Referen Units Interpr Notes Date tion ce etation Range Eosinophi 0 - 3 % Normal No Mar 08 ls/100 2016 leukocyte on in 11:17 AM s in source Blood by data Manual count LYMPH 3 10 - 50 % Low Mar 082016 tion in 11:17 source AM data Monocytes 2 - 9 % Normal No Mar 082016 leukocyte on in 11:17 AM s in source Blood by data Automated count Platele NORMAL No No No No Mar 08 ts informa informa informa inform2016 [Presen tion in tion in tion in tion in 11:17 ce] in source source source source AM Blood data data data data by Light microsc opy Neutrophi 42 - 76 % High No Mar 08 ls informati 2016 [#/volume on in 11:17 AM ] in source Blood by data Automated count Erythro NORMAL No No No No Mar 08 cyte informa informa informa informa 2017 morphol tion in tion in tion in tion in 11:17 ogy source source source source AM finding data data data data [Identi fier] in Blood Cells No #CELLS No No Mar 08 Counted informati informati informati 2016 Total [#] on in on in on in 11:17 AM in Blood source source source data data data Erythrocyte sedimentation rate by Westergren method Observa Value Referen Units Interpr Notes Date ti ce etation Range Erythrocy 0 - 30 mm/hr High No Mar 08 te 2016 sedimenta on in 11:17 AM tion rate source by data Westergre n method Lactate [Moles/volume] in Blood Observa Value Referen Units Interpr Notes Date ti ce etation Range Lactate 0.4 - 2.0 mmol/L High An Mar 08 [Moles/vo elevated 2017 lume] in Lactic 11:17 AM Blood Acid is suggestiv e of sepsis and shouldbe repeated within 6 hours of initial testing. INR in Blood by Coagulation assay Observa Value Referen Units Interpr Notes Date ti ce etation Range IS PATIENT ON ANTICOAGULANTS? Y LIST ANTICOAGULANTS: COUMADIN PTT RESULTS MUST BE CALLED IF PT ON HEPARIN!!! Y INR in 0.9 - 1.1 No High INDICATIO Mar 08 Blood by informati N 2017 Coagulati on in 11:17 AM on assay source INR data RANGETHER APY FOR DVT, PE, ATRIAL FIB; 2.0 - 3.0PROPHY LAXIS FOR VTETHERAP Y FOR MECHANICA L HEART 2.5 - 3.5VALVE; PREVENTIO N OF SYSTEMICE MBOLISM SECONDARY TO AMI Prothromb 9.4 - SECONDS High No Mar 08 in time 11.8 inform2016 (PT) in on in 11:17 AM Platelet source poor data plasma by Coagulati on assay Activated partial thrombplastin time (aPTT) in Platelet poor plasma by Coagulation assay Observa Value Referen Units Interpr Notes Date ti ce etation Range IS PATIENT ON ANTICOAGULANTS? Y LIST ANTICOAGULANTS: COUMADIN PTT RESULTS MUST BE CALLED IF PT ON HEPARIN!!! Y Activated 23.6 - SECONDS Normal No Mar 08 partial 34.0 inform2016 thrombpla on in 11:17 AM stin time source (aPTT) data in Platelet poor plasma by Coagulati on assay Comprehensive metabolic 2000 panel in Serum or Plasma Observa Value Referen Units Interpr Notes Date tion ce etation Range Albumin/G 1.1 - 1.8 No Low No Mar 08 lobulin informati informati 2016 [Mass on in on in 11:17 AM ratio] in source source Serum or data data Plasma Albumin 3.4 - 5.0 gm/dL Low No Mar 08 [Mass/vol informati 2016 ume] in on in 11:17 AM Serum or source Plasma data Alkaline 46 - 116 U/L Normal No Mar 08 phosphata informati 2016 se on in 11:17 AM [Enzymati source c data activity/ volume] in Serum or Plasma Bilirubin 0.2 - 1.0 mg/dL Normal No Mar 08 .total informati 2016 [Mass/vol on in 11:17 AM ume] in source Serum or data Plasma Urea 7 - 18 mg/dL High No Mar 08 nitrogen informati 2016 [Mass/vol on in 11:17 AM ume] in source Serum or data Plasma Calcium 8.5 - mg/dL Normal No Mar 08 [Mass/vol 10.1 informati 2016 ume] in on in 11:17 AM Serum or source Plasma data Chloride 98 - 107 mmoL/L Normal No Mar 08 [Moles/vo informati 2016 lume] in on in 11:17 AM Serum or source Plasma data Carbon 21.0 - mmoL/L Normal No Mar 08 dioxide, 32.0 informati 2016 total on in 11:17 AM [Moles/vo source lume] in data Serum or Plasma Creatinin 0.55 - mg/dL Normal No Mar 08 e 1.02 informati 2016 [Mass/vol on in 11:17 AM ume] in source Serum or data Plasma Creatinin 50 - 200 ML/MIN Normal No Mar 08 e renal informati 2017 clearance on in 11:17 AM source predicted data by Cockcroft -Gault formula Estimated 59- ML/MIN Low REFERENCE Mar 08 RANGE: 2017 glomerula >60 11:17 AM r ML/MIN/1. filtratio 73 SQUARE n rate METERSIf (GF this patient is -A merican, then multiply theresult by 1.210. Globulin 1.3 - 3.2 gm/dL High No Mar 08 [Mass/vol informati 2016 ume] in on in 11:17 AM Serum source data Glucose 74 - 106 mg/dL High No Mar 08 [Mass/vol informati 2016 ume] in on in 11:17 AM Serum or source Plasma data Potassium 3.5 - 5.1 mmoL/L Normal No Mar 082016 [Moles/vo on in 11:17 AM lume] in source Serum or data Plasma Sodium 136 - 145 mmoL/L Normal No Mar 08 [Moles/vo informati 2016 lume] in on in 11:17 AM Serum or source Plasma data Aspartate 15 - 37 U/L Normal No Mar 082016 aminotran on in 11:17 AM sferase source [Enzymati data c activity/ volume] in Serum or Plasma Alanine 12 - 78 U/L Normal No Mar 08 aminotran inform2016 sferase on in 11:17 AM [Enzymati source c data activity/ volume] in Serum or Plasma Protein 6.4 - 8.2 gm/dL Normal No Mar 08 [Mass/vol informati 2016 ume] in on in 11:17 AM Serum or source Plasma data CRP Observa Value Referen Units Interpr Notes Date tion ce etation Range CRP 0.0 - 0.9 MG/DL High No Mar 08 inform2016 on in 11:17 AM source data INR in Blood by Coagulation assay Observa Value Referen Units Interpr Notes Date tion ce etation Range INR in 0.9 - 1.1 No High Results Mar 07 Blood by informati sent to: 2016 Coagulati on in [place] 11:30 AM on assay source Ernesto PRICE data E. 03/07/17 1605Blank Baldemar armas mmy Pharmacis t recommend ation for Warfarint herapy is: PATIENT INR 2.4 TODAY VIA FINGERSTI CK.RECOMM ENDED PATIENT CONTINUE WITH WARFARIN 2.5 MG ONTUE/WED /FRI; 3.75 MG ON TUE/TUE/T HU/SAT. PATIENT ISCURRENT [...] 59- ML/MIN Low REFERENCE Feb 28 RANGE: 2016 glomerula >60 10:37 AM r ML/MIN/1. filtratio [...] 136 - 145 mmoL/L Normal No Feb 28 [Moles/vo informati 2016 lume] in on in 10:37 AM Serum or source Plasma data Aspartate 15 - 37 U/L Normal No Feb 28 inform2016 aminotran on in 10:37 AM sferase source [Enzymati data c activity/ volume] in Serum or Plasma Alanine 12 - 78 U/L Normal No Feb 28 aminotran informati 2016 sferase on in 10:37 AM [Enzymati [...] INDICATIO Feb 28 Blood by informati N 2017 Coagulati on in 10:37 AM on assay [...] High No Feb 28 in time 11.8 2016 (PT) in on in 10:37 AM [...] - 2.0 % Normal No Feb 28 / inform2016 leukocyte on in 10:37 AM s in source Blood by data Automated count Eosinophi 0.0 - 0.4 K/mm3 Normal Feb 28 ls 2016 [#/volume on in 10:37 AM ] in source Blood by data Automated count Eosinophi 0.1 - % Normal Feb 28 ls/100 12.0 2016 leukocyte on in 10:37 AM s in source Blood by data Automated count Granulocy 1.8 - 7.8 K/mm3 Normal Feb 28 bala 2016 [#/volume on in 10:37 AM ] in source Blood by data Automated count Granulocy 37.0 - % High No Feb 28 bala/100 80.0 2016 leukocyte on in 10:37 AM s in source Blood by data Automated count Hematocri 37.0 - % Low Feb 28 t [Volume 47.0 2016 on in 10:37 AM Fraction] source of Blood data Hemoglobi 12.2 - g/dL Low Feb 28 n 16.2 2016 [Mass/vol on in 10:37 AM ume] in source Blood data Lymphocyt 0.7 - 4.5 K/mm3 Normal Feb 28 es 2016 [#/volume on in 10:37 AM ] in source Unspecifi data ed specimen by Automated count Lymphocyt 10 - 50.0 % Normal Feb 28 es 2016 [#/volume on in [...] 1.7 - 9.3 % Normal No Feb 282016 leukocyte on in 10:37 AM s in [...] 0.1 - 2.0 % Normal No Feb 252016 leukocyte on in 11:58 AM s in source Blood by data Automated count Eosinophi 0.0 - 0.4 K/mm3 Normal No Feb 10 ls inform2016 [#/volume on in 11:58 AM ] in source Blood by data Automated count Eosinophi 0.1 - % Normal No Feb 25 ls/100 12.0 inform2016 leukocyte on in 11:58 AM s in source Blood by data Automated count Granulocy 1.8 - 7.8 K/mm3 High No Feb 10 bala inform2016 [#/volume on in 11:58 AM ] in source Blood by data Automated count Granulocy 37.0 - % High No Feb 25 bala/100 80.0 inform2016 leukocyte on in 11:58 AM s in source Blood by data Automated count Hematocri 37.0 - % Low No Feb 25 t [Volume 47.0 ati 2016 on in 11:58 AM Fraction] source of Blood data Hemoglobi 12.2 - g/dL Low No Feb 25 n 16.2 inform2016 [Mass/vol on in 11:58 AM ume] in [...] Erythrocy 31.8 - g/dl Normal No Feb 25 te mean 35.4 2016 corpuscul on in 11:58 AM ar source hemoglobi data n concentra tion [Mass/vol ume] by Automated count Erythrocy 82.2 - fl High No Feb 25 te mean 97.8 inform2016 corpuscul on in 11:58 AM ar volume source [Entitic data volume] by Automated count Monocytes 0.1 - 1.0 K/mm3 Normal No Feb 252016 [#/volume on in 11:58 AM ] in source Blood by data Automated count Monocytes 1.7 - 9.3 % Normal No Feb 10 /100 inform2016 leukocyte on in 11:58 AM s in source Blood by data Automated count Platelet 7.4 - fl Normal No Feb 25 mean 10.4 2016 volume on in 11:58 AM [Entitic source volume] data in Blood by Automated count Platelets 142 - 424 K/mm3 Normal No Feb 252016 [#/volume on in 11:58 AM ] in source Blood data Erythrocy 4.2 - 5.4 M/mm3 Low No Feb 25 bala 2016 [#/volume on in 11:58 AM ] in source Amniotic data fluid Erythrocy 11.5 - % Normal No Feb 25 te 17.5 2016 distribut on in 11:58 AM ion width source [Entitic data volume] by Automated count Leukocyte 4.8 - K/MM3 High No Feb 25 s 10.8 2016 [#/volume on in 11:58 AM ] in source Blood data Differential panel, method unspecified - Observa Value Referen Units Interpr Notes Date tion ce etation Range Neutrophi 0 - 8 % High No Feb 25 ls.band 2016 form/100 on in 11:58 AM leukocyte source s in data Blood by Automated count LYMPH 4 10 - 50 % Low No Feb 25a 2016 tion in 11:58 source AM data Monocytes 2 - 9 % Normal No Feb 10 /100 2016 leukocyte on in 11:58 AM s in source Blood by data Automated count Platele NORMAL No No No No Feb 25 ts informa informa informa inform2016 [Presen tion in tion in tion in tion in 11:58 ce] in source source source source AM Blood data data data data by Light microsc opy Neutrophi 42 - 76 % High No Feb 25 ls 2016 [#/volume on in 11:58 AM ] in source Blood by data Automated count Cells No #CELLS No Feb 25 Counted ati 2016 Total [#] on in on in on in 11:58 AM in Blood source source source data data data Basic metabolic panel in Blood Observa Value Referen Units Interpr Notes Date tion ce etation Range Urea 7 - 18 mg/dL High No Feb 25 nitrogen 2016 [Mass/vol on in 11:58 AM ume] in source Serum or data Plasma Calcium 8.5 - mg/dL Normal Feb 25 [Mass/vol 10.1 2016 ume] in on in 11:58 AM [...] - 5.1 mmoL/L Normal No Feb 25 inform2016 [Moles/vo on in 11:58 AM lume] in [...] Feb 14 Blood by informati sent to: 2017 Coagulati on in [place] 10:20 AM on assay source Ernesto PRICE data E. 02/14/17 1036Blank enship,Ji mmy Pharmacis t recommend ation for Warfarint herapy is: PATIENT INR 2.4 TODAY VIA FINGERSTI CK.RECOMM ENDED PATIENT CONTINUE WITH CURRENT DOSE OF WARFARIN2 .5 MG ON TUE/TUE; 3.75 MG ON SUN/TUE/W ED/JEMAL/SA T. WILLFOLLO W UP ON 03/25. FOR DETAILED INFORMATI ON-PLEASE REVIEW PROGRESS NOTEI N THE ASSESSMEN AND ANTICOAGU [facility] REVIEWIND ICATION INR RANGETHER APY FOR DVT, PE, ATRIAL FIB; 2.0 - 3.0PROPHY LAXIS FOR VTETHERAP Y FOR MECHANICA L HEART 2.5 - 3.5VALVE; PREVENTIO N OF SYSTEMICE MBOLISM SECONDARY TO AMI INR in Blood by Coagulation assay Observa Value Referen Units Interpr Notes Date tion ce etation Range INR in 0.9 - 1.1 No High Results Jan 2 Blood by informati sent to: 2016 Coagulati on in [place] 11:00 AM on assay source Ernesto PRICE data E. 01/17/17 1549Blank Baldemar armas Pharmacis t recommend ation for Warfarint herapy is: PATIENT INR 2.3 TODAY VIA FINGERSTI CK.RECOMM ENDED PATIENT CONTINUE WITH CURRENT DOSE OF WARFARIN2 .5 MG ON TUE/TUE; 3.75 MG ON SUN/TUE/W ED/JEMAL/SA T.FOR DETAILED INFORMATI ON-PLEASE REVIEW PROGRESS NOTEI N [facility] REVIEWIND ICATION INR RANGETHER APY FOR DVT, [...] High No Sep 18 in time 11.8 inform2016 8:50 (PT) in on in AM Platelet source poor data plasma by Coagulati on assay Activated 23.6 - SECONDS Normal No Sep 18 partial 34.0 informati 2016 8:50 thrombpla on in AM stin time source (aPTT) data in Platelet poor plasma by Coagulati on assay CBC W Auto Differential panel in Blood Observa Value Referen Units Interpr Notes Date tion ce etation Range Basophils 0 - 0.2 K/MM3 Normal No Sep 18 informati 2016 8:50 [...] Normal No Sep 18 mean 10.4 informati 2016 8:50 volume on in AM [Entitic source [...] mg/dL High No Sep 18 nitrogen informati 2017 8:50 [Mass/vol on in AM ume] in source Serum or data Plasma Calcium 8.5 - mg/dL Normal No Sep 18 [Mass/vol 10.1 informati 2017 8:50 ume] in on in AM Serum or source Plasma data Chloride 98 - 107 mmoL/L Normal No Sep 18 [Moles/vo informati 2016 8:50 lume] in on in AM Serum or source Plasma data Carbon 21.0 - mmoL/L Normal No Sep 18 dioxide, 32.0 informati 2017 8:50 total on in AM [Moles/vo source lume] in data Serum or Plasma Creatinin 0.55 - mg/dL Normal No Sep 18 e 1.02 informati 2017 8:50 [Mass/vol on in AM ume] in source Serum or data Plasma Estimated 59- ML/MIN Low REFERENCE Sep 18 RANGE: 2016 8:50 glomerula >60 AM r ML/MIN/1. filtratio 73 SQUARE n rate METERSIf (GF this patient is -A merican, then multiply theresult by 1.210. Glucose 74 - 106 mg/dL High No Sep 18 [Mass/vol informati 2017 8:50 ume] in on in AM Serum or source Plasma data Potassium 3.5 - 5.1 mmoL/L Normal No Sep 18 informati 2017 8:50 [Moles/vo on in AM lume] in source Serum or data Plasma Sodium 136 - 145 mmoL/L Normal No Sep 18 [Moles/vo informati 2017 8:50 lume] in on in AM Serum or source Plasma data Basic metabolic panel in Blood Observa Value Referen Units Interpr Notes Date tion ce etation Range Urea 7 - 18 mg/dL High No Sep 15 nitrogen informati 2017 [Mass/vol on in 12:04 PM ume] in source Serum or data Plasma Calcium 8.5 - mg/dL Normal No Sep 15 [Mass/vol 10.1 informati 2017 ume] in on in 12:04 [...] Normal No Sep 15 e 1.02 informati 2017 [Mass/vol on in 12:04 PM ume] in source Serum or data Plasma Estimated 59- ML/MIN Low REFERENCE Sep 15 RANGE: 2016 glomerula >60 12:04 PM r ML/MIN/1. filtratio 73 SQUARE n rate METERSIf (GF this patient is -A merican, then multiply theresult by 1.210. Glucose 74 - 106 mg/dL High No Dec 31 [Mass/vol informati 2016 ume] in on in 12:04 PM Serum or source Plasma data Potassium 3.5 - 5.1 mmoL/L Normal No Dec 31 informati 2016 [Moles/vo on in 12:04 PM lume] in source Serum or data Plasma Sodium 136 - 145 mmoL/L Normal No Dec 15 [Moles/vo informati 2016 lume] in on in 12:04 PM Serum or source Plasma data Hemoglobin A1c in Blood Observa Value Referen Units Interpr Notes Date tion ce etation Range Hemoglo 6.6 0.0 - % Normal < 6% Dec 31 bin A1c 7.0 NON-FEDERICO 2017 in BETIC 12:04 Blood LEVEL< PM 7% CONTROL LED DIABETI C LEVEL> 8% POORLY CONTROL LED DIABETI C LEVEL INR in Blood by Coagulation assay Observa Value Referen Units Interpr Notes Date tion ce etation Range INR in 0.9 - 1.1 No High Results Dec 06 Blood by informati sent to: 2017 Coagulati on in [place] 11:00 AM on assay source Ernesto PRICE data E. 12/06/16 1415Blank enship,Ji mmy Pharmacis t recommend ation for Warfarint [...] Value Referen Units Interpr Notes Date ti etation Range INR in 0.9 - 1.1 No High Results Nov 08 Blood by informati sent to: 2017 Coagulati on in [place] 11:45 AM on assay source Ernesto PRICE data E. 11/08/16 1607Blank enship,Ji mmy Pharmacis t recommend ation for Warfarint herapy is: PATIENT INR 1.9 TODAY VIA FINGERSTI CK.RECOMM ENDED PATIENT TAKE EXTRA 1.25 MG TODAY AND THEN 2.5MG ON MON/FRI; 3.75 MG ON TUE/TUE/W ED/JEMAL/SA T.FOR DETAILED INFORMATI ON-PLEASE REVIEW PROGRESS [...] Plasma Observa Value Referen Units Interpr Notes etation Range Angiotens 14 - 82 U/L No Performed Nov 01 in informati at: CB 2016 3:14 convertin on in - [facility] PM g enzyme source [Enzymati data [id number] c 0 Hyman activity/ Road, volume] Satish, in Serum [place] or Plasma [id number] Satellite Manager: Chano Berrios PhD, Phone: [phone] Iron and TIBC Observa Value Referen Units Interpr Notes Date ti ce etation Range Iron 250 - 450 [...] No No Nov 01 [Mass/vol informati informati 2017 3:14 ume] in on in on in PM Serum or source source Plasma data data Iron 15 - 55 % No Performed Nov 01 saturatio informati at: CB 2017 3:14 n [Mass] on in - [facility] PM in Serum source or Plasma data [address] [address] [address] [place], [place] [id number] Satellite Manager: Chano Berrios PhD, Phone: [phone] Comprehensive metabolic 2000 panel in Serum [...] 59- ML/MIN Low REFERENCE Nov 01 RANGE: 2016 3:14 glomerula >60 PM r ML/MIN/1. filtratio [...] 3.5 - 5.1 mmoL/L High No Nov 012016 3:14 [Moles/vo on in PM lume] in source Serum or data Plasma Sodium 136 - 145 mmoL/L Normal No Nov 01 [Moles/vo informati 2016 3:14 lume] in on in PM Serum or source Plasma data Aspartate 15 - 37 U/L Normal No Nov 012016 3:14 aminotran on in PM sferase source [Enzymati data c activity/ volume] in Serum or Plasma Alanine 12 - 78 U/L Normal No Nov 01 aminotran 2016 3:14 sferase on in PM [Enzymati source c data activity/ volume] in Serum or Plasma Protein 6.4 - 8.2 gm/dL Low No Nov 01 [Mass/vol informati 2016 3:14 ume] in on in PM Serum or source Plasma data Ferritin [Mass/volume] in Serum or Plasma Observa Value Referen Units Interpr Notes Date tion ce etation Range Ferritin 8 - 388 ng/mL Normal No Nov 01 [Mass/vol informati 2016 3:14 ume] in on in PM Serum or source Plasma data CBC W Auto Differential panel in Blood Observa Value Referen Units Interpr Notes Date tion ce etation Range Basophils 0 - 0.2 K/MM3 Normal No Nov 012016 3:14 [#/volume on in PM ] in source Blood by data Automated count Basophils 0.1 - 2.0 % Normal No Nov 01 informati 2016 3:14 leukocyte on in PM s in source Blood by data Automated count Eosinophi 0.0 - 0.4 K/mm3 Normal No Nov 01 ls 2016 3:14 [#/volume on in PM ] [...] - 50.0 % Normal No Nov 01 informati 2016 3:14 [...] - 9.3 % Normal No Nov 01 / informati 2017 3:14 leukocyte on in PM s in [...] K/MM3 Normal No Nov 01 s 10.8 informati 2016 3:14 [#/volume on in PM [...] data data creatPerf ormed at: - [facility] [address] [address] [address] [place], [place] [id number] Satellite Manager: Chano Berrios PhD, Phone: [phone] Creatinin Not mg/dL No No Oct [...] 3.5 - 5.1 mmoL/L High No Oct 112016 [Moles/vo on in 10:03 AM lume] in source Serum or data Plasma Sodium 136 - 145 mmoL/L Normal No Oct 11 [Moles/vo 2016 lume] in on in 10:03 AM Serum or source Plasma data Aspartate 15 - 37 U/L Low No Oct 112016 aminotran on in 10:03 AM sferase source [Enzymati data c activity/ volume] in Serum or Plasma Alanine 12 - 78 U/L Normal No Oct 11 aminotran 2016 sferase on in 10:03 AM [Enzymati source c data activity/ volume] in Serum or Plasma Protein 6.4 - 8.2 gm/dL Normal No Oct 11 [Mass/vol inform2016 ume] in on in 10:03 AM Serum or source Plasma data Lipid 1996 panel in Serum or Plasma Observa Value Referen Units Interpr Notes Date tion ce etation Range Cholester < 200 mg/dL High No Oct 11 ol 2016 [Moles/vo on in 10:03 AM lume] in source Unspecifi data ed specimen Cholester 40 - 60 MG/DL High No Oct 11 ol in HDL 2016 on in 10:03 AM [Mass/vol source ume] in data Serum or Plasma Cholester 0 - 130 mg/dL Normal No Oct 11 ol in LDL 2016 on in 10:03 AM [Mass/vol source ume] in data Serum or Plasma by calculati on Triglycer 30 - 200 mg/dL High No Oct 11 prisca 2016 [Moles/vo on in 10:03 AM lume] in source Serum or data Plasma Cholester 0 - 40 No High No Oct 11 ol in informati 2016 VLDL on in on in 10:03 AM [Mass/vol source source ume] in data data Serum or Plasma Thyrotropin [Units/volume] in Serum or Plasma Observa Value Referen Units Interpr Notes Date tion ce etation Range Thyrotrop 0.358 - uIU/ml No No Oct 11 in 3.740 inform2016 [Units/vo on in on in 10:03 AM lume] in source source Serum or data data Plasma Hemoglobin A1c in Blood Observa Value Referen Units Interpr Notes Date tion ce etation Range Hemoglo 6.5 0.0 - % Normal < 6% Oct 11 bin A1c 7.0 NON-FEDERICO 2016 in BETIC 10:03 Blood LEVEL< AM 7% CONTROL LED DIABETI C LEVEL> 8% POORLY CONTROL LED DIABETI C LEVEL INR in Blood by Coagulation assay Observa Value Referen Units Interpr Notes Date tion ce etation Range INR in 0.9 - 1.1 No High INDICATIO Oct 11 Blood by informati N 2016 Coagulati on in 10:03 AM on assay source INR data RANGETHER APY FOR DVT, PE, ATRIAL FIB; 2.0 - 3.0PROPHY LAXIS FOR VTETHERAP Y FOR MECHANICA L HEART 2.5 - 3.5VALVE; PREVENTIO N OF SYSTEMICE MBOLISM SECONDARY TO AMI Prothromb 9.4 - SECONDS High No Oct 11 in time 11.8 informati 2017 (PT) in on in 10:03 AM Platelet source poor data plasma by Coagulati on assay INR in Blood by Coagulation assay Observa Value Referen Units Interpr Notes Date ti ce etation Range INR in 0.9 - 1.1 No High Results Sep 20 Blood by informati sent to: 2016 Coagulati on in [place] 11:45 AM on assay source Ernesto PRICE data E. 09/20/16 1214Blank enship,Baldemar mmy Pharmacis t recommend ation for Warfarint herapy is: PATIENT INR 2.6 TODAY VIA FINGERSTI CK.RECOMM ENDED PATIENT CONTINUE WITH CURRENT DOSE OF WARFARIN2 .5 MG ON MON/FRI; 3.75 MG ON TUE/TUE/W ED/JEMAL/SA T. WILLFOLLO W UP IN 5 [...] September 09 Blood by informati sent to: 2017 Coagulati on in [place] 11:30 AM on assay source Ernesto PRICE data E. 09/09/16 1219Blank Baldemar armas mmy Pharmacis t recommend ation [...]
--- OUTSIDE RECORDS SUMMARY | 2017-03-08 13:52 | External Medical Summary Rpt ---
[...] PROGRESS NOTEI N THE ASSESSMEN AND ANTICOAGU [facility] IN PCI/CL[facility]I [facility] REVIEW[facility] ICATION INR RANGETHER APY FOR DVT, [...] PROGRESS NOTEI N THE ASSESSMEN AND [facility]ICOAGU [facility] PCI/CL[facility]I [facility] REVIEWIND ICATION INR RANGETHER APY FOR DVT, [...] [facility] PM g enzyme source [Enzymati data [id number] c 0 [address] activity/ Road, volume] Satish, in Serum [place] or Plasma [id number] Web Site Designer: Chano Berrios PhD, Phone: [phone] Iron and TIBC Observa Value Referen [...] PM in Serum source or Plasma data [address] [address] [address] [place], [place] [id number] Web Site Designer: Chano Berrios PhD, Phone: [phone] Comprehensive metabolic 2000 panel in Serum [...] data data creatPerf ormed at: - [facility] [address] [address] [address] [place], [place] [id number] Web Site Designer: Chano Berrios PhD, Phone: [phone] Creatinin Not mg/dL No No Oct [...] informati sent to: 2016 Coagulati on in [place] 11:45 AM on assay source Ernesto PRICE [...] informati sent to: 2017 Coagulati on in [place] 11:30 AM on assay source Ernesto PRICE [...]
[2017-03-08 13:58] LABS: URINE SQUAMOUS CELLS 20-50 #/hpf (0-5)
[2017-03-08] MEDS ORDERED: WARFARIN SODIU2.5 MG PO ×2 (14:18)
--- NOTE | 2017-03-08 15:38 | CONSULT NOTE ---
Pharmacokinetic Consult Date of consult: 03/08/17 Time of consult: 4442 Referring provider: DR. COOPER Reason for consult: VANCOMYCIN DOSING Allergies: Coded Allergies: HMG-CoA Reductase Inhibitors (Intermediate, I-RASH 06/09/15) Sulfa (Sulfonamide Antibiotics) (Intermediate, I-HIVES 06/09/15) sumatriptan (Intermediate, I-RASH 06/09/15) morphine (Mild, HALLUCINATIONS 06/09/15) phenylephrine (06/09/15) pseudoephedrine (06/09/15) venom-honey bee (bee venom (honey bee)) (06/09/15) Penicillins (Intermediate, SWELLING/REDNESS @INJECTION SITE 06/09/15) amlodipine (Intermediate, SWELLING OF FEET/ANKLES 06/09/15) dipyridamole (From Aggrenox) (Mild, NA-NAUSEA/VOMITING; HEADACHE 03/18/15) promethazine (Mild, RESTLESSNESS 03/18/15) Home Medications: Active Scripts Spironolactone (Aldactone) 50 MG PO BIDD #180 TAB Ref 1 Prov: 04/02/15 Reported Medications WARFARIN SOD (Warfarin 2.5MG) 2.5 MG PO MoWeFr WARFARIN SOD (Warfarin 2.5MG) 3.75 MG PO SuTuThSa Minocycline Hcl (Minocycline 100MG. Capsule) 100 MG PO DAILY #20 Ascorbic Acid (Vitamin C) 500 MG PO DAILY Cyanocobalamin (Vitamin B12) 1,000 MCG PO DAILY Carvedilol (Carvedilol 25MG) 25 MG PO BID Polyvinyl Alcohol (Artificial Tears) 15 ML OP PRN Calcium Polycarbophil (Fibercon) 625 MG PO BID Losartan Potassium (Losartan 100MG) 100 MG PO DAILY Aspirin (Tanya Chewable Aspirin) 81 MG PO DAILY Levothyroxine Sodium (Levothyroxine 0.088MG) 0.088 MG PO DAILY Budesonide (Budesonide EC) 6 MG PO DAILY CHOLECALCIFEROL (VITAMIN D3) (Vitamin D) 2,000 IUNITS PO BID B.ANI/L.ACI/L.DAYTON/L.PLAN/L.SYLVAIN (Probiotic Formula Capsule) 1 CAP PO DAILY Furosemide (Lasix 20MG) 20 MG PO BID SALMETEROL 50/FLUTICASONE 100 (Advair 100-50 Diskus) 1 PUFFS IN BID Ranitidine Hcl (Ranitidine 150MG) 150 MG PO BID Height (feet): 5 Height (inches): 0.00 Medical History: CAD? No Angina: Yes [place]: No Hypertension? Yes Hyperlipidemia? Yes CHF? No DVT? No PE? No COPD? No Asthma? Yes Anemia? No GERD? No Gastric ulcers? No GI Bleed? No Hernia? Yes Thyroid Problems? No Hypothyroidism? No CVA? Yes Seizures? No Diabetes? Yes Insulin Dependent: No Insulin Pump: No Home FSBS? Yes Renal Insuffiency? No UTI? Yes Stones? No BPH? No GB Disease: No Nephritic Syndrome? No Asplenia? No Hepatitis? Yes Sickle Cell Disease? No Arthritis? No Migraines? No Cataracts? Yes Glaucoma? No MRSA? No HIV? No TB? No Anxiety? No Depression? No Cancer? Yes Site: BASAL CELL ON FOREHEAD Labs: Laboratory Tests 03/08/17 1317: Urine Color YELLOW, Urine Appearance CLEAR, Urine pH 7.0, Ur Specific [place] 1.010, Urine Protein TRACE H, Urine Ketones NEGATIVE, Urine Blood NEGATIVE, Urine Nitrate NEGATIVE, Urine Bilirubin NEGATIVE, Urine Urobilinogen 0.2, Ur Leukocyte Esterase NEGATIVE, Urine RBC NONE, Urine WBC OCC, Ur Squamous Epith Cells 20-50, Urine Bacteria 2+, Urine Glucose NEGATIVE 03/08/17 1117: Lactic Acid 2.6 H 03/08/17 1117: Sodium 144, Potassium 3.6, Chloride 105, Carbon Dioxide 29, BUN 28 H, Creatinine 1.0, Estimated Creat Clear 60, Estimated GFR (MDRD) 54 L, Glucose 178 H, Calcium 9.3, Total Bilirubin 0.7, AST 25, ALT 35, Alkaline Phosphatase 114, Total Protein 6.5, Albumin 3.0 L, Globulin 3.5 H, Albumin/Globulin Ratio 0.9 L, PT 19.7 H, INR 1.81 H, APTT 28.1, WBC 9.6, RBC 3.78 L, Hgb 12.2, Hct 36.9 L, MCV 97.6, RDW 14.3, Plt Count 228, MPV 7.5, Gran % 89.8 H, Gran # 8.6 H, Total Counted 100, Lymphocytes % 4.7 L, Monocytes % 3.5, Eosinophils % 1.5, Basophils % 0.4, Neutrophils 91 H, Lymphocytes (Manual) 3 L, Lymphocytes # 0.5 L, Monocytes (Manual) 5, Monocytes # 0.3, Eosinophils # 0.2, Eosinophils # ( Manual) 1, Basophils # 0.0, RBC/WBC/PLT Morphology NORMAL, Platelet Estimate NORMAL, PUBS MCHC 33.2, ESR 59 H, MCH 32.4 H Microbiology 03/08 1317 URINE CC: Urine Culture - RECD 03/08 1117 BLOOD: Anaerobic Blood Culture - RECD 03/08 1117 BLOOD: Aerobic Blood Culture - RECD 03/08 1117 BLOOD: Anaerobic Blood Culture - RECD 03/08 1117 BLOOD: Aerobic Blood Culture - RECD Problem List: 1. Lymphedema of both lower extremities 2. Chronic venous insufficiency 3. Cellulitis 4. Cellulitis of leg without foot, right 5. Cellulitis of leg without foot, left Plan: RECOMMEND PATIENT START WITH VANCOMYCIN 1500 MG X1 DOSE TODAY, THEN CONTINUE TOMORROW AT VANCOMYCIN 1250 MG Q24H. PHARMACY WILL FOLLOW DAILY AND ADJUST APPROPRIATE. KIRAN NEUMANN, PHARMD at [phone]
[2017-03-08 15:52] VITALS: BP 154/72
--- NOTE | 2017-03-08 17:03 | HISTORY AND PHYSICAL REPORT ---
Demographics: Admit date: 03/08/17 Chief complaint: LE pain, nausea and vomiting PRIMARY DIAGNOSIS: CELLULITITS Allergies: Coded Allergies: HMG-CoA Reductase Inhibitors (Intermediate, I-RASH 06/09/15) Sulfa (Sulfonamide Antibiotics) (Intermediate, I-HIVES 06/09/15) sumatriptan (Intermediate, I-RASH 06/09/15) morphine (Mild, HALLUCINATIONS 06/09/15) phenylephrine (06/09/15) pseudoephedrine (06/09/15) venom-honey bee (bee venom (honey bee)) (06/09/15) Penicillins (Intermediate, SWELLING/REDNESS @INJECTION SITE 06/09/15) amlodipine (Intermediate, SWELLING OF FEET/ANKLES 06/09/15) dipyridamole (From Aggrenox) (Mild, NA-NAUSEA/VOMITING; HEADACHE 03/18/15) promethazine (Mild, RESTLESSNESS 03/18/15) History of present illness: History of present illness: 76 year old female with a history of diabetes, CVA and DVT on warfarin therapy presented to the ED with increase in lower extremity pain, swelling and vomiting. Patient has an ongoing history of chronic cellulitis and lymphedema. She is followed by the lymphedema clinic. She was referred to PCP by lymphedema specialist for evaluation of lower extremity cellulitis approximately 2 weeks ago. She was started on Keflex and wound cultures were obtained. Culture was positive for MRSA and she was switched to minocycline a couple of days ago. Patient reports pain has increased and she's become significantly nauseated with vomiting and diarrhea. No fevers. In the ED, White blood cell count was found to be normal. Lower extremity x-rays were negative for acute pathology. Sedimentation rate and C-reactive protein were elevated. Patient was admitted to acute care for IV antibiotics and further evaluation. Past medical history: Family HX Diabetes No CAD Yes Hypertension Yes Hyperlipidemia Yes Cancer No TB No Immunization HX DT/Tetanus Unknown Flu [id number] Pneumonia Received In Past TB Test in last year No General CAD? No Angina: Yes [place]: No Hypertension? Yes Hyperlipidemia? Yes CHF? No DVT? No PE? No COPD? No Asthma? Yes Anemia? No GERD? No Gastric ulcers? No GI Bleed? No Hernia? Yes Thyroid Problems? No Hypothyroidism? No CVA? Yes Seizures? No Diabetes? Yes Insulin Dependent: No Insulin Pump: No Home FSBS? Yes Renal Insuffiency? No UTI? Yes Stones? No BPH? No GB Disease: No Nephritic Syndrome? No Asplenia? No Hepatitis? Yes Sickle Cell Disease? No Arthritis? No Migraines? No Cataracts? Yes Glaucoma? No MRSA? No HIV? No TB? No Anxiety? No Depression? No Cancer? Yes Site: BASAL CELL ON FOREHEAD Past Surgical HX Previous Surgery?Y 3 BLADDER SURGERIES SINUS THYROID BILAT BREAST BX HYSTERECTOMY COMPLETE APPY 2 LAP. PROCED. 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 MARYAM FILTER PLACED COLOSTOMY R/T RUPTURE COLOSTOMY REVERSAL HERNIA REPAIR [place] teeth extraction EYE SURGERY X 3 Current home meds: Active Scripts Spironolactone (Aldactone) 50 MG PO BIDD #180 TAB Ref 1 Prov: 04/02/15 Reported Medications WARFARIN SOD (Warfarin 2.5MG) 2.5 MG PO MoWeFr WARFARIN SOD (Warfarin 2.5MG) 3.75 MG PO SuTuThSa Minocycline Hcl (Minocycline 100MG. Capsule) 100 MG PO DAILY #20 Ascorbic Acid (Vitamin C) 500 MG PO DAILY Cyanocobalamin (Vitamin B12) 1,000 MCG PO DAILY Carvedilol (Carvedilol 25MG) 25 MG PO BID Polyvinyl Alcohol (Artificial Tears) 15 ML OP PRN Calcium Polycarbophil (Fibercon) 625 MG PO BID Losartan Potassium (Losartan 100MG) 100 MG PO DAILY Aspirin (Tanya Chewable Aspirin) 81 MG PO DAILY Levothyroxine Sodium (Levothyroxine 0.088MG) 0.088 MG PO DAILY Budesonide (Budesonide EC) 6 MG PO DAILY CHOLECALCIFEROL (VITAMIN D3) (Vitamin D) 2,000 IUNITS PO BID B.ANI/L.ACI/L.[place]/L.PLAN/L.SYLVAIN (Probiotic Formula Capsule) 1 CAP PO DAILY Furosemide (Lasix 20MG) 20 MG PO BID SALMETEROL 50/FLUTICASONE 100 (Advair 100-50 Diskus) 1 PUFFS IN BID Ranitidine Hcl (Ranitidine 150MG) 150 MG PO BID Social Hx: Smoking HX Tobacco No Are you/the child exposed to second-hand smoke: No Alcohol Alcohol: No Hx of Drug Use Drug Use? No Patient's support system is good Review of systems: Constitutional No: no symptoms reported. Eyes No: no symptoms reported. Ears, Nose, Mouth, Throat No no symptoms reported Respiratory No: no symptoms reported. Cardiovascular No no symptoms reported Gastrointestinal/Abdominal diarrhea, nausea, vomiting Genitourinary No: no symptoms reported. Musculoskeletal No: no symptoms reported. Skin see HPI. Neurological No: see HPI. Psychiatric No: no symptoms reported. Exam: Lab data for last 24 hours: Laboratory Tests 03/08/17 1525: Lactic Acid 1.5 03/08/17 1317: Urine Color YELLOW, Urine Appearance CLEAR, Urine pH 7.0, Ur Specific [place] 1.010, Urine Protein TRACE H, Urine Ketones NEGATIVE, Urine Blood NEGATIVE, Urine Nitrate NEGATIVE, Urine Bilirubin NEGATIVE, Urine Urobilinogen 0.2, Ur Leukocyte Esterase NEGATIVE, Urine RBC NONE, Urine WBC OCC, Ur Squamous Epith Cells 20-50, Urine Bacteria 2+, Urine Glucose NEGATIVE 03/08/17 1117: Lactic Acid 2.6 H 03/08/17 1117: Sodium 144, Potassium 3.6, Chloride 105, Carbon Dioxide 29, BUN 28 H, Creatinine 1.0, Estimated Creat Clear 60, Estimated GFR (MDRD) 54 L, Glucose 178 H, Calcium 9.3, Total Bilirubin 0.7, AST 25, ALT 35, Alkaline Phosphatase 114, Total Protein 6.5, Albumin 3.0 L, Globulin 3.5 H, Albumin/Globulin Ratio 0.9 L, PT 19.7 H, INR 1.81 H, APTT 28.1, WBC 9.6, RBC 3.78 L, Hgb 12.2, Hct 36.9 L, MCV 97.6, RDW 14.3, Plt Count 228, MPV 7.5, Gran % 89.8 H, Gran # 8.6 H, Total Counted 100, Lymphocytes % 4.7 L, Monocytes % 3.5, Eosinophils % 1.5, Basophils % 0.4, Neutrophils 91 H, Lymphocytes (Manual) 3 L, Lymphocytes # 0.5 L, Monocytes (Manual) 5, Monocytes # 0.3, Eosinophils # 0.2, Eosinophils # ( Manual) 1, Basophils # 0.0, RBC/WBC/PLT Morphology NORMAL, Platelet Estimate NORMAL, PUBS MCHC 33.2, ESR 59 H, MCH 32.4 H Microbiology 03/08 1317 URINE CC: Urine Culture - RECD 03/08 1117 BLOOD: Anaerobic Blood Culture - RECD 03/08 1117 BLOOD: Aerobic Blood Culture - RECD 03/08 1117 BLOOD: Anaerobic Blood Culture - RECD 03/08 1117 BLOOD: Aerobic Blood Culture - RECD Admission vital signs: 1ST Vital Signs Result Date Time Pulse Ox 94 03/08 104 B/P 167/95 03/08 104 Temp 99.4 03/08 104 Pulse 78 03/08 1047 Resp 18 03/08 104 O2 Delivery ROOM AIR 03/08 1552 Exam General appearance: alert, active, awake, no acute distress Eyes: anicteric ENT: mucous membranes moist Neck: normal inspection Cardiovascular: regular rate & rhythm, 1-2+ BLE left > right Respiratory: clear to auscultation, chest non-tender, good air movement ABD: non-distended, normal bowel sounds, no rebound, soft, no tenderness, 2 large hernias lower abdomen Genitourinary: no dysuria, no hematuria Extremities: 1-2+ BLE edema left > right, LLE erythema approx 6 cm prox to knee to ankle, +warmth, approx 5mm open on medial and lateral aspect of lower leg, + purulent drainage, + tenderness, dependent bruising on toes Musculoskeletal: equal muscle strength Skin: no acute rashes, see above Neuro: no deficit, normal mood/affect, oriented, speech clear Plan: Problem List 1. Cellulitis of leg without foot, left Assessment/Plan Continue Vancomycin. Blood culture pending. PT for wound care. 2. Nausea & vomiting Plan: See above at 1702
[2017-03-08 17:18] VITALS: BP 172/74
[2017-03-08 19:15] VITALS: BP 116/61
[2017-03-08 19:59] VITALS: BP 116/61
[2017-03-09 04:00] VITALS: BP 111/60
[2017-03-09 07:30] LABS: HEMOGLOBIN 11.7 g/dL (12.2-16.2); LYMPH # 0.5 K/mm3 (0.7-4.5); LYMPH % 6.1 % (10-50.0)
--- NOTE | 2017-03-09 07:30 | PHARMACY CLINIC NOTE ---
Patient Demographics Patient Demographics Admission date: 03/08/17 Date: 03/09/17 Time: 07 Allergies Coded Allergies: HMG-CoA Reductase Inhibitors (Intermediate, I-RASH 06/09/15) Sulfa (Sulfonamide Antibiotics) (Intermediate, I-HIVES 06/09/15) sumatriptan (Intermediate, I-RASH 06/09/15) morphine (Mild, HALLUCINATIONS 06/09/15) phenylephrine (06/09/15) pseudoephedrine (06/09/15) venom-honey bee (bee venom (honey bee)) (06/09/15) Penicillins (Intermediate, SWELLING/REDNESS @INJECTION SITE 06/09/15) amlodipine (Intermediate, SWELLING OF FEET/ANKLES 06/09/15) dipyridamole (From Aggrenox) (Mild, NA-NAUSEA/VOMITING; HEADACHE 03/18/15) promethazine (Mild, RESTLESSNESS 03/18/15) HEIGHT- FT: 5 IN: 0.00 K.861 VTE General Information Labs: Laboratory Tests 03/09 03/08 0625 1117 Coagulation PT (9.4 - 11.8 SECONDS) 15.7 H 19.7 H INR (0.9 - 1.1) 1.45 H 1.81 H APTT (23.6 - 34.0 SECONDS) 28.1 Hematology Hgb (12.2 - 16.2 g/dL) 12.2 Hct (37.0 - 47.0 %) 36.9 L Plt Count (142 - 424 K/mm3) 228 Disclaimer The following section includes nursing documentation that has been pulled in for pharmacy review. Patient's VTE score: 1 Patient's VTE Risk: VERY LOW RISK Clinical trial participant? No VTE prophylaxis NQF [id number] VTE prophylaxis ordered? Yes Type of prophylaxis/treatment: ICD (AND WARFARIN) at 0729
[2017-03-09 08:00] VITALS: BP 119/59
--- NOTE | 2017-03-09 08:08 | ACUTE CARE PROGRESS NOTE (QUA) ---
Progress Notes Subjective Date 03/09/17 Time 0807 Note Patient continues to have some nausea but feels somewhat better. Cardiopulmonary exam unchanged. Abdomen soft, LEFT leg ulcer continues to have some scant drainage, the redness around the leg ulcer is about the same. Objective Findings Last VS-Temp:98.0 B/P:111/60 Pulse:83 Resp:22 SaO2:90 ROOM AIR Last weight lbs:176 oz:1 K.861 Method:Bed Scales Assessment/Plan Problem List 1. Cellulitis of leg without foot, left 2. Nausea & vomiting Patient condition Improving Plan: continue current care, given failure of outpatient therapy we will continue vancomycin for MRSA cellulitis. PICC line placement today. This inpt stay is expected to cross 2 MNs from start of care Yes at 0807
--- NOTE | 2017-03-09 10:17 | RADIOLOGY REPORT PS360 ---
CHEST PORTABLE-PICC PLACEMENT CLINICAL INDICATION: PICC LINE INSERTION ORDERING PHYSICIAN: Navi Hodgson MD PATIENT AGE: 76 years COMPARISON: 06/09/2015 FINDINGS: Left upper extremity PICC line has been inserted in good position in the region of the superior vena cava. There are low lung volumes. Increased density is present in the left lung base in the retrocardiac region consistent with an area of atelectasis or infiltrate. Normal heart size. IMPRESSION: 1. Good placement of PICC line. 2. Left lower lobe atelectasis and/or infiltrate
[2017-03-09 16:00] VITALS: BP 98/55
[2017-03-09 19:42] VITALS: BP 115/76
[2017-03-09 20:35] VITALS: BP 115/76
[2017-03-10 04:22] VITALS: BP 109/47
--- NOTE | 2017-03-10 07:11 | ACUTE CARE PROGRESS NOTE (QUA) ---
Progress Notes Subjective Date 03/10/17 Time 0709 Note Patient complains of discomfort in the leg. Review of nursing notes shows this is a consistent complaint but patient usually does not request pain medication. She awakens easily this morning. Lungs are clear to auscultation. Heart has a regular rate and rhythm. LEFT leg is bandaged. There is swelling in the distal foot. Foot and ankle are nontender. Mild tenderness along the lower leg laterally with palpation. Continue IV vancomycin. Ambulate patient. Objective Findings Last VS-Temp:98.0 B/P:109/47 Pulse:77 Resp:20 SaO2:99 OXYGEN Last weight lbs:176 oz:1 K.861 Method:Bed Scales Laboratory Tests 03/10/17 0615: POC Glucose 144 H 03/09/17 2035: POC Glucose 158 H 03/09/17 1637: POC Glucose 200 H 03/09/17 1114: POC Glucose 192 H Assessment/Plan Problem List 1. Cellulitis of leg without foot, left 2. Nausea & vomiting Patient condition Stable Plan: continue current care This inpt stay is expected to cross 2 MNs from start of care Yes at 0710
[2017-03-10 07:58] VITALS: BP 109/47
[2017-03-10 08:23] VITALS: BP 96/58
[2017-03-10 16:00] VITALS: BP 111/62
[2017-03-10 19:57] VITALS: BP 87/44
[2017-03-10 21:30] VITALS: BP 108/43
[2017-03-11 05:23] VITALS: BP 108/47
[2017-03-11 08:00] VITALS: BP 92/43
--- NOTE | 2017-03-11 08:34 | ACUTE CARE PROGRESS NOTE (QUA) ---
Progress Notes Subjective Date 03/11/17 Time 0832 Note Patient overall feels slightly better, LEFT leg is now in an Unna boot device. Cardiopulmonary status unchanged, leg distal to the wrapping device is less swollen and red. It is warm and well perfused. Patient does complain of weakness and wobbliness when she gets up out of bed to go to her chair. Objective Findings Last VS-Temp:98.3 B/P:108/47 Pulse:73 Resp:18 SaO2:97 OXYGEN Last weight lbs:176 oz:1 K.861 Method:Bed Scales Assessment/Plan Problem List 1. Cellulitis of leg without foot, left 2. Nausea & vomiting Patient condition Improving Plan: continue current care, continue intravenous vancomycin. PT/OT evaluation to see if patient would benefit from swing bed for ongoing therapy. We will continue IV antibiotics over the weekend, possible swing bed transfer on Tuesday versus continuing therapy and acute care versus home with IV therapy depending on her functional status at that time. This inpt stay is expected to cross 2 MNs from start of care Yes at 0834
[2017-03-11 08:53] VITALS: BP 100/56
--- NOTE | 2017-03-11 13:23 | CONSULT NOTE ---
Pharmacokinetic Consult Date of consult: 03/11/17 Time of consult: 1321 Referring provider: DR. PITTMAN Reason for consult: VANCOMYCIN LEVEL Allergies: Coded Allergies: HMG-CoA Reductase Inhibitors (Intermediate, I-RASH 06/09/15) Sulfa (Sulfonamide Antibiotics) (Intermediate, I-HIVES 06/09/15) sumatriptan (Intermediate, I-RASH 06/09/15) morphine (Mild, HALLUCINATIONS 06/09/15) phenylephrine (06/09/15) pseudoephedrine (06/09/15) venom-honey bee (bee venom (honey bee)) (06/09/15) Penicillins (Intermediate, SWELLING/REDNESS @INJECTION SITE 06/09/15) amlodipine (Intermediate, SWELLING OF FEET/ANKLES 06/09/15) dipyridamole (From Aggrenox) (Mild, NA-NAUSEA/VOMITING; HEADACHE 03/18/15) promethazine (Mild, RESTLESSNESS 03/18/15) Home Medications: Active Scripts Spironolactone (Aldactone) 50 MG PO BIDD #180 TAB Ref 1 Prov: 04/02/15 Reported Medications WARFARIN SOD (Warfarin 2.5MG) 2.5 MG PO MoWeFr WARFARIN SOD (Warfarin 2.5MG) 3.75 MG PO SuTuThSa Minocycline Hcl (Minocycline 100MG. Capsule) 100 MG PO DAILY #20 Budesonide (Budesonide EC) 9 MG PO DAILY Ascorbic Acid (Vitamin C) 500 MG PO DAILY Cyanocobalamin (Vitamin B12) 1,000 MCG PO DAILY Carvedilol (Carvedilol 25MG) 25 MG PO BID Polyvinyl Alcohol (Artificial Tears) 15 ML OP PRN Calcium Polycarbophil (Fibercon) 625 MG PO BID Losartan Potassium (Losartan 100MG) 100 MG PO DAILY Aspirin (Tanya Chewable Aspirin) 81 MG PO DAILY Levothyroxine Sodium (Levothyroxine 0.088MG) 0.088 MG PO DAILY CHOLECALCIFEROL (VITAMIN D3) (Vitamin D) 2,000 IUNITS PO BID B.ANI/L.ACI/L.[place]/L.PLAN/L.SYLVAIN (Probiotic Formula Capsule) 1 CAP PO DAILY Furosemide (Lasix 20MG) 20 MG PO BID SALMETEROL 50/FLUTICASONE 100 (Advair 100-50 Diskus) 1 PUFFS IN BID Ranitidine Hcl (Ranitidine 150MG) 150 MG PO BID Height (feet): 5 Height (inches): 0.00 Medical History: CAD? No Angina: Yes [place]: No Hypertension? Yes Hyperlipidemia? Yes CHF? No DVT? No PE? No COPD? No Asthma? Yes Anemia? No GERD? No Gastric ulcers? No GI Bleed? No Hernia? Yes Thyroid Problems? No Hypothyroidism? No CVA? Yes Seizures? No Diabetes? Yes Insulin Dependent: No Insulin Pump: No Home FSBS? Yes Renal Insuffiency? No UTI? Yes Stones? No BPH? No GB Disease: No Nephritic Syndrome? No Asplenia? No Hepatitis? Yes Sickle Cell Disease? No Arthritis? No Migraines? No Cataracts? Yes Glaucoma? No MRSA? No HIV? No TB? No Anxiety? No Depression? No Cancer? Yes Site: BASAL CELL ON FOREHEAD Labs: Laboratory Tests 03/11/17 1156: POC Glucose 182 H 03/11/17 0650: Sodium 141, Potassium 3.3 L, Chloride 104, Carbon Dioxide 30, BUN 23 H, Creatinine 1.0, Estimated Creat Clear 58, Estimated GFR (MDRD) 54 L, Glucose 152 H, Calcium 8.3 L 03/11/17 0614: POC Glucose 155 H 03/10/17 2127: POC Glucose 194 H 03/10/17 1628: POC Glucose 144 H Problem List: 1. Ulcer of left lower leg Plan: BASED ON PATIENT FACTORS AND VANCOMYCIN TROUGH LEVEL, RECOMMEND CONTINUING CURRENT DOSE OF 1,250MG IV DAILY. PHARMACY WILL CONTINUE TO MONITOR AND ADJUST DOSE APPROPRIATE. at 1329
[2017-03-11 16:00] VITALS: BP 137/73
[2017-03-11 20:00] VITALS: BP 107/60
[2017-03-11 21:30] VITALS: BP 107/60
[2017-03-12 03:47] VITALS: BP 111/57
[2017-03-12 08:00] VITALS: BP 111/56
--- NOTE | 2017-03-12 08:02 | ACUTE CARE PROGRESS NOTE (QUA) ---
Progress Notes Subjective Date 03/12/17 Time 0800 Note Patient has no complaints this morning. She reports some nausea yesterday. She has not been out of bed yet and nursing staff tells me patient has various reasons why she feels like she cannot get out of bed. The Unna boot dressing was changed overnight and it is noted that the wound is healing with less redness. Patient is awake and alert and eating breakfast. Lungs are clear to auscultation. Heart has regular rate and rhythm. On LEFT lower extremity exam there is no erythema above or below the dressing. Patient is neurovascularly intact in the foot Objective Findings Last VS-Temp:97.6 B/P:111/57 Pulse:77 Resp:20 SaO2:96 OXYGEN Last weight lbs:176 oz:1 K.861 Method:Bed Scales Laboratory Tests 03/12/17 0638: PT 27.4 H, INR 2.51 H 03/12/17 0614: POC Glucose 148 H 03/11/17 2058: POC Glucose 161 H 03/11/17 1640: POC Glucose 193 H 03/11/17 1156: POC Glucose 182 H Assessment/Plan Problem List 1. Cellulitis of leg without foot, left 2. Nausea & vomiting Patient condition Improving Plan: continue current care, ambulate This inpt stay is expected to cross 2 MNs from start of care Yes at 0801
--- NOTE | 2017-03-12 12:00 | ACUTE CARE PROGRESS NOTE (QUA) ---
Progress Notes Subjective Date 03/12/17 Time 1200 Assessment/Plan Problem List 1. Cellulitis of leg without foot, left 2. Nausea & vomiting This inpt stay is expected to cross 2 MNs from start of care Yes Antibiotic Stewardship (2) Current Culture Results Microbiology 03/08 1317 URINE CC: Urine Culture - COMP 03/08 1117 BLOOD: Anaerobic Blood Culture - RES 03/08 1117 BLOOD: Aerobic Blood Culture - RES Infxn that will respond? Yes Right drug,dose,and route? Yes More targeted antbx? No at 1200
[2017-03-12 16:17] VITALS: BP 102/45
[2017-03-12 20:00] VITALS: BP 132/53
[2017-03-12 21:15] VITALS: BP 132/53
[2017-03-13 04:00] VITALS: BP 124/50
--- NOTE | 2017-03-13 07:09 | ACUTE CARE PROGRESS NOTE (QUA) ---
Progress Notes Subjective Date 03/13/17 Time 0707 Note Patient did get out of bed and ambulate to the chair yesterday. She remained in the chair for a total of 4 hours. She denies any changes in health. She denies leg pain this morning. Patient is awake and alert. Lungs are clear. Heart has regular rate and rhythm. The LEFT foot seems slightly more swollen today than yesterday. Continue vancomycin for LEFT lower leg wounds. Continue to increase activity Objective Findings Last VS-Temp:97.5 B/P:124/50 Pulse:77 Resp:22 SaO2:96 OXYGEN Last weight lbs:176 oz:1 K.861 Method:Bed Scales Laboratory Tests 03/12/17 2053: POC Glucose 230 H 03/12/17 1627: POC Glucose 167 H 03/12/17 1122: POC Glucose 199 H Assessment/Plan Problem List 1. Cellulitis of leg without foot, left 2. Nausea & vomiting Patient condition Stable Plan: continue current care This inpt stay is expected to cross 2 MNs from start of care Yes at 0708
[2017-03-13 08:00] VITALS: BP 105/46
[2017-03-13 08:26] VITALS: BP 110/50
[2017-03-13 16:00] VITALS: BP 104/48
[2017-03-13 20:00] VITALS: BP 145/76
[2017-03-13 21:15] VITALS: BP 145/76
[2017-03-14 04:00] VITALS: BP 104/59
[2017-03-14 08:00] VITALS: BP 137/57
--- NOTE | 2017-03-14 08:22 | ACUTE CARE PROGRESS NOTE (QUA) ---
Progress Notes Subjective Date 03/14/17 Time 0820 Note Overall patient states that she feels better. Nursing staff through the night was concerned about a possible choking episode with pills but was not duplicated on morning med Pass rounds this morning. Temperature elevation to 100.9 noted, but patient does not feel febrile. Lungs have fairly good air entry, some scattered rhonchi, heart rate regular, abdomen is soft. She is alert, oriented but very weak. Physical therapy notes reviewed. Unna boot remains on LEFT leg, tissue and perfusion surrounding the boot are excellent, and there is no redness. Objective Findings Last VS-Temp:100.9 B/P:104/59 Pulse:80 Resp:24 SaO2:96 OXYGEN Last weight lbs:176 oz:1 [id number] Method:Bed Scales Assessment/Plan Problem List 1. Cellulitis of leg without foot, left 2. Nausea & vomiting Patient condition Stable Plan: continue current care, I'm concerned about this temperature elevation. Check complete blood count this morning, check chest x-ray. Continue antibiotics at this point. She may need [facility] given her PT evaluation and ongoing need for antibiotics. This inpt stay is expected to cross 2 MNs from start of care Yes at 0822
[2017-03-14 08:23] LABS: LYMPH # 0.8 K/mm3 (0.7-4.5); LYMPH % 12.1 % (10-50.0)
[2017-03-14 08:33] LABS: HEMOGLOBIN 8.9 g/dL (12.2-16.2)
--- NOTE | 2017-03-14 11:37 | RADIOLOGY REPORT PS360 ---
CHEST(2 VIEWS-NOT PORTABLE) HISTORY: Fever and cough fever/cough ORDERING PHYSICIAN: Navi Hodgson MD PATIENT AGE: 76 years COMPARISON: 03/09/2017 FINDINGS: There is cardiomegaly with mild pulmonary venous congestion consistent with mild CHF. Left lower lobe consolidation has shown some improvement centrally with some persistent consolidation laterally with small left effusion. Left upper from a PICC line is present with the tip in region of the SVC. There is mild wedging of T5 age-indeterminate. IMPRESSION: 1. Mild CHF which is developed since the previous exam. 2. Slight improvement in left basilar consolidation centrally with persistent consolidation laterally with small left effusion
--- NOTE | 2017-03-14 13:40 | CONSULT NOTE ---
Pharmacokinetic Consult Date of consult: 03/14/17 Time of consult: 5168 Referring provider: DR. COOPER Reason for consult: VANCOMYCIN TROUGH LEVEL Allergies: Coded Allergies: HMG-CoA Reductase Inhibitors (Intermediate, I-RASH 06/09/15) Sulfa (Sulfonamide Antibiotics) (Intermediate, I-HIVES 06/09/15) sumatriptan (Intermediate, I-RASH 06/09/15) morphine (Mild, HALLUCINATIONS 06/09/15) phenylephrine (06/09/15) pseudoephedrine (06/09/15) venom-honey bee (bee venom (honey bee)) (06/09/15) Penicillins (Intermediate, SWELLING/REDNESS @INJECTION SITE 06/09/15) amlodipine (Intermediate, SWELLING OF FEET/ANKLES 06/09/15) dipyridamole (From Aggrenox) (Mild, NA-NAUSEA/VOMITING; HEADACHE 03/18/15) promethazine (Mild, RESTLESSNESS 03/18/15) Home Medications: Active Scripts Spironolactone (Aldactone) 50 MG PO BIDD #180 TAB Ref 1 Prov: 04/02/15 Reported Medications WARFARIN SOD (Warfarin 2.5MG) 2.5 MG PO MoWeFr WARFARIN SOD (Warfarin 2.5MG) 3.75 MG PO SuTuThSa Minocycline Hcl (Minocycline 100MG. Capsule) 100 MG PO DAILY #20 Budesonide (Budesonide EC) 9 MG PO DAILY Ascorbic Acid (Vitamin C) 500 MG PO DAILY Cyanocobalamin (Vitamin B12) 1,000 MCG PO DAILY Carvedilol (Carvedilol 25MG) 25 MG PO BID Polyvinyl Alcohol (Artificial Tears) 15 ML OP PRN Calcium Polycarbophil (Fibercon) 625 MG PO BID Losartan Potassium (Losartan 100MG) 100 MG PO DAILY Aspirin (Tanya Chewable Aspirin) 81 MG PO DAILY Levothyroxine Sodium (Levothyroxine 0.088MG) 0.088 MG PO DAILY CHOLECALCIFEROL (VITAMIN D3) (Vitamin D) 2,000 IUNITS PO BID B.ANI/L.ACI/L.DAYTON/L.PLAN/L.SYLVAIN (Probiotic Formula Capsule) 1 CAP PO DAILY Furosemide (Lasix 20MG) 20 MG PO BID SALMETEROL 50/FLUTICASONE 100 (Advair 100-50 Diskus) 1 PUFFS IN BID Ranitidine Hcl (Ranitidine 150MG) 150 MG PO BID Height (feet): 5 Height (inches): 0.00 Medical History: CAD? No Angina: Yes [place]: No Hypertension? Yes Hyperlipidemia? Yes CHF? No DVT? No PE? No COPD? No Asthma? Yes Anemia? No GERD? No Gastric ulcers? No GI Bleed? No Hernia? Yes Thyroid Problems? No Hypothyroidism? No CVA? Yes Seizures? No Diabetes? Yes Insulin Dependent: No Insulin Pump: No Home FSBS? Yes Renal Insuffiency? No UTI? Yes Stones? No BPH? No GB Disease: No Nephritic Syndrome? No Asplenia? No Hepatitis? Yes Sickle Cell Disease? No Arthritis? No Migraines? No Cataracts? Yes Glaucoma? No MRSA? No HIV? No TB? No Anxiety? No Depression? No Cancer? Yes Site: BASAL CELL ON FOREHEAD Labs: Laboratory Tests 03/14/17 1230: Vancomycin Trough 23.4 H 03/14/17 1132: POC Glucose 294 H 03/14/17 0650: Sodium 137, Potassium 3.1 L, Chloride 102, Carbon Dioxide 27, BUN 28 H, Creatinine 1.5 H, Estimated Creat Clear 39 L, Estimated GFR (MDRD) 34 L, Glucose 151 H, Calcium 9.0, PT 61.2 H, INR 5.57 H, WBC 6.2, RBC 2.76 L, Hgb 8.9 L, Hct 26.4 L, MCV 95.6, RDW 14.6, Plt Count 209, MPV 9.6, Gran % 76.8, Gran # 4.8, Lymphocytes % 12.1, Monocytes % 6.8, Eosinophils % 4.0, Basophils % 0.3, Lymphocytes # 0.8, Monocytes # 0.4, Eosinophils # 0.3, Basophils # 0.0, PUBS MCHC 33.8, MCH 32.3 H 03/14/17 0609: POC Glucose 154 H 03/13/17 2055: POC Glucose 223 H 03/13/17 1631: POC Glucose 210 H Problem List: 1. Cellulitis Plan: BASED ON VANCOMYCIN TROUGH LEVEL, RECOMMEND HOLDING TODAY'S DOSE AND WILL CHANGE INTERVAL TO VANCOMYCIN 1250 MG IV Q36H STARTING TOMORROW. SRCR HAS INCREASED TO 1.5 TODAY. PHARMACY WILL CONTINUE TO MONITOR DAILY AND ADJUST APPROPRIATE. at 1340
[2017-03-14 16:00] VITALS: BP 96/49
[2017-03-14 20:37] VITALS: BP 110/55
[2017-03-15 04:46] VITALS: BP 100/64
[2017-03-15 06:08] LABS: LYMPH # 0.8 K/mm3 (0.7-4.5)
[2017-03-15 07:57] VITALS: BP 100/64
--- NOTE | 2017-03-15 07:57 | DISCHARGE SUMMARY STANDARD ---
Demographics Admit date: 03/08/17 Discharge date: 03/15/17 History of present illness History of present illness 76 year old female with a history of diabetes, CVA and DVT on warfarin therapy presented to the ED with increase in lower extremity pain, swelling and vomiting. Patient has an ongoing history of chronic cellulitis and lymphedema. She is followed by the lymphedema clinic. She was referred to PCP by lymphedema specialist for evaluation of lower extremity cellulitis approximately 2 weeks ago. She was started on Keflex and wound cultures were obtained. Culture was positive for MRSA and she was switched to minocycline a couple of days ago. Patient reports pain has increased and she's become significantly nauseated with vomiting and diarrhea. No fevers. In the ED, White blood cell count was found to be normal. Lower extremity x-rays were negative for acute pathology. Sedimentation rate and C-reactive protein were elevated. Patient was admitted to acute care for IV antibiotics and further evaluation. Hospital Course Hospital Course: Patient was admitted as noted above. Vancomycin was started. Given failure of outpatient therapy it was determined she would need long-term IV antibiotics for this MRSA cellulitis that was complicated by failure of outpatient therapy. Patient was also found to be very weak. PT evaluated her and felt that she would benefit from [facility] evaluation. During the hospitalization she also developed increased INR levels because of concomitant antibiotic therapy and warfarin was held. These have declined with normal levels this morning with an INR of 2.6. Today she feels better but is still weak and requires maximal assistance when she moves around her hospital room. She will be transferred to the [facility] facility for vancomycin/ cefepime IV administration for the next 10 days, as well as ongoing INR monitoring, as well as PT/OT evaluation and therapy for strengthening. Please note she will need complete blood count, BMP and INR level on , March 17. Exam today reveals a pleasant, alert white female who appears frail but improved over admission. Lungs have scattered rhonchi but otherwise clear, heart rate regular, LEFT leg in an Unna boot but the surrounding tissue is much improved vis--vis redness and swelling. She is able to move all extremities well, and has no facial asymmetry. Discharge diagnoses Problem List 1. Cellulitis of leg without foot, left 2. Nausea & vomiting 3. Chronic deep vein thrombosis of lower extremity Status Chronic 4. Obesity (BMI 30.0-34.9) Medications Medications: Discharge meds are as noted. Follow up Follow up in office in: 2 DAYS with: Navi Hodgson MD at 0143
[2017-03-15] MEDS ORDERED: VANCO 1.251.25 GM/15 IV (07:59)
[2017-03-15] MEDS ORDERED: CEFEPIME1 GM/50 ML IV (08:00)
[2017-03-15 08:30] VITALS: BP 99/47
[2017-03-15 09:59] VITALS: BP 99/47
== END 2017-03-15 10:08 | DRG 300 ==
LOC: ER 10:43 → 2ND 13:40 → ER 13:40 → 2ND 15:33
PROVIDERS: Emergency Medicine; Family Medicine; Internal Medicine Adolescent Medicine
DX: I82.502 Chronic embolism and thrombosis of unspecified deep veins of left lower extremity (principal); L03.116 Cellulitis of left lower limb; E11.9 Type 2 diabetes mellitus without complications; I10 Essential (primary) hypertension; Z86.73 Personal history of transient ischemic attack (TIA), and cerebral infarction without residual deficits; Z79.01 Long term (current) use of anticoagulants; I89.0 Lymphedema, not elsewhere classified
CPT/HCPCS: C1751; G0463; J0692; J3370

== ENCOUNTER → 2017-03-08 | Outpatient (CLI) | payer MEDICARE ==
[~2017-03-08] MED LIST changes: +ADVAIR 10028 PUFF/IN IN; +CEFEPIME1 GM/50 ML IV; +LASIX 20MG. TAB20 MG PO; +MINOCYCLINE 10100 MG PO; +RANITIDINE HCL150 MG PO; +VANCO 1.251.25 GM/15 IV
== END ==
LOC: LAB 12:33
DX: L03.116 Cellulitis of left lower limb (principal); L97.922 Non-pressure chronic ulcer of unspecified part of left lower leg with fat layer exposed; Z22.322 Carrier or suspected carrier of Methicillin resistant Staphylococcus aureus

== ENCOUNTER 2017-03-17 08:14 | Emergency (ER) | payer MEDICARE ==
[~2017-03-17] VITALS: Ht 152.4 cm; Wt 77.1 kg
[~2017-03-17 08:14] MED LIST changes: +ADVAIR 10028 PUFF/IN IN; +CEFEPIME1 GM/50 ML IV; +LASIX 20MG. TAB20 MG PO; +MINOCYCLINE 10100 MG PO; +RANITIDINE HCL150 MG PO; +VANCO 1.251.25 GM/15 IV
--- NOTE | 2017-03-17 08:25 | Emergency Room Report ---
History of Present Illness Time Seen by MD Black Presenting Problem in Triage Pt arrived:Ambulance Stretcher Presenting Problem:PT BROUGHT IN FOR AMS Onset of symptoms date/time:/ or onset unknown for:MEDICAL HX UNKNOWN Treatment Prior to Arrival: 181 FSBS PER EMS STAFFING AND SCHEDULING COORDINATOR Provided by:CODING TECHNICIAN Sepsis Risk Assessment: Temp: 97.2 B/P: 103/56 MAP: 71 Pulse: 76 Resp: 18 Recent fever? N Clinical Suspician of Infection? N Mental Status: 2 - Mildly Altered Sepsis Risk:Low Sepsis Risk Have you (or family members/close friends) recently traveled outside the [place]? N If Yes, where/when: Have you had exposure to infectious disease within the past month? N TB? Other? Specify: [place] reports confusion. EMS states she '"feels hot". MAR from [place] shows pt on Vanco and cefepime since 03/15/17. Note from Dr. Hodgson from 03/15/17 indicates antibiotic tx due to cellulitis; patient had elevated INR while hospitalized, and due to need for antibiotic therapy to be continued IV, she was discharged to [facility] on 03/05/17 following an inpatient stay. 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 Source EMS, senior care records, old records Exam Limitations clinical condition (confused) ALLERGIES Coded Allergies: HMG-CoA Reductase Inhibitors (Intermediate, I-RASH 06/09/15) Sulfa (Sulfonamide Antibiotics) (Intermediate, I-HIVES 06/09/15) sumatriptan (Intermediate, I-RASH 06/09/15) morphine (Mild, HALLUCINATIONS 06/09/15) phenylephrine (06/09/15) pseudoephedrine (06/09/15) venom-honey bee (bee venom (honey bee)) (06/09/15) Penicillins (Intermediate, SWELLING/REDNESS @INJECTION SITE 06/09/15) amlodipine (Intermediate, SWELLING OF FEET/ANKLES 06/09/15) dipyridamole (From Aggrenox) (Mild, NA-NAUSEA/VOMITING; HEADACHE 03/18/15) promethazine (Mild, RESTLESSNESS 03/18/15) Home Medications Active Scripts Vancomycin/0.9 % Sod Chloride (Vanco 1.25 Gm/150 Ml-0.9% NaCl) 1.25 GM IV Q36 #5 Prov: 03/15/17 CEFEPIME HCL/DEXTROSE, ISO-OSM (Cefepime 1 Gm Injection) 1 GM IV Q12 #14 ML Prov: 03/15/17 Spironolactone (Aldactone) 50 MG PO BIDD #180 TAB Ref 1 Prov: 04/02/15 Reported Medications Budesonide (Budesonide EC) 9 MG PO DAILY Ascorbic Acid (Vitamin C) 500 MG PO DAILY Cyanocobalamin (Vitamin B12) 1,000 MCG PO DAILY Carvedilol (Carvedilol 25MG) 25 MG PO BID Polyvinyl Alcohol (Artificial Tears) 15 ML OP PRN Calcium Polycarbophil (Fibercon) 625 MG PO BID Losartan Potassium (Losartan 100MG) 100 MG PO DAILY Aspirin (Tanya Chewable Aspirin) 81 MG PO DAILY Levothyroxine Sodium (Levothyroxine 0.088MG) 0.088 MG PO DAILY CHOLECALCIFEROL (VITAMIN D3) (Vitamin D) 2,000 IUNITS PO BID B.ANI/L.ACI/L.DAYTON/L.PLAN/L.SYLVAIN (Probiotic Formula Capsule) 1 CAP PO DAILY Furosemide (Lasix 20MG) 20 MG PO BID SALMETEROL 50/FLUTICASONE 100 (Advair 100-50 Diskus) 1 PUFFS IN BID Ranitidine Hcl (Ranitidine 150MG) 150 MG PO BID Discontinued Reported Medications WARFARIN SOD (Warfarin 2.5MG) 2.5 MG PO MoWeFr WARFARIN SOD (Warfarin 2.5MG) 3.75 MG PO SuTuThSa Minocycline Hcl (Minocycline 100MG. Capsule) 100 MG PO DAILY #20 DC: 03/15/17 0758 History Medical History General CAD? No Angina: Yes [place]: No Hypertension? Yes Hyperlipidemia? Yes CHF? No DVT? No PE? No COPD? No Asthma? Yes Anemia? No GERD? No Gastric ulcers? No GI Bleed? No Hernia? Yes Thyroid Problems? No Hypothyroidism? No CVA? Yes Seizures? No Diabetes? Yes Insulin Dependent: No Insulin Pump: No Home FSBS? Yes Renal Insuffiency? No End Stage Renal Disease? No UTI? Yes Stones? No BPH? No GB Disease: No Nephritic Syndrome? No Asplenia? No Hepatitis? Yes Sickle Cell Disease? No Arthritis? No Migraines? No Cataracts? Yes Glaucoma? No MRSA? No HIV? No TB? No Anxiety? No Depression? No Cancer? Yes Site: BASAL CELL ON FOREHEAD More? No Immunization Hx DT/Tetanus Unknown Flu 2017-18FSN Pneumonia Received In Past Surgical Hx Previous Surgery?Y 3 BLADDER SURGERIES SINUS THYROID BILAT BREAST BX HYSTERECTOMY COMPLETE APPY 2 LAP. PROCED. 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 Physical Exam Vital Signs Vital Signs Date Time Temp Pulse Resp B/P Pulse O2 O2 Flow FiO2 Ox Delivery Rate 03/17 1024 77 18 112/61 97 03/17 0817 97.2 76 18 103/56 98 General Appearance normal appearance (appears ill, confused. ) Eye Exam - bilateral eye normal exam, bilateral eye PERRL, bilateral eye EOMI Ear, Nose, Throat op dry, lips chapped, slightly crusted. Neck normal inspection, non-tender, supple, full range of motion Respiratory Status Yes: trachea midline, chest symmetrical, non tender chest. No: respiratory distress, tender on palpation, use of accessory muscles, pain on inspiration, pain on expiration, productive cough, non productive cough. Lung Sounds bilateral: normal breath sounds, lungs clear, decreased breath sounds. Cardiovascular normal exam, regular rate/rhythm, no gallop, no JVD, no murmur, no rub, normal peripheral pulses Gastrointestinal normal bowel sounds, soft, no organomegaly, no pulsatile mass, hernia (reducible ) Extremities swelling, edematous, cellulitis BLE, left greater than right. , bandages loosened on left, and has two ulcerations to the calf on the left with sanguinous drainage and surround warmth and mild erythema; right lower extremity is quite erythematous, thinks worse than in the past few days. No kit drainage on the right. Strength 4 Upper Ext (L), 4 Upper Ext (R), 4 Lower Ext (L), 4 Lower Ext (R) Neurologic alert, cutter brake lining II-XII nml as tested, Patient confused but nonfocal exam. Glascow Coma Scale Glascow Coma Scale Response Value EYE response: 4 Spontaneously 4 MOTOR response: 6 OBEYS 6 VERBAL response: 4 Disoriented & Converses 4 Total 14 Skin intact, cellulitis described above Medical Decision Making LABS/Meds/Orders Pt receiving controlled substance in ED? No Results/Orders Laboratory Tests 03/17/17 0950: Lactic Acid 1.1 03/17/17 0935: Urine Color YELLOW, Urine Appearance CLEAR, Urine pH 5.5, Ur Specific [place] 1.025, Urine Protein NEGATIVE, Urine Ketones TRACE H, Urine Blood NEGATIVE, Urine Nitrate NEGATIVE, Urine Bilirubin NEGATIVE, Urine Urobilinogen 0.2, Ur Leukocyte Esterase NEGATIVE, Urine RBC NONE, Urine WBC OCC, Ur Squamous Epith Cells NONE, Urine Bacteria 2+, Hyaline Casts OCC, Urine Glucose NEGATIVE 03/17/17 0830: ESR 87 H 03/17/17 0830: Sodium 135 L, Potassium 3.8, Chloride 105, Carbon Dioxide 26, BUN 35 H, Creatinine 1.6 H, Estimated Creat Clear 35 L, Estimated GFR (MDRD) 31 L, Glucose 160 H, Calcium 10.0, Total Bilirubin 0.4, AST 11 L, ALT 19, Alkaline Phosphatase 113, Troponin I < 0.02, Total Protein 4.9 L, Albumin 1.7 L, Globulin 3.2, Albumin/Globulin Ratio 0.5 L, PT 60.6 H, INR 5.52 H, APTT 55.8 *H, WBC 7.6, RBC 2.93 L, Hgb 9.4 L, Hct 28.6 L, MCV 97.8, RDW 14.7, Plt Count 293, MPV 8.1, Gran % 74.1, Gran # 5.6, Lymphocytes % 12.4, Monocytes % 4.7, Eosinophils % 8.6, Basophils % 0.3, Lymphocytes # 0.9, Monocytes # 0.4, Eosinophils # 0.7 H, Basophils # 0.0, PUBS MCHC 32.8, MCH 32.1 H, Random Vancomycin 32.6 Current Medication Orders Sig/Mary Start time Last Medication Dose Route Stop Time Status Admin Lactated Ringer's 1,000 ML .STK-MED ONE 03/17 907 DC IV Lactated Ringer's 1,000 ML .Q10H 11/30 0830 AC 03/17 IV 03/17 Sodium Chloride 10 ML PRN PRN 03/17 830 AC IV 03/18 820 Sodium Chloride 10 ML PRN PRN 03/17 830 AC IV 03/18 0822 Orders Procedure Date/time Status DIET-NOTHING BY MOUTH 03/17 L Active CULTURE, URINE 03/17 935 Active SED RATE 03/17 0845 Complete C-REACTIVE PROTEIN 03/17 845 Complete ELECTROCARDIOGRAM REQUEST 03/[address] HEAD REQ 03/17 822 Complete IV SALINE LOCK 03/17 822 Active CULTURE, BLOOD 03/17 822 Active VANCOMYCIN, RANDOM 03/17 822 Complete URINALYSIS/COMPLETE 03/17 822 Complete TROPONIN I 03/17 822 Complete PARTIAL THROMBOPLASTIN TIME 03/17 822 Complete PROTHROMBIN TIME 03/17 822 Complete LACTIC ACID 03/17 822 Complete FSBS REQUEST BY CARE AREA 03/17 822 Active CBC WITH AUTO DIFF 03/17 822 Complete CHEM 12 PROFILE 03/17 822 Complete 12 LEAD EKG-KENNETH (INITIAL) 03/17 UNK Active CM/EKG CM/EKG EKG rate, rhythm, no evid. of ischemic chgs, normal QRS, compared w/(date of old) (old:Q w, 1 degAVB poor Rw prog) XRAY/CT/US XRAY/CT/US XRAY chest, BLE (intact bone cortex; edema) XR interpretation by reviewed by me (report reviewed) Xray Results abnormal, RUL infiltrate, new per radiology report CT head CT interpretation by reviewed by me (report reviewed) Time results known: 944 CT Results normal/NAD, chronic sinusitis, neg acute per report Consult MD Physician Consult 1 Time Called 0845 Reason Pt. Condition Comments Since patient has just been d/c'd from this facility 03/15/[address] Hodgson regarding extent of w/u and antibiotic therapy given that patient already on Vancomycin and Cefepime. Will continue w/u before initiating any additional antibiotics and will review lab findings w/ Dr. Hodgson once results known. Physician Consult 2 Consult/PCP paged. Laverne, helper coordinator: transfer to ER Dr. Hutchinson. Time Called 1016 Reason Admission Progress ED Progress Notes 1 Date 03/17/17 Time 0946 Comment Awaiting lactate result. ED Progress Notes 2 Date 03/17/17 Time 0959 Comment confirms patient a full code. Patient has mild tachypnea, seems confused. Lactate pending. Receiving LR. ED Progress Notes 3 Date 03/17/17 Time 1034 Comment Patient requesting not to be sent to [place] but had specifically requested to be full code when we spoke earlier. has POA and is speaking with her and another family member about code status. She is quite ill appearing but HDS. Preparing for anticipated transfer at this time unless code status changed as patient considering this option at this time. She is alert enough to verbalize that she is considering returning to [facility] for comfort measures. ED Progress Notes 4 Date 03/17/17 Time 1041 Comment Patient is amenable to transfer to and requesting to remain a full code after discussing options with family. Departure Departure Time of Disposition 1042 Disposition DC/XFER from ER to [facility] Clinical Impression Primary Impression: Confusion Secondary Impressions: Bilateral lower leg cellulitis Elevated INR Right upper lobe pneumonia Qualifiers: Pneumonia type: due to unspecified organism Qualified Code: J18.1 - Lobar pneumonia, unspecified organism Ulcer of left lower leg Qualifiers: Non-pressure ulcer stage: unspecified non-pressure ulcer stage Qualified Code: L97.929 - Non-pressure chronic ulcer of unspecified part of left lower leg with unspecified severity Condition STABLE Referrals Navi Hodgson MD (PCP/Family) ED Critical Care Critical Care Yes Time spent 30-74 min Vital system(s) involved: new onset pneumonia, new onset confusion, recent admission, multiple consults, multiple d/w family and pt for end of life issues. I was present at bedside for Coordinating pt's care, Interpreting EKGs/Strips , During my initial exam, Reviewing lab results, Reviewing old records, Discussing pt condition, For re-examinations, Examining radiographs at 1115
--- NOTE | 2017-03-17 08:25 | Emergency Room Report ---
History of Present Illness Time Seen by MD Black Presenting Problem in Triage Pt arrived:Ambulance Stretcher Presenting Problem:PT BROUGHT IN FOR AMS Onset of symptoms date/time:/ or onset unknown for:MEDICAL HX UNKNOWN Treatment Prior to Arrival: 181 FSBS PER EMS CEMENT PAVER Provided by:HOUSEKEEPING CLEANER Sepsis Risk Assessment: Temp: 97.2 B/P: 103/56 MAP: 71 Pulse: 76 Resp: 18 Recent fever? N Clinical Suspician of Infection? N Mental Status: 2 - Mildly Altered Sepsis Risk:Low Sepsis Risk Have you (or family members/close friends) recently traveled outside the [place]? N If Yes, where/when: Have you had exposure to infectious disease within the past month? N TB? Other? Specify: [place] reports confusion. EMS states she '"feels hot". MAR from [place] shows pt on Vanco and cefepime since 03/15/17. Note from Dr. Hodgson from 03/15/17 indicates antibiotic tx due to cellulitis; patient had elevated INR while hospitalized, and due to need for antibiotic therapy to be continued IV, she was discharged to [facility] on 03/05/17 following an inpatient stay. 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 Source EMS, intermediate records, old records Exam Limitations clinical condition (confused) ALLERGIES Coded Allergies: HMG-CoA Reductase Inhibitors (Intermediate, I-RASH 06/09/15) Sulfa (Sulfonamide Antibiotics) (Intermediate, I-HIVES 06/09/15) sumatriptan (Intermediate, I-RASH 06/09/15) morphine (Mild, HALLUCINATIONS 06/09/15) phenylephrine (06/09/15) pseudoephedrine (06/09/15) venom-honey bee (bee venom (honey bee)) (06/09/15) Penicillins (Intermediate, SWELLING/REDNESS @INJECTION SITE 06/09/15) amlodipine (Intermediate, SWELLING OF FEET/ANKLES 06/09/15) dipyridamole (From Aggrenox) (Mild, NA-NAUSEA/VOMITING; HEADACHE 03/18/15) promethazine (Mild, RESTLESSNESS 03/18/15) Home Medications Active Scripts Vancomycin/0.9 % Sod Chloride (Vanco 1.25 Gm/150 Ml-0.9% NaCl) 1.25 GM IV Q36 #5 Prov: 03/15/17 CEFEPIME HCL/DEXTROSE, ISO-OSM (Cefepime 1 Gm Injection) 1 GM IV Q12 #14 ML Prov: 03/15/17 Spironolactone (Aldactone) 50 MG PO BIDD #180 TAB Ref 1 Prov: 04/02/15 Reported Medications Budesonide (Budesonide EC) 9 MG PO DAILY Ascorbic Acid (Vitamin C) 500 MG PO DAILY Cyanocobalamin (Vitamin B12) 1,000 MCG PO DAILY Carvedilol (Carvedilol 25MG) 25 MG PO BID Polyvinyl Alcohol (Artificial Tears) 15 ML OP PRN Calcium Polycarbophil (Fibercon) 625 MG PO BID Losartan Potassium (Losartan 100MG) 100 MG PO DAILY Aspirin (Tanya Chewable Aspirin) 81 MG PO DAILY Levothyroxine Sodium (Levothyroxine 0.088MG) 0.088 MG PO DAILY CHOLECALCIFEROL (VITAMIN D3) (Vitamin D) 2,000 IUNITS PO BID B.ANI/L.ACI/L.DAYTON/L.PLAN/L.SYLVAIN (Probiotic Formula Capsule) 1 CAP PO DAILY Furosemide (Lasix 20MG) 20 MG PO BID SALMETEROL 50/FLUTICASONE 100 (Advair 100-50 Diskus) 1 PUFFS IN BID Ranitidine Hcl (Ranitidine 150MG) 150 MG PO BID Discontinued Reported Medications WARFARIN SOD (Warfarin 2.5MG) 2.5 MG PO MoWeFr WARFARIN SOD (Warfarin 2.5MG) 3.75 MG PO SuTuThSa Minocycline Hcl (Minocycline 100MG. Capsule) 100 MG PO DAILY #20 DC: 03/15/17 0758 History Medical History General CAD? No Angina: Yes MA: No Hypertension? Yes Hyperlipidemia? Yes CHF? No DVT? No PE? No COPD? No Asthma? Yes Anemia? No GERD? No Gastric ulcers? No GI Bleed? No Hernia? Yes Thyroid Problems? No Hypothyroidism? No CVA? Yes Seizures? No Diabetes? Yes Insulin Dependent: No Insulin Pump: No Home FSBS? Yes Renal Insuffiency? No End Stage Renal Disease? No UTI? Yes Stones? No BPH? No GB Disease: No Nephritic Syndrome? No Asplenia? No Hepatitis? Yes Sickle Cell Disease? No Arthritis? No Migraines? No Cataracts? Yes Glaucoma? No MRSA? No HIV? No TB? No Anxiety? No Depression? No Cancer? Yes Site: BASAL CELL ON FOREHEAD More? No Immunization Hx DT/Tetanus Unknown Flu 2017-18FSN Pneumonia Received In Past Surgical Hx Previous Surgery?Y 3 BLADDER SURGERIES SINUS THYROID BILAT BREAST BX HYSTERECTOMY COMPLETE APPY 2 LAP. PROCED. 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 MARYAM FILTER PLACED COLOSTOMY R/T RUPTURE COLOSTOMY REVERSAL HERNIA REPAIR [place] teeth extraction EYE SURGERY X 3 Family History Family Hx Diabetes No CAD Yes Hypertension Yes Hyperlipidemia Yes Cancer No TB No Social History Smoking Hx Smoker: Never Smoker Tobacco: No Alcohol Alcohol: No Review of Systems All Other Systems Reviewed and Negative Constitutional see HPI Psychiatric/Neurological see HPI Comment hematocrit 26.4 on 03/14/17. Physical Exam Vital Signs Vital Signs Date Time Temp Pulse Resp B/P Pulse O2 O2 Flow FiO2 Ox Delivery Rate 03/17 1024 77 18 112/61 97 03/17 0817 97.2 76 18 103/56 98 General Appearance normal appearance (appears ill, confused. ) Eye Exam - bilateral eye normal exam, bilateral eye PERRL, bilateral eye EOMI Ear, Nose, Throat op dry, lips chapped, slightly crusted. Neck normal inspection, non-tender, supple, full range of motion Respiratory Status Yes: trachea midline, chest symmetrical, non tender chest. No: respiratory distress, tender on palpation, use of accessory muscles, pain on inspiration, pain on expiration, productive cough, non productive cough. Lung Sounds bilateral: normal breath sounds, lungs clear, decreased breath sounds. Cardiovascular normal exam, regular rate/rhythm, no gallop, no JVD, no murmur, no rub, normal peripheral pulses Gastrointestinal normal bowel sounds, soft, no organomegaly, no pulsatile mass, hernia (reducible ) Extremities swelling, edematous, cellulitis BLE, left greater than right. , bandages loosened on left, and has two ulcerations to the calf on the left with sanguinous drainage and surround warmth and mild erythema; right lower extremity is quite erythematous, thinks worse than in the past few days. No kit drainage on the right. Strength 4 Upper Ext (L), 4 Upper Ext (R), 4 Lower Ext (L), 4 Lower Ext (R) Neurologic alert, counterintelligence/humint specialist II-XII nml as tested, Patient confused but nonfocal exam. Glascow Coma Scale Glascow Coma Scale Response Value EYE response: 4 Spontaneously 4 MOTOR response: 6 OBEYS 6 VERBAL response: 4 Disoriented & Converses 4 Total 14 Skin intact, cellulitis described above Medical Decision Making LABS/Meds/Orders Pt receiving controlled substance in ED? No Results/Orders Laboratory Tests 03/17/17 0950: Lactic Acid 1.1 03/17/17 0935: Urine Color YELLOW, Urine Appearance CLEAR, Urine pH 5.5, Ur Specific [place] 1.025, Urine Protein NEGATIVE, Urine Ketones TRACE H, Urine Blood NEGATIVE, Urine Nitrate NEGATIVE, Urine Bilirubin NEGATIVE, Urine Urobilinogen 0.2, Ur Leukocyte Esterase NEGATIVE, Urine RBC NONE, Urine WBC OCC, Ur Squamous Epith Cells NONE, Urine Bacteria 2+, Hyaline Casts OCC, Urine Glucose NEGATIVE 03/17/17 0830: ESR 87 H 03/17/17 0830: Sodium 135 L, Potassium 3.8, Chloride 105, Carbon Dioxide 26, BUN 35 H, Creatinine 1.6 H, Estimated Creat Clear 35 L, Estimated GFR (MDRD) 31 L, Glucose 160 H, Calcium 10.0, Total Bilirubin 0.4, AST 11 L, ALT 19, Alkaline Phosphatase 113, Troponin I < 0.02, Total Protein 4.9 L, Albumin 1.7 L, Globulin 3.2, Albumin/Globulin Ratio 0.5 L, PT 60.6 H, INR 5.52 H, APTT 55.8 *H, WBC 7.6, RBC 2.93 L, Hgb 9.4 L, Hct 28.6 L, MCV 97.8, RDW 14.7, Plt Count 293, MPV 8.1, Gran % 74.1, Gran # 5.6, Lymphocytes % 12.4, Monocytes % 4.7, Eosinophils % 8.6, Basophils % 0.3, Lymphocytes # 0.9, Monocytes # 0.4, Eosinophils # 0.7 H, Basophils # 0.0, PUBS MCHC 32.8, MCH 32.1 H, Random Vancomycin 32.6 Current Medication Orders Sig/Mary Start time Last Medication Dose Route Stop Time Status Admin Lactated Ringer's 1,000 ML .STK-MED ONE 03/17 907 DC IV Lactated Ringer's 1,000 ML .Q10H 11/30 0830 AC 03/17 IV 03/17 Sodium Chloride 10 ML PRN PRN 03/17 830 AC IV 03/18 820 Sodium Chloride 10 ML PRN PRN 03/17 830 AC IV 03/18 0822 Orders Procedure Date/time Status DIET-NOTHING BY MOUTH 03/17 L Active CULTURE, URINE 03/17 935 Active SED RATE 03/17 0845 Complete C-REACTIVE PROTEIN 03/17 845 Complete ELECTROCARDIOGRAM REQUEST 03/[address] HEAD REQ 03/17 822 Complete IV SALINE LOCK 03/17 822 Active CULTURE, BLOOD 03/17 822 Active VANCOMYCIN, RANDOM 03/17 822 Complete URINALYSIS/COMPLETE 03/17 822 Complete TROPONIN I 03/17 822 Complete PARTIAL THROMBOPLASTIN TIME 03/17 822 Complete PROTHROMBIN TIME 03/17 822 Complete LACTIC ACID 03/17 822 Complete FSBS REQUEST BY CARE AREA 03/17 822 Active CBC WITH AUTO DIFF 03/17 822 Complete CHEM 12 PROFILE 03/17 822 Complete 12 LEAD EKG-KENNETH (INITIAL) 03/17 UNK Active CM/EKG CM/EKG EKG rate, rhythm, no evid. of ischemic chgs, normal QRS, compared w/(date of old) (old:Q w, 1 degAVB poor Rw prog) XRAY/CT/US XRAY/CT/US XRAY chest, BLE (intact bone cortex; edema) XR interpretation by reviewed by me (report reviewed) Xray Results abnormal, RUL infiltrate, new per radiology report CT head CT interpretation by reviewed by me (report reviewed) Time results known: 944 CT Results normal/NAD, chronic sinusitis, neg acute per report Consult MD Physician Consult 1 Time Called 0845 Reason Pt. Condition Comments Since patient has just been d/c'd from this facility 03/15/[address] Hodgson regarding extent of w/u and antibiotic therapy given that patient already on Vancomycin and Cefepime. Will continue w/u before initiating any additional antibiotics and will review lab findings w/ Dr. Hodgson once results known. Physician Consult 2 Consult/PCP paged. [place], rn transfer: transfer to ER Dr. Hutchinson. Time Called 1016 Reason Admission Progress ED Progress Notes 1 Date 03/17/17 Time 0946 Comment Awaiting lactate result. ED Progress Notes 2 Date 03/17/17 Time 0959 Comment confirms patient a full code. Patient has mild tachypnea, seems confused. Lactate pending. Receiving LR. ED Progress Notes 3 Date 03/17/17 Time 1034 Comment Patient requesting not to be sent to [place] but had specifically requested to be full code when we spoke earlier. has POA and is speaking with her and another family member about code status. She is quite ill appearing but HDS. Preparing for anticipated transfer at this time unless code status changed as patient considering this option at this time. She is alert enough to verbalize that she is considering returning to [facility] for comfort measures. ED Progress Notes 4 Date 03/17/17 Time 1041 Comment Patient is amenable to transfer to and requesting to remain a full code after discussing options with family. Departure Departure Time of Disposition 1042 Disposition DC/XFER from ER to [facility] Clinical Impression Primary Impression: Confusion Secondary Impressions: Bilateral lower leg cellulitis Elevated INR Right upper lobe pneumonia Qualifiers: Pneumonia type: due to unspecified organism Qualified Code: J18.1 - Lobar pneumonia, unspecified organism Ulcer of left lower leg Qualifiers: Non-pressure ulcer stage: unspecified non-pressure ulcer stage Qualified Code: L97.929 - Non-pressure chronic ulcer of unspecified part of left lower leg with unspecified severity Condition STABLE Referrals Navi Hodgson MD (PCP/Family) ED Critical Care Critical Care Yes Time spent 30-74 min Vital system(s) involved: new onset pneumonia, new onset confusion, recent admission, multiple consults, multiple d/w family and pt for end of life issues. I was present at bedside for Coordinating pt's care, Interpreting EKGs/Strips , During my initial exam, Reviewing lab results, Reviewing old records, Discussing pt condition, For re-examinations, Examining radiographs at 1115
[2017-03-17 08:39] LABS: HEMOGLOBIN 9.4 g/dL (12.2-16.2); LYMPH # 0.9 K/mm3 (0.7-4.5); LYMPH % 12.4 % (10-50.0)
--- OUTSIDE RECORDS SUMMARY | 2017-03-17 08:40 | External Medical Summary Rpt | CCD ---
Author Author , MARYAN STEINBERG Address Unknown Phone [email or web address] Care Team Providers Care Circulation Tender Name Role Phone Ernesto Lomeli MD, Unavailable Unavailable Ernesto Mancini MD, Unavailable Unavailable Karo Mancini MD Purpose Continuity of Care Document - 07-05-2012 through 2016 Problems Code Diagnosis DOS Provider Status 244.0 244.0 04-09-2013 [place] POSTSURGICA [facility] HYPOTHYROID 244.9 244.9 04-09-2013 [place] HYPOTHYROID [facility] IS NOS Hospital 272.4 272.4 04-09-2013 [place] HYPERLIPIDE [facility] NEC/NOS Hospital 401.9 401.9 04-09-2013 [place] HYPERTENSIO [facility] N [facility] Hospital 424.0 424.0 04-09-2013 [place] 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 493.90 493.90 04-09-2013 [place] ASTHMA, [facility] UNSPECIFIED Hospital 564.1 564.1 04-09-2013 [place] 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 715.90 715.90 04-09-2013 [place] OSTEOARTHRO [facility] S [facility] NOS-UNSPEC 784.7 784.7 04-09-2013 [place] EPISTAXIS [facility] V12.51 V12.51 04-09-2013 [place] HX-VENOUS [facility] THROMBOSIS& Hospital EMBOLISM V58.61 V58.61 04-09-2013 [place] ANTICOAGULA [facility] NTS,LT,[facility] ENT USE V58.69 V58.69 OTH 04-09-2013 [place] MED,LT,[facility] ENT USE Hospital 356.9 356.9 IDIO 07-07-2012 [place] PERIPH [facility] NEURPTHY [facility] NOS 435.9 435.9 TRANS 07-07-2012 [place] CEREB [facility] ISCHEMIA Hospital NOS 496 496 [facility] 07-07-2012 [place] AIRWAY [facility] OBSTRUCT [facility] NEC 573.3 573.3 07-07-2012 [place] HEPATITIS [facility] NOS Hospital 625.6 625.6 FEM 07-07-2012 [place] STRESS [facility] INCONTINENC [facility] E 729.81 729.81 07-07-2012 [place] SWELLING OF [facility] LIMB [facility] 599.0 599.71 786.05 L03.115 CELLULITIS OF RIGHT LOWER LIMB L03.116 CELLULITIS OF LEFT LOWER LIMB L97.929 NON-PRS CHRONIC ULC UNSP PRT OF L LOW LEG W UNSP SEVERITY R11.2 NAUSEA WITH VOMITING, UNSPECIFIED R79.89 OTHER SPECIFIED ABNORMAL FINDINGS OF BLOOD CHEMISTRY V58.81 Allergies, Adverse Reactions, Alerts Type Allergy [...] 00 12 0 No TA 40 -2 TX 99 2- Lo N 15 20 ng [...] TH 74 -2 YL 60 2- Lo TN 00 20 ng ED 10 13 er [...] TH 74 -2 YL 60 1- Lo TN 00 20 ng ED 10 13 er [...] Ac ti MG ve TA BL ET TN 51 03 2 No AV 07 -2 [...] Order Detail nces retati t Range on Comprehensive metabolic panel (03-16-2017 15:00) Protein = 4.6 6.4-8.2 complet total 017 gm/dL ed ser/scotty 15:00 s ALT = 23 12-78 complet (SGPT) 017 U/L ed ser/scotty 15:00 s Serum = 14 15-37 complet or 017 U/L ed plasma 15:00 asparta te aminotr ansfera Serum = 138 136-145 complet sodium 017 mmoL/L ed measure 15:00 ment Serum = 4.2 3.5-5.1 complet potassi 017 mmoL/L ed um 15:00 measure ment Serum = 249 74-106 complet or 017 mg/dL ed plasma 15:00 glucose measure ment (mas Serum = 2.8 1.3-3.2 complet globuli 017 gm/dL ed n 15:00 measure ment (mass/v olume) Estimat = 29 59- complet ed 017 ML/MIN ed glomeru 15:00 lar filtrat ion rate (GF Comment: REFERENCE RANGE: >60 ML/MIN/1.73 SQUARE METERS Comment: If this patient is -[place] Citizen, then multiply the Comment: result by 1.210. Serum 2 = 1.7 0.55-1. complet or 017 mg/dL 02 ed plasma 15:00 creatin ine measure ment ( Carbon = 26 21.0-32 complet dioxide 017 mmoL/L .0 ed 15:00 measure ment Serum = 103 98-107 complet or 017 mmoL/L ed plasma 15:00 chlorid e measure ment (mo Serum = 10.0 8.5-10. complet or 017 mg/dL 1 ed plasma 15:00 calcium measure ment (mas Serum = 36 7-18 complet or 017 mg/dL ed plasma 15:00 urea nitroge n measure men Serum = 0.5 0.2-1.0 complet or 017 mg/dL ed plasma 15:00 total bilirub in measure m Serum = 119 46-116 complet or 017 U/L ed plasma 15:00 alkalin e phospha tase laura Serum = 1.8 3.4-5.0 complet or 017 gm/dL ed plasma 15:00 albumin measure ment (mas Serum = 0.6 1.1-1.8 complet or 017 ed plasma 15:00 albumin /globul in mass ra CBC w auto diff (03-16-2017 15:00) Blood = 6.9 4.8-10. complet leukocy 017 K/MM3 8 ed bala 15:00 count (number /volume ) Automat = 14.4 11.5-17 complet ed 017 % .5 ed erythro 15:00 cyte distrib ution width Red = 2.85 4.2-5.4 complet blood 017 M/mm3 ed cell 15:00 count Blood = 323 142-424 complet platele 017 K/mm3 ed t count 15:00 Automat = 9.0 7.4-10. complet ed 017 fl 4 ed blood 15:00 platele t mean volume laura [place] % = 6.2 % 1.7-9.3 complet 017 ed 15:00 Absolut = 0.4 0.1-1.0 complet e 017 K/mm3 ed monocyt 15:00 e count Automat = 95.2 82.2-97 complet ed 017 fl .8 ed erythro 15:00 cyte mean corpusc ular v Automat = 34.7 31.8-35 complet ed 017 g/dl .4 ed erythro 15:00 cyte mean corpusc ular h Mean = 33.1 27-31.2 complet corpusc 017 pg ed ular 15:00 hemoglo bin (MCH) determ Lymphoc = 10.8 10-50.0 complet yte 017 % ed count, 15:00 blood, automat ed Absolut = 0.7 0.7-4.5 complet e 017 K/mm3 ed lymphoc 15:00 yte count Blood = 9.4 12.2-16 complet hemoglo 017 g/dL .2 ed bin 15:00 measure ment (mass/v olum Blood = 27.2 37.0-47 complet hematoc 017 % .0 ed rit 15:00 (volume fractio n) Granulo = 74.0 37.0-80 complet cyte 017 % .0 ed percent 15:00 age Blood = 5.1 1.8-7.8 complet granulo 017 K/mm3 ed cytes 15:00 automat ed count (numb Automat = 8.7 % 0.1-12. complet ed 017 0 ed blood 15:00 eosinop hils/10 0 leukocy t Automat = 0.6 0.0-0.4 complet ed 017 K/mm3 ed blood 15:00 eosinop hil count Baso % = 0.3 % 0.1-2.0 complet 017 ed 15:00 Automat = 0.0 0-0.2 complet ed 017 K/MM3 ed blood 15:00 basophi l count (count/ vo Glucose capillary blood glucometer (03-15-2017 06:43) Glucose = 167 70-110 complet 017 mg/dl ed capilla 06:[address] CBC w auto diff (03-15-2017 05:45) Automat = 0.0 0-0.2 complet ed 017 K/MM3 ed blood 05:45 basophi l count (count/ vo Baso % = 0.2 % 0.1-2.0 complet 017 ed 05:45 Automat = 0.3 0.0-0.4 complet ed 017 K/mm3 ed blood 05:45 eosinop hil count Automat = 5.7 % 0.1-12. complet ed 017 0 ed blood 05:45 eosinop hils/10 0 leukocy t Blood = 4.3 1.8-7.8 complet granulo 017 K/mm3 ed cytes 05:45 automat ed count (numb Automat = 14.5 11.5-17 complet ed 017 % .5 ed erythro 05:45 cyte distrib ution width Blood = 5.9 4.8-10. complet leukocy 017 K/MM3 8 ed bala 05:45 count (number /volume ) Granulo = 72.7 37.0-80 complet cyte 017 % .0 ed percent 05:45 age Blood = 27.0 37.0-47 complet hematoc 017 % .0 ed rit 05:45 (volume fractio n) Blood = 9.0 12.2-16 complet hemoglo 017 g/dL .2 ed bin 05:45 measure ment (mass/v olum Absolut = 0.8 0.7-4.5 complet e 017 K/mm3 ed lymphoc 05:45 yte count Lymphoc = 13.0 10-50.0 complet yte 017 % ed count, 05:45 blood, automat ed Mean = 32.0 27-31.2 complet corpusc 017 pg ed ular 05:45 hemoglo bin (MCH) determ Automat = 33.3 31.8-35 complet ed 017 g/dl .4 ed erythro 05:45 cyte mean corpusc ular h Automat = 96.3 82.2-97 complet ed 017 fl .8 ed erythro 05:45 cyte mean corpusc ular v Absolut = 0.5 0.1-1.0 complet e 017 K/mm3 ed monocyt 05:45 e count [place] % = 8.4 % 1.7-9.3 complet 017 ed 05:45 Automat = 8.5 7.4-10. complet ed 017 fl 4 ed blood 05:45 platele t mean volume laura Red = 2.80 4.2-5.4 complet blood 017 M/mm3 ed cell 05:45 count Blood = 278 142-424 complet platele 017 K/mm3 ed t count 05:45 Comprehensive metabolic panel (03-15-2017 05:45) Serum = 1.6 3.4-5.0 complet or 017 gm/dL ed plasma 05:45 albumin measure ment (mas Serum = 110 46-116 complet or 017 U/L ed plasma 05:45 alkalin e phospha tase laura Serum = 0.5 0.2-1.0 complet or 017 mg/dL ed plasma 05:45 total bilirub in measure m Serum = 9.5 8.5-10. complet or 017 mg/dL 1 ed plasma 05:45 calcium measure ment (mas Serum = 105 98-107 complet or 017 mmoL/L ed plasma 05:45 chlorid e measure ment (mo Carbon = 26 21.0-32 complet dioxide 017 mmoL/L .0 ed 05:45 measure ment Serum = 1.6 0.55-1. complet or 017 mg/dL 02 ed plasma 05:45 creatin ine measure ment ( Serum = 14 15-37 complet or 017 U/L ed plasma 05:45 asparta te aminotr ansfera ALT = 21 12-78 complet (SGPT) 017 U/L ed ser/scotty 05:45 s Protein = 4.8 6.4-8.2 complet total 017 gm/dL ed ser/scotty 05:45 s Serum = 0.5 1.1-1.8 complet or 017 ed plasma 05:45 albumin /globul in mass ra Serum = 30 7-18 complet or 017 mg/dL ed plasma 05:45 urea nitroge n measure men Estimat = 36 50-200 complet ion of 017 ML/MIN ed creatin 05:45 ine renal clearan ce Estimat = 31 59- complet ed 017 ML/MIN ed glomeru 05:45 lar filtrat ion rate (GF Comment: REFERENCE RANGE: >60 ML/MIN/1.73 SQUARE METERS Comment: If this patient is -[place] Citizen, then multiply the Comment: result by 1.210. Serum = 3.2 1.3-3.2 complet globuli 017 gm/dL ed n 05:45 measure ment (mass/v olume) Serum = 160 74-106 complet or 017 mg/dL ed plasma 05:45 glucose measure ment (mas Serum = 3.6 3.5-5.1 complet potassi 017 mmoL/L ed um 05:45 measure ment Serum = 139 136-145 complet sodium 017 mmoL/L ed measure 05:45 ment PT amp; PTT (prothrombin time and parti (03-15-2017 05:45) Activat = 55.8 23.6-34 complet ed 017 SECONDS .0 ed partial 05:45 thrombo plastin time (a Comment: CALLED TO TEMO Lee Comment: RESULTS CALLED TO PHARMACIST: 03/15/17 0620 Comment: Naida Arrington Prothro = 72.6 9.4-11. complet mbin 017 SECONDS 8 ed time 05:45 (PT) in platele t poor p Comment: NOTIFICATION RESULT Whole = 6.60 0.9-1.1 complet blood 017 ed INR 05:45 measure ment Comment: NOTIFICATION RESULT Comment: INDICATION INR RANGE Comment: Comment: THERAPY FOR DVT, PE, ATRIAL FIB; 2.0 - 3.0 Comment: PROPHYLAXIS FOR VTE Comment: Comment: THERAPY FOR MECHANICAL HEART 2.5 - 3.5 Comment: VALVE; PREVENTION OF SYSTEMIC Comment: EMBOLISM SECONDARY TO AMI Glucose capillary blood glucometer (03-14-2017 21:52) Glucose = 221 70-110 complet 017 mg/dl ed capilla 21:[address] Glucose capillary blood glucometer (03-14-2017 17:32) Glucose = 232 70-110 complet 017 mg/dl ed capilla 17:[address] Vancomycin trough (03-14-2017 12:30) Vancomy = 23.4 10.0-20 complet lexie 017 mcg/mL .0 ed trough 12:30 Comment: Comment: RESULTS CALLED TO PHARMACIST: MARYCHUY Comment: 03/14/17 1256 No [place] Glucose capillary blood glucometer (03-14-2017 11:32) Glucose = 294 70-110 complet 017 mg/dl ed capilla 11:[address] CBC w auto diff (03-14-2017 06:50) Automat = 0.0 0-0.2 complet ed 017 K/MM3 ed blood 06:50 basophi l count (count/ vo Blood = 6.2 4.8-10. complet leukocy 017 K/MM3 8 ed bala 06:50 count (number /volume ) Automat = 14.6 11.5-17 complet ed 017 % .5 ed erythro 06:50 cyte distrib ution width Red = 2.76 4.2-5.4 complet blood 017 M/mm3 ed cell 06:50 count Blood = 209 142-424 complet platele 017 K/mm3 ed t count 06:50 Automat = 9.6 7.4-10. complet ed 017 fl 4 ed blood 06:50 platele t mean volume laura [place] % = 6.8 % 1.7-9.3 complet 017 ed 06:50 Absolut = 0.4 0.1-1.0 complet e 017 K/mm3 ed monocyt 06:50 e count Automat = 95.6 82.2-97 complet ed 017 fl .8 ed erythro 06:50 cyte mean corpusc ular v Automat = 33.8 31.8-35 complet ed 017 g/dl .4 ed erythro 06:50 cyte mean corpusc ular h Mean = 32.3 27-31.2 complet corpusc 017 pg ed ular 06:50 hemoglo bin (MCH) determ Blood = 8.9 12.2-16 complet hemoglo 017 g/dL .2 ed bin 06:50 measure ment (mass/v olum Blood = 26.4 37.0-47 complet hematoc 017 % .0 ed rit 06:50 (volume fractio n) Granulo = 76.8 37.0-80 complet cyte 017 % .0 ed percent 06:50 age Blood = 4.8 1.8-7.8 complet granulo 017 K/mm3 ed cytes 06:50 automat ed count (numb Automat = 4.0 % 0.1-12. complet ed 017 0 ed blood 06:50 eosinop hils/10 0 leukocy t Automat = 0.3 0.0-0.4 complet ed 017 K/mm3 ed blood 06:50 eosinop hil count Baso % = 0.3 % 0.1-2.0 complet 017 ed 06:50 Lymphoc = 12.1 10-50.0 complet yte 017 % ed count, 06:50 blood, automat ed Absolut = 0.8 0.7-4.5 complet e 017 K/mm3 ed lymphoc 06:50 yte count Basic metabolic panel (03-14-2017 06:50) Serum = 137 136-145 complet sodium 017 mmoL/L ed measure 06:50 ment Serum = 3.1 3.5-5.1 complet potassi 017 mmoL/L ed um 06:50 measure ment Serum = 151 74-106 complet or 017 mg/dL ed plasma 06:50 glucose measure ment (mas Estimat = 34 59- complet ed 017 ML/MIN ed glomeru 06:50 lar filtrat ion rate (GF Comment: REFERENCE RANGE: >60 ML/MIN/1.73 SQUARE METERS Comment: If this patient is -[place] Citizen, then multiply the Comment: result by 1.210. Estimat = 39 50-200 complet ion of 017 ML/MIN ed creatin 06:50 ine renal clearan ce Serum = 1.5 0.55-1. complet or 017 mg/dL 02 ed plasma 06:50 creatin ine measure ment ( Carbon = 27 21.0-32 complet dioxide 017 mmoL/L .0 ed 06:50 measure ment Serum = 102 98-107 complet or 017 mmoL/L ed plasma 06:50 chlorid e measure ment (mo Serum = 9.0 8.5-10. complet or 017 mg/dL 1 ed plasma 06:50 calcium measure ment (mas Serum = 28 7-18 complet or 017 mg/dL ed plasma 06:50 urea nitroge n measure men Whole blood INR measurement (03-14-2017 06:50) Comment: IS PATIENT ON ANTICOAGULANTS? Y Comment: LIST ANTICOAGULANTS: Comment: COUMADIN Comment: PTT RESULTS MUST BE CALLED IF PT ON HEPARIN!!! Y Prothro = 61.2 9.4-11. complet mbin 017 SECONDS 8 ed time 06:50 (PT) in platele t poor p Comment: NOTIFICATION RESULT Comment: Nevin Whole = 5.57 0.9-1.1 complet blood 017 ed INR 06:50 measure ment Comment: NOTIFICATION RESULT Comment: [place]evin Comment: INDICATION INR RANGE Comment: Comment: THERAPY FOR DVT, PE, ATRIAL FIB; 2.0 - 3.0 Comment: PROPHYLAXIS FOR VTE Comment: Comment: THERAPY FOR MECHANICAL HEART 2.5 - 3.5 Comment: VALVE; PREVENTION OF SYSTEMIC Comment: EMBOLISM SECONDARY TO AMI Glucose capillary blood glucometer (03-14-2017 06:09) Glucose = 154 70-110 complet 017 mg/dl ed capilla 06:[address] Glucose capillary blood glucometer (03-13-2017 20:55) Glucose 03-13-2 = 223 70-110 complet 017 mg/dl ed capilla 20:[address] Glucose capillary blood glucometer (03-13-2017 16:31) Glucose 03-13-2 = 210 70-110 complet 017 mg/dl ed capilla 16:[address] Glucose capillary blood glucometer (03-13-2017 11:29) Glucose 2 = 217 70-110 complet 017 mg/dl ed capilla 11:[address] Glucose capillary blood glucometer (03-13-2017 06:16) Glucose 2 = 160 70-110 complet 017 mg/dl ed capilla 06:[address] Glucose capillary blood glucometer (03-12-2017 20:53) Glucose 2 = 230 70-110 complet 017 mg/dl ed capilla 20:[address] Glucose capillary blood glucometer (03-12-2017 16:27) Glucose 2 = 167 70-110 complet 017 mg/dl ed capilla 16:[address] Glucose capillary blood glucometer (03-12-2017 11:22) Glucose = 199 70-110 complet 017 mg/dl ed capilla 11:[address] Whole blood INR measurement (03-12-2017 06:38) Comment: IS PATIENT ON ANTICOAGULANTS? Y Comment: LIST ANTICOAGULANTS: Comment: WARFARIN Comment: PTT RESULTS MUST BE CALLED IF PT ON HEPARIN!!! Y Prothro = 27.4 9.4-11. complet mbin 017 SECONDS 8 ed time 06:38 (PT) in platele t poor p Whole = 2.51 0.9-1.1 complet blood 017 ed INR 06:38 measure ment Comment: INDICATION INR RANGE Comment: Comment: THERAPY FOR DVT, PE, ATRIAL FIB; 2.0 - 3.0 Comment: PROPHYLAXIS FOR VTE Comment: Comment: THERAPY FOR MECHANICAL HEART 2.5 - 3.5 Comment: VALVE; PREVENTION OF SYSTEMIC Comment: EMBOLISM SECONDARY TO AMI Glucose capillary blood glucometer (03-12-2017 06:14) Glucose 11-25-2 = 148 70-110 complet 017 mg/dl ed capilla 06:[address] Glucose capillary blood glucometer (03-11-2017 20:58) Glucose 03-11-2 = 161 70-110 complet 017 mg/dl ed capilla 20:[address] Glucose capillary blood glucometer (03-11-2017 16:40) Glucose 24-2 = 193 70-110 complet 017 mg/dl ed capilla 16:[address] Glucose capillary blood glucometer (03-11-2017 11:56) Glucose 03-11-2 = 182 70-110 complet 017 mg/dl ed capilla 11:[address] Basic metabolic panel (03-11-2017 06:50) Serum 03-11-2 = 8.3 8.5-10. complet or 017 mg/dL 1 ed plasma 06:50 calcium measure ment (mas Serum 2 = 141 136-145 complet sodium 017 mmoL/L ed measure 06:50 ment Serum 2 = 3.3 3.5-5.1 complet potassi 017 mmoL/L ed um 06:50 measure ment Serum 2 = 152 74-106 complet or 017 mg/dL ed plasma 06:50 glucose measure ment (mas Estimat 2 = 54 59- complet ed 017 ML/MIN ed glomeru 06:50 lar filtrat ion rate (GF Comment: REFERENCE RANGE: >60 ML/MIN/1.73 SQUARE METERS Comment: If this patient is -[place] Citizen, then multiply the Comment: result by 1.210. Estimat 03-11-2 = 58 50-200 complet ion of 017 ML/MIN ed creatin 06:50 ine renal clearan ce Serum 2 = 1.0 0.55-1. complet or 017 mg/dL 02 ed plasma 06:50 creatin ine measure ment ( Carbon 2 = 30 21.0-32 complet dioxide 017 mmoL/L .0 ed 06:50 measure ment Serum 2 = 104 98-107 complet or 017 mmoL/L ed plasma 06:50 chlorid e measure ment (mo Serum 2 = 23 7-18 complet or 017 mg/dL ed plasma 06:50 urea nitroge n measure men Gram negative automated antibiotic susceptibility test (03-11-2017 06:16) Vancomy 11-24-2 <= 0.5 complet lexie 017 ug/ml ed suscept 06:16 ibility test by minimum inhibit ory concent ration Tetracy 11-24-2 <= 1 complet samaniego 017 ug/ml ed suscept 06:16 ibility test by minimum inhibit ory concent ration Trimeth 11-24-2 <= 10 complet oprim/s 017 ug/ml ed ulfamet 06:16 hoxazol e suscept ibility test by minimum inhibit ory concent ration Rifampi 11-24-2 <= 0.5 complet n 017 ug/ml ed suscept 06:16 ibility test by minimum inhibit ory concent ration Penicil 11-24-2 >= 0.5 complet maxime G 017 ug/ml ed suscept 06:16 ibility test by minimum inhibit ory concent ration Oxacill 11-24-2 = 2 complet in 017 ug/ml ed suscept 06:16 ibility test by minimum inhibit ory concent ration Levoflo 11-24-2 <= 0.12 complet xacin 017 ug/ml ed suscept 06:16 ibility test by minimum inhibit ory concent ration Gentami 11-24-2 <= 0.5 complet lexie 017 ug/ml ed suscept 06:16 ibility test by minimum inhibit ory concent ration Nitrofu 11-24-2 <= 16 complet rantoin 017 ug/ml ed 06:16 suscept ibility test by minimum inhibit ory concent ration Erythro 11-24-2 <= 0.5 complet mycin 017 ug/ml ed suscept 06:16 ibility test by minimum inhibit ory concent ration Clindam 11-24-2 <= 0.25 complet ycin 017 ug/ml ed suscept 06:16 ibility test by minimum inhibit ory concent ration Glucose capillary blood glucometer (03-11-2017 06:14) Glucose 03-11-2 = 155 70-110 complet 017 mg/dl ed capilla 06:[address] Glucose capillary blood glucometer (03-10-2017 21:27) Glucose 03-10-2 = 194 70-110 complet 017 mg/dl ed capilla 21:[address] Glucose capillary blood glucometer (03-10-2017 16:28) Glucose 03-10-2 = 144 70-110 complet 017 mg/dl ed capilla 16:[address] Vancomycin trough (03-10-2017 12:55) Vancomy 03-10-2 = 13.2 10.0-20 complet lexie 017 mcg/mL .0 ed trough 12:55 Glucose capillary blood glucometer (03-10-2017 11:32) Glucose 03-10-2 = 159 70-110 complet 017 mg/dl ed capilla 11:[address] Glucose capillary blood glucometer (03-10-2017 06:15) Glucose 03-10-2 = 144 70-110 complet 017 mg/dl ed capilla 06:[address] Glucose capillary blood glucometer (03-09-2017 20:35) Glucose 03-09-2 = 158 70-110 complet 017 mg/dl ed capilla 20:[address] Glucose capillary blood glucometer (03-09-2017 16:37) Glucose 03-09-2 = 200 70-110 complet 017 mg/dl ed capilla 16:[address] Glucose capillary blood glucometer (03-09-2017 11:14) Glucose 03-09-2 = 192 70-110 complet 017 mg/dl ed capilla 11:[address] Basic metabolic panel (03-09-2017 06:25) Serum 03-09-2 = 142 136-145 complet sodium 017 mmoL/L ed measure 06:25 ment Serum 2 = 3.4 3.5-5.1 complet potassi 017 mmoL/L ed um 06:25 measure ment Serum 2 = 195 74-106 complet or 017 mg/dL ed plasma 06:25 glucose measure ment (mas Estimat 03-09-2 = 54 59- complet ed 017 ML/MIN ed glomeru 06:25 lar filtrat ion rate (GF Comment: REFERENCE RANGE: >60 ML/MIN/1.73 SQUARE METERS Comment: If this patient is -[place] Citizen, then multiply the Comment: result by 1.210. Estimat 03-09-2 = 58 50-200 complet ion of 017 ML/MIN ed creatin 06:25 ine renal clearan ce Serum 2 = 1.0 0.55-1. complet or 017 mg/dL 02 ed plasma 06:25 creatin ine measure ment ( Carbon = 29 21.0-32 complet dioxide 017 mmoL/L .0 ed 06:25 measure ment Serum = 104 98-107 complet or 017 mmoL/L ed plasma 06:25 chlorid e measure ment (mo Serum = 9.0 8.5-10. complet or 017 mg/dL 1 ed plasma 06:25 calcium measure ment (mas Serum = 19 7-18 complet or 017 mg/dL ed plasma 06:25 urea nitroge n measure men CBC w auto diff (03-09-2017 06:25) Automat = 98.3 82.2-97 complet ed 017 fl .8 ed erythro 06:25 cyte mean corpusc ular v Automat = 32.6 31.8-35 complet ed 017 g/dl .4 ed erythro 06:25 cyte mean corpusc ular h Mean = 32.1 27-31.2 complet corpusc 017 pg ed ular 06:25 hemoglo bin (MCH) determ Lymphoc = 6.1 % 10-50.0 complet yte 017 ed count, 06:25 blood, automat ed Absolut = 0.5 0.7-4.5 complet e 017 K/mm3 ed lymphoc 06:25 yte count Blood = 11.7 12.2-16 complet hemoglo 017 g/dL .2 ed bin 06:25 measure ment (mass/v olum Blood = 35.9 37.0-47 complet hematoc 017 % .0 ed rit 06:25 (volume fractio n) Granulo = 88.3 37.0-80 complet cyte 017 % .0 ed percent 06:25 age Blood = 7.2 1.8-7.8 complet granulo 017 K/mm3 ed cytes 06:25 automat ed count (numb Automat = 1.7 % 0.1-12. complet ed 017 0 ed blood 06:25 eosinop hils/10 0 leukocy t Automat = 0.1 0.0-0.4 complet ed 017 K/mm3 ed blood 06:25 eosinop hil count Baso % 2 = 0.2 % 0.1-2.0 complet 017 ed 06:25 Automat 03-09-2 = 0.0 0-0.2 complet ed 017 K/MM3 ed blood 06:25 basophi l count (count/ vo Blood = 8.2 4.8-10. complet leukocy 017 K/MM3 8 ed bala 06:25 count (number /volume ) Automat = 14.4 11.5-17 complet ed 017 % .5 ed erythro 06:25 cyte distrib ution width Red = 3.65 4.2-5.4 complet blood 017 M/mm3 ed cell 06:25 count Blood = 185 142-424 complet platele 017 K/mm3 ed t count 06:25 Automat = 8.3 7.4-10. complet ed 017 fl 4 ed blood 06:25 platele t mean volume laura [place] % = 3.8 % 1.7-9.3 complet 017 ed 06:25 Absolut = 0.3 0.1-1.0 complet e 017 K/mm3 ed monocyt 06:25 e count Whole blood INR measurement (03-09-2017 06:25) Comment: IS PATIENT ON ANTICOAGULANTS? Y Comment: LIST ANTICOAGULANTS: Comment: COUMADIN Comment: PTT RESULTS MUST BE CALLED IF PT ON HEPARIN!!! Y Prothro = 15.7 9.4-11. complet mbin 017 SECONDS 8 ed time 06:25 (PT) in platele t poor p Whole = 1.45 0.9-1.1 complet blood 017 ed INR 06:25 measure ment Comment: INDICATION INR RANGE Comment: Comment: THERAPY FOR DVT, PE, ATRIAL FIB; 2.0 - 3.0 Comment: PROPHYLAXIS FOR VTE Comment: Comment: THERAPY FOR MECHANICAL HEART 2.5 - 3.5 Comment: VALVE; PREVENTION OF SYSTEMIC Comment: EMBOLISM SECONDARY TO AMI Glucose capillary blood glucometer (03-09-2017 06:11) Glucose = 210 70-110 complet 017 mg/dl ed capilla 06:[address] Glucose capillary blood glucometer (03-08-2017 20:18) Glucose = 197 70-110 complet 017 mg/dl ed capilla 20:[address] Glucose capillary blood glucometer (03-08-2017 17:13) Glucose = 176 70-110 complet 017 mg/dl ed capilla 17:[address] Lactate ser/plas (03-08-2017 15:25) Lactate = 1.5 0.4-2.0 complet 017 MMOL/L ed ser/scotty 15:25 s Urinalysis with microscopy (03-08-2017 13:17) Urine CLEAR CLEAR complet appeara 017 CLEAR L ed nce 13:17 determi nation Bacteri 2+ 2+ L O complet a 017 ed detecti 13:17 on in urine sedimen t by Urine NEGATIV NEG complet total 017 E ed bilirub 13:17 NEGATIV in E L detecti on by test Urine NEGATIV NEG complet blood 017 E ed detecti 13:17 NEGATIV on E L Urine YELLOW YELLOW complet color 017 YELLOW ed 13:17 L Glucose = NEG complet ur 017 NEGATIV ed test 13:17 E strip Urine NEGATIV NEG complet ketones 017 E ed 13:17 NEGATIV detecti E L on by mg/dL automat ed bala Mucus NEGATIV NEG complet detecti 017 E ed on in 13:17 NEGATIV urine E L sedimen t by lig Urine NEGATIV NEG complet nitrite 017 E ed 13:17 NEGATIV detecti E L on by test strip Urine = 7.0 5.0-8.5 complet pH 017 ed 13:17 Urine = TRACE NEG complet protein 017 mg/dL ed 13:17 measure ment by automat ed t Erythro NONE 0 complet cytes 017 NONE L ed detecti 13:17 rbc/hpf on in urine sedimen t Urine = 1.010 1.005-1 complet specifi 017 .030 ed c 13:17 gravity measure ment [place] 20-50 0-5 complet s 017 20-50 L ed epithel 13:17 #/hpf ial cells detecti on in u Urine 0.2 0.2 NEG complet urobili 017 L ed nogen 13:17 E.U./dL detecti on by test str Urine = OCC O complet leukocy 017 wbc/hpf ed bala 13:17 count (number /volume ) Urinalysis dipstick W Reflex Microscopic panel in Urine (03-08-2017 13:17) Bacteri 2+ O complet a 017 ed [Presen 13:17 ce] in Urine sedimen t by Light microsc opy Erythro NONE 0 complet cytes 017 ed [Presen 13:17 ce] in Urine sedimen t by Light microsc opy Epithel 20-50 0#/hp complet ial 017 f - ed cells.s 13:17 5#/hp quamous f [Presen ce] in Urine sedimen t by Microsc opy high power field Urinalysis dipstick W Reflex Microscopic panel in Urine (03-08-2017 13:17) Appeara CLEAR CLEAR complet nce of 017 ed Urine 13:17 Bilirub NEGATIV NEG complet in 017 E ed [Presen 13:17 ce] in Urine by Test strip Erythro NEGATIV NEG complet cytes 017 E ed [Presen 13:17 ce] in Urine Color YELLOW YELLOW complet of 017 ed Urine 13:17 Ketones NEGATIV NEG complet 017 E ed [Presen 13:17 ce] in Urine by Automat ed test strip Mucus 03-08- NEGATIV NEG complet [Presen 017 E ed ce] in 13:17 Urine sedimen t by Light microsc opy Nitrite NEGATIV NEG complet 017 E ed [Presen 13:17 ce] in Urine by Test strip Urobili 03-08-2 0.2 NEG complet nogen 017 ed [Presen 13:17 ce] in Urine by Test strip Comprehensive metabolic panel (03-08-2017 11:17) Serum 2 = 0.9 1.1-1.8 complet or 017 ed plasma 11:17 albumin /globul in mass ra Serum 2 = 3.0 3.4-5.0 complet or 017 gm/dL ed plasma 11:17 albumin measure ment (mas Serum = 114 46-116 complet or 017 U/L ed plasma 11:17 alkalin e phospha tase laura Serum 03-08-2 = 0.7 0.2-1.0 complet or 017 mg/dL ed plasma 11:17 total bilirub in measure m Serum = 28 7-18 complet or 017 mg/dL ed plasma 11:17 urea nitroge n measure men Serum = 9.3 8.5-10. complet or 017 mg/dL 1 ed plasma 11:17 calcium measure ment (mas Serum = 105 98-107 complet or 017 mmoL/L ed plasma 11:17 chlorid e measure ment (mo Carbon = 29 21.0-32 complet dioxide 017 mmoL/L .0 ed 11:17 measure ment Serum = 1.0 0.55-1. complet or 017 mg/dL 02 ed plasma 11:17 creatin ine measure ment ( Estimat = 60 50-200 complet ion of 017 ML/MIN ed creatin 11:17 ine renal clearan ce Estimat = 54 59- complet ed 017 ML/MIN ed glomeru 11:17 lar filtrat ion rate (GF Comment: REFERENCE RANGE: >60 ML/MIN/1.73 SQUARE METERS Comment: If this patient is -[place] Citizen, then multiply the Comment: result by 1.210. Serum 2 = 3.5 1.3-3.2 complet globuli 017 gm/dL ed n 11:17 measure ment (mass/v olume) Serum = 178 74-106 complet or 017 mg/dL ed plasma 11:17 glucose measure ment (mas Serum = 3.6 3.5-5.1 complet potassi 017 mmoL/L ed um 11:17 measure ment Serum 2 = 144 136-145 complet sodium 017 mmoL/L ed measure 11:17 ment Serum 2 = 25 15-37 complet or 017 U/L ed plasma 11:17 asparta te aminotr ansfera ALT = 35 12-78 complet (SGPT) 017 U/L ed ser/scotty 11:17 s Protein = 6.5 6.4-8.2 complet total 017 gm/dL ed ser/scotty 11:17 s CRP (03-08-2017 11:17) CRP = 3.9 0.0-0.9 complet 017 MG/DL ed 11:17 Whole blood INR measurement (03-08-2017 11:17) Comment: IS PATIENT ON ANTICOAGULANTS? Y Comment: LIST ANTICOAGULANTS: Comment: COUMADIN Comment: PTT RESULTS MUST BE CALLED IF PT ON HEPARIN!!! Y Prothro = 19.7 9.4-11. complet mbin 017 SECONDS 8 ed time 11:17 (PT) in platele t poor p Whole = 1.81 0.9-1.1 complet blood 017 ed INR 11:17 measure ment Comment: INDICATION INR RANGE Comment: Comment: THERAPY FOR DVT, PE, ATRIAL FIB; 2.0 - 3.0 Comment: PROPHYLAXIS FOR VTE Comment: Comment: THERAPY FOR MECHANICAL HEART 2.5 - 3.5 Comment: VALVE; PREVENTION OF SYSTEMIC Comment: EMBOLISM SECONDARY TO AMI Activated partial thromboplastin time (a (03-08-2017 11:17) Comment: IS PATIENT ON ANTICOAGULANTS? Y Comment: LIST ANTICOAGULANTS: Comment: COUMADIN Comment: PTT RESULTS MUST BE CALLED IF PT ON HEPARIN!!! Y Activat = 28.1 23.6-34 complet ed 017 SECONDS .0 ed partial 11:17 thrombo plastin time (a Blood lactic acid measurement (moles/vol (03-08-2017 11:17) Blood = 2.6 0.4-2.0 complet lactic 017 mmol/L ed acid 11:17 measure ment (moles/ vol Comment: An elevated Lactic Acid is suggestive of sepsis and should Comment: be repeated within 6 hours of initial testing. CBC w auto diff (03-08-2017 11:17) Automat = 7.5 7.4-10. complet ed 017 fl 4 ed blood 11:17 platele t mean volume laura Automat = 0.0 0-0.2 complet ed 017 K/MM3 ed blood 11: basophi l count (count/ vo Baso % = 0.4 % 0.1-2.0 complet 017 ed 11:17 Automat = 0.2 0.0-0.4 complet ed 017 K/mm3 ed blood 11: eosinop hil count Automat = 1.5 % 0.1-12. complet ed 017 0 ed blood 11: eosinop hils/10 0 leukocy t Blood = 8.6 1.8-7.8 complet granulo 017 K/mm3 ed cytes 11: automat ed count (numb Granulo = 89.8 37.0-80 complet cyte 017 % .0 ed percent 11: age Blood = 36.9 37.0-47 complet hematoc 017 % .0 ed rit 11:17 (volume fractio n) Blood = 12.2 12.2-16 complet hemoglo 017 g/dL .2 ed bin 11: measure ment (mass/v olum Absolut = 0.5 0.7-4.5 complet e 017 K/mm3 ed lymphoc : yte count Lymphoc = 4.7 % 10-50.0 complet yte 017 ed count, 11:17 blood, automat ed Mean = 32.4 27-31.2 complet corpusc 017 pg ed ular 11: hemoglo bin (MCH) determ Automat = 33.2 31.8-35 complet ed 017 g/dl .4 ed erythro 11:17 cyte mean corpusc ular h Automat = 97.6 82.2-97 complet ed 017 fl .8 ed erythro 11:17 cyte mean corpusc ular v Absolut = 0.3 0.1-1.0 complet e 017 K/mm3 ed monocyt 11:17 e count [place] % = 3.5 % 1.7-9.3 complet 017 ed 11:17 Blood = 228 142-424 complet platele 017 K/mm3 ed t count 11:17 Red = 3.78 4.2-5.4 complet blood 017 M/mm3 ed cell 11:17 count Automat = 14.3 11.5-17 complet ed 017 % .5 ed erythro 11:17 cyte distrib ution width Blood = 9.6 4.8-10. complet leukocy 017 K/MM3 8 ed bala 11:17 count (number /volume ) Differential panel, method unspecified - (03-08-2017 11:17) Manual = 1 % 0-3 complet blood 017 ed eosinop 11:17 hils/10 0 leukocy bala LYMPH 3 % 10-50 complet 017 ed 11:17 Monocyt = 5 % 2-9 complet e % 017 ed 11:17 Platele NORMAL complet t 017 NORMAL ed estimat 11:17 L e Neutrop = 91 % 42-76 complet hil 017 ed count 11:17 RBC NORMAL complet morphol 017 NORMAL ed ogy 11:17 L Blood = 100 complet total 017 #CELLS ed cell 11:17 count Erythrocyte sedimentation rate by tobias (03-08-2017 11:17) Erythro = 59 0-30 complet cyte 017 mm/hr ed sedimen 11:17 tation rate by tobias Differential panel, method unspecified - (03-08-2017 11:17) LYMPH 3 % 10% - Low complet 017 50% ed 11:17 Platele NORMAL complet ts 017 ed [Presen 11:17 ce] in Blood by Light microsc opy Erythro NORMAL complet cyte 017 ed morphol 11:17 ogy finding [Identi fier] in Blood Wound culture (03-08-2017) Wound [id number] complet culture 017 ed Staphyl ococcus aureus SCT SAUR STAPHYL OCOCCUS AUREUS L Wound CULTURE complet culture 017 SWAB ed FROM OUTSIDE LOWER LEFT LEG. Whole blood INR measurement (03-07-2017 11:30) Whole = 2.4 0.9-1.1 complet blood 017 ed INR 11:30 measure ment Comment: Comment: Results sent to: Arm[employer] PRICE,Ernesto August 03/07/17 6043 Comment: Titus Forrester Pharmacist recommendation for Warfarin [...] 017 K/mm3 ed monocyt 10:37 e count [place] % = 6.2 % 1.7-9.3 complet 017 [...] poor p Ammonia measurement (02-28-2017 10:37) Ammonia --2 = 12 19-54 complet 017 umoL/L ed measure 10:37 ment Comprehensive metabolic panel (02-28-2017 10:37) Serum 11-13-2 = 1.0 1.1-1.8 complet or 017 ed plasma 10:37 albumin /globul in mass ra Serum 02-28-2 = 2.8 3.4-5.0 complet or 017 gm/dL ed plasma 10:37 albumin measure ment (mas Serum 02-28-2 = 118 46-116 complet or 017 U/L [...] plasma 10:37 calcium measure ment (mas Serum 02-28-2 = 102 98-107 complet or 017 mmoL/L ed plasma 10:37 chlorid e measure ment (mo Carbon = 27 21.0-32 complet dioxide 017 mmoL/L .0 ed 10:37 measure ment Serum 02-28-2 = 1.1 0.55-1. complet or 017 mg/dL 02 ed plasma 10:37 creatin ine measure ment ( Estimat 02-28-2 = 48 59- complet ed 017 ML/MIN ed glomeru 10:37 lar filtrat ion rate (GF Comment: REFERENCE RANGE: >60 ML/MIN/1.73 SQUARE METERS Comment: If this patient is -[place] Citizen, then multiply the Comment: result by 1.210. Serum 02-28-2 = 2.8 1.3-3.2 complet globuli 017 gm/dL ed n 10:37 measure ment (mass/v olume) Serum 02-28-2 = 147 74-106 complet or 017 mg/dL ed plasma 10:37 glucose measure ment (mas Serum 02-28-2 = 4.7 3.5-5.1 complet potassi 017 mmoL/L [...] p Basic metabolic panel (02-25-2017 11:58) Serum 02-25-2 = 21 7-18 complet or 017 mg/dL [...] SQUARE METERS Comment: If this patient is -[place] Citizen, then multiply the Comment: result by 1.210. Serum 2 = 165 74-106 complet or 017 mg/dL ed plasma 11:58 glucose measure ment (mas Serum 2 = 4.7 3.5-5.1 complet potassi 017 mmoL/L ed um 11:58 measure ment Serum = 138 136-145 complet sodium 017 mmoL/L ed measure 11:58 ment CBC w auto diff (02-25-2017 11:58) Automat 2 = 0.0 0-0.2 complet ed 017 K/MM3 [...] 017 K/mm3 ed monocyt 11:58 e count [place] % = 3.7 % 1.7-9.3 complet 017 ed 11:58 Automat = 8.3 7.4-10. complet ed 017 fl 4 ed blood 11:58 platele t mean volume laura Blood = 185 142-424 complet platele 017 K/mm3 ed t count 11:58 Red --2 = 3.44 4.2-5.4 complet blood 017 M/mm3 ed cell 11:58 count Automat 2 = 13.9 11.5-17 complet ed 017 % .5 ed erythro 11:58 cyte distrib ution width Blood = 12.1 4.8-10. complet leukocy 017 K/MM3 8 ed bala 11:58 count (number /volume ) Differential panel, method unspecified - (02-25-2017 11:58) Automat -10-2 = 9 % 0-8 complet ed 017 ed blood 11:58 band neutrop hil percent a LYMPH 02-25-2 4 % 10-50 complet 017 ed 11:58 Monocyt 02-25-2 = 2 % 2-9 complet e % 017 ed 11:58 Platele NORMAL complet t 017 NORMAL ed estimat 11:58 L e Neutrop = 85 % 42-76 complet hil 017 ed count 11:58 Blood = 100 complet total 017 #CELLS ed cell 11:58 count Differential panel, method unspecified - (02-25-2017 11:58) LYMPH 02-25-2 4 % 10% - Low complet 017 50% ed 11:58 Platele 02-25-2 NORMAL complet ts 017 ed [Presen 11:58 ce] in Blood by Light microsc opy Bacterial body fluid culture (02-25-2017) Bacteri 11-10-2 GRAM complet al body 017 STAIN- ed fluid culture Bacteri 1110-2 MODERAT complet al body 017 E GRAM ed fluid POSITIV culture E COCCI Bacteri 11-10-2 <10 complet al body 017 EPI'S ed fluid culture Bacteri 11-10-2 <10 complet al body 017 WBCS ed fluid culture Bacteri 11-10-2 [id number] complet al body 017 ed fluid Staphyl culture ococcus aureus SCT SAUR STAPHYL OCOCCUS AUREUS L Whole blood INR measurement (02-14-2017 10:20) Whole 2 = 2.4 0.9-1.1 complet blood 017 ed INR 10:20 measure ment Comment: Comment: Results sent to: Ernesto Lomeli MD 02/14/17 1033 Comment: Titus Forrester Pharmacist recommendation for Warfarin [...] Glucose 98 74-106 complet 013 mg/dL ed Bld-n 06:15 c BUN 15 7-18 complet Bld-mCn [...] K/MM3 8 ed Auto 06:15 RBC # 3.86 4.2-5.4 complet Bld 013 M/mm3 ed [...] complet Auto 013 .5 ed 06:15 Platele 12-21-2 191 142-424 complet t Bld 013 K/mm3 ed Ql 06:15 Manual MEAN 04-07-2 7.3 fl 7.4-10. complet PLATELE 013 4 ed T 06:15 VOLUME Granulo 04-07-2 57.4 % 37.0-80 complet cytes 013 .0 ed Fr Bld 06:15 Auto LYMPH % 04-07-2 34.4 % 10-50.0 complet 013 ed 06:15 Monocyt 04-07-2 5.8 % 1.7-9.3 complet es Fr 013 ed Bld 06:15 Auto Eosinop 04-07-2 2.1 % 0.1-12. complet hil Fr 013 0 ed Bld 06:15 Auto Basophi 04-07-2 0.2 % 0.1-2.0 complet ls Fr 013 ed Bld 06:15 Auto Granulo 04-07-2 3.7 1.8-7.8 complet cytes # 013 K/mm3 ed Bld 06:15 Auto Lymphoc 04-07-2 2.2 0.7-4.5 complet ytes Fr 013 K/mm3 ed Bld 06:15 Auto Monocyt 04-07-2 0.4 0.1-1.0 complet es # 013 K/mm3 ed Bld 06:15 Auto Eosinop 04-07-2 0.1 0.0-0.4 complet hil # 013 K/mm3 [...] 013 mmoL/L ed SerPl-s 23:30 Cnc Chlorid 04-06- 105 98-107 complet e 013 mmoL/L ed SerPl-s 23:30 Cnc CO2 04-06- 29 21.0-32 complet SerPl-s 013 mmoL/L .0 ed Cnc 23:30 Calcium 20-2 8.2 8.5-10. complet 013 mg/dL 1 ed SerPl-m 23:30 Cnc CBC with AUTO DIFF (04-06-2013 23:30) WBC # 12-20-2 7.7 4.8-10. complet Bld 013 K/MM3 8 ed Auto 23:30 RBC # 20-2 4.34 4.2-5.4 complet Bld 013 M/mm3 ed Auto 23:30 Hgb 20-2 13.5 12.2-16 complet Bld-mCn 013 g/dL .2 ed c 23:30 Hct Fr 04-06- 40.1 % 37.0-47 complet Bld 013 .0 ed 23:30 MCV RBC 04-06-2 92.6 fl 82.2-97 complet 013 .8 ed 23:30 MCH RBC 04-06-2 31.1 pg 27-31.2 complet Qn 013 ed Auto 23:30 MEAN 04-06-2 33.6 31.8-35 complet CORPUSC 013 g/dl .4 ed ULAR 23:30 HGB CONC RDW RBC 20-2 14.9 % 11.5-17 complet Auto 013 .5 ed 23:30 Platele 04-06-2 226 142-424 complet t Bld 013 K/mm3 ed Ql 23:30 Manual MEAN 20-2 7.2 fl 7.4-10. complet PLATELE 013 4 ed T 23:30 VOLUME Granulo 20-2 60.1 % 37.0-80 complet cytes 013 .0 ed Fr Bld 23:30 Auto LYMPH % -20-2 30.7 % 10-50.0 complet 013 ed 23:30 Monocyt 12-20-2 7.0 % 1.7-9.3 complet es Fr 013 ed Bld 23:30 Auto Eosinop -20-2 1.9 % 0.1-12. complet hil Fr 013 0 ed Bld 23:30 Auto Basophi 12-20-2 0.2 % 0.1-2.0 complet ls Fr 013 ed Bld 23:30 Auto Granulo -20-2 4.6 1.8-7.8 complet cytes # 013 K/mm3 ed Bld 23:30 Auto Lymphoc -20-2 2.4 0.7-4.5 complet ytes Fr 013 K/mm3 ed Bld 23:30 Auto Monocyt 20-2 0.5 0.1-1.0 complet es # 013 K/mm3 ed Bld 23:30 Auto Eosinop -20-2 0.2 0.0-0.4 complet hil # 013 K/mm3 ed Bld 23:30 Auto Basophi 20-2 0.0 0-0.2 complet ls # 013 K/MM3 ed Bld 23:30 Auto PROTIME/INR (04-06-2013 20:50) PROTHRO -20-2 19.9 9.9-11. complet MBIN 013 SECONDS 6 ed TIME 20:50 INR Bld 04-06-2 1.85 0.9-1.1 complet 013 UNK ed 20:50 INR BldC (04-06-2013 11:00) INR 20-2 2.0 UNK 0.9-1.1 complet BldC 013 ed 11:00 PROTIME/INR (02-04-2013 15:00) PROTHRO 20-2 19.7 9.9-11. complet MBIN 013 SECONDS 6 ed TIME 15:00 INR Bld 02-04-2 1.83 0.9-1.1 complet 013 UNK ed 15:00 URINALYSIS/COMPLETE (02-04-2013 14:00) URINE 20-2 DARK YELLOW complet COLOR 013 YELLOW ed 14:00 URINE 20-2 Cloudy CLEAR complet APPEARA 013 ed NCE 14:00 URINE 02-04-2 NEGATIV NEG complet GLUCOSE 013 E ed - 14:00 DIPSTIC K URINE 02-04-2 NEGATIV NEG complet BILIRUB 013 E ed IN - 14:00 DIPSTIC K URINE 20-2 TRACE NEG complet KETONE 013 mg/dL ed 14:00 URINE 02-04-2 Greater 1.005-1 complet SPECIFI 013 than .030 ed C 14:00 or GRAVITY equal to 1.030 URINE 02-04-2 3+ NEG complet BLOOD 013 ed 14:00 URINE 02-04-2 6.0 UNK 5.0-8.5 complet PH 013 ed 14:00 URINE 02-04-2 1+ NEG complet PROTEIN 013 mg/dL ed - 14:00 DIPSTIC K URINE 02-04-2 0.2 NEG complet UROBILI 013 E.U./dL ed NOGEN - 14:00 DIPSTIC K URINE NEGATIV NEG complet NITRATE 013 E ed - 14:00 DIPSTIC K URINE 2 2+ NEG complet LEUK 013 ed ESTERAS 14:00 E URINE 2 TNTC 0 complet RBC 013 rbc/hpf ed [...] SerPl-m 10:00 Cnc PROTIME/INR (07-07-2012 10:00) PROTHRO 03-22-2 15.2 9.8-11. complet MBIN 013 SECONDS 0 [...] ed IN - 15:12 DIPSTIC K URINE 20-2 NEGATIV NEG complet KETONE 013 E mg/dL ed 15:12 URINE 20-2 1.020 1.005-1 complet SPECIFI 013 UNK .030 ed C 15:12 GRAVITY URINE 07-05-2 NEGATIV NEG complet BLOOD 013 E ed 15:12 URINE 07-05-2 6.0 UNK 5.0-8.5 complet PH 013 ed 15:12 URINE 20-2 NEGATIV NEG complet PROTEIN 013 E mg/dL ed - 15:12 DIPSTIC K URINE 07-05-2 0.2 NEG complet UROBILI 013 E.U./dL ed NOGEN - 15:12 DIPSTIC K URINE NEGATIV NEG complet NITRATE 013 E ed - 15:12 DIPSTIC K URINE 07-05- NEGATIV NEG complet LEUK 013 E ed ESTERAS 15:12 E URINE 07-05- 3-5 0-5 complet SQUAMOU 013 #/hpf ed S CELLS 15:12 URINE TRACE O complet BACTERI 013 ed A 15:12 PROTIME/INR (07-05-2012 14:17) PROTHRO 07-05- 14.0 9.8-11. complet MBIN 013 SECONDS 0 [...] (ESTIMA 013 ML/MIN ed DWAYNE) 13:50 Sodium 07-05- 141 136-145 complet SerPl-s 013 mmoL/L ed Cnc 13:50 Potassi 4.0 3.5-5.1 complet um 013 mmoL/L ed SerPl-s 13:50 Cnc Chlorid 107 98-107 complet e 013 mmoL/L ed SerPl-s 13:50 Cnc CO2 07-05- 28 21.0-32 complet SerPl-s 013 mmoL/L .0 ed Cnc 13:50 Calcium 07-05- 8.8 8.5-10. complet 013 mg/dL 1 ed SerPl-m 13:50 Cnc Prot 07-05-2 6.1 6.4-8.2 complet SerPl-m 013 gm/dL ed Cnc 13:50 Albumin 07-05- 3.2 3.4-5.0 complet 013 gm/dL ed SerPl-m 13:50 Cnc Globuli 07-05- 2.9 1.3-3.2 complet n 013 gm/dL ed Ser-mCn 13:50 c Albumin 03-20-2 1.1 UNK 1.1-1.8 complet /Glob 013 ed SerPl-m 13:50 Rto Bilirub 03-20-2 0.6 0.2-1.0 complet 013 mg/dL ed SerPl-m 13:50 Cnc AST 03-20-2 32 U/L 15-37 complet SerPl-c 013 ed Cnc 13:50 ALT 03-20-2 58 U/L 30-65 complet SerPl-c 013 ed Cnc 13:50 ALP 03-20-2 165 U/L 50-136 complet SerPl-c 013 ed [...] Location Performer Comment ANT NASAL 21.01 Karo MCLEAN FOR Add[facility] PRICE EPIST Encounters Encounter Start End Date Code Location Performer Type Date Inpatient REYNALDO Lomeli MD (IN) 3 20:00 3 19:22 [facility] Emergency DOROTEO Sharma (ER) 3 14:42 3 15:55 [facility] Inpatient REYNALDO COLON MD (IN) 3 14:05 3 18:45 [facility]
--- OUTSIDE RECORDS SUMMARY | 2017-03-17 08:40 | External Medical Summary Rpt | CCD ---
Author Author , MARYAN STEINBERG Address Unknown Phone [email or web address] Care Team Providers Care Slot Host Name Role Phone Ernesto Lomeli MD, Unavailable Unavailable Ernesto Mancini MD, Unavailable Unavailable Karo Mancini MD Purpose Continuity of Care Document - 07-05-2012 through 2016 Problems Code Diagnosis DOS Provider Status 244.0 244.0 04-09-2013 [place] POSTSURGICA [facility] HYPOTHYROID 244.9 244.9 04-09-2013 [place] HYPOTHYROID [facility] IS NOS Hospital 272.4 272.4 04-09-2013 [place] HYPERLIPIDE [facility] NEC/NOS Hospital 401.9 401.9 04-09-2013 [place] HYPERTENSIO [facility] N [facility] Hospital 424.0 424.0 04-09-2013 [place] 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 493.90 493.90 04-09-2013 [place] ASTHMA, [facility] UNSPECIFIED Hospital 564.1 564.1 04-09-2013 [place] 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 715.90 715.90 04-09-2013 [place] OSTEOARTHRO [facility] S [facility] NOS-UNSPEC 784.7 784.7 04-09-2013 [place] EPISTAXIS [facility] V12.51 V12.51 04-09-2013 [place] HX-VENOUS [facility] THROMBOSIS& Hospital EMBOLISM V58.61 V58.61 04-09-2013 [place] ANTICOAGULA [facility] NTS,LT,[facility] ENT USE V58.69 V58.69 OTH 04-09-2013 [place] MED,LT,[facility] ENT USE Hospital 356.9 356.9 IDIO 07-07-2012 [place] PERIPH [facility] NEURPTHY [facility] NOS 435.9 435.9 TRANS 07-07-2012 [place] CEREB [facility] ISCHEMIA Hospital NOS 496 496 [facility] 07-07-2012 [place] AIRWAY [facility] OBSTRUCT [facility] NEC 573.3 573.3 07-07-2012 [place] HEPATITIS [facility] NOS Hospital 625.6 625.6 FEM 07-07-2012 [place] STRESS [facility] INCONTINENC [facility] E 729.81 729.81 07-07-2012 [place] SWELLING OF [facility] LIMB [facility] 599.0 599.71 786.05 L03.115 CELLULITIS OF [...] 00 12 0 No TA 40 -2 VA 99 2- Lo N 15 20 ng [...] TH 74 -2 YL 60 2- Lo TX 00 20 ng ED 10 13 er [...] TH 74 -2 YL 60 1- Lo TX 00 20 ng ED 10 13 er [...] Ac ti MG ve TA BL ET TX 51 03 2 No AV 07 -2 [...] SQUARE METERS Comment: If this patient is -[place], then multiply the Comment: result by 1.210. [...] blood 15:00 platele t mean volume laura Stokes % = 6.2 % 1.7-9.3 complet 017 [...] 017 K/mm3 ed monocyt 05:45 e count Stokes % = 8.4 % 1.7-9.3 complet 017 [...] SQUARE METERS Comment: If this patient is -[place], then multiply the Comment: result by 1.210. [...] blood 06:50 platele t mean volume laura Stokes % = 6.8 % 1.7-9.3 complet 017 [...] SQUARE METERS Comment: If this patient is -[place], then multiply the Comment: result by 1.210. [...] SQUARE METERS Comment: If this patient is -[place], then multiply the Comment: result by 1.210. [...] SQUARE METERS Comment: If this patient is -[place], then multiply the Comment: result by 1.210. [...] blood 06:25 platele t mean volume laura Stokes % = 3.8 % 1.7-9.3 complet 017 [...] SQUARE METERS Comment: If this patient is -[place], then multiply the Comment: result by 1.210. [...] 017 K/mm3 ed monocyt 11:17 e count Stokes % = 3.5 % 1.7-9.3 complet 017 [...] fier] in Blood Wound culture (03-08-2017) Wound [id number] complet culture 017 ed Staphyl ococcus aureus SCT SAUR STAPHYL OCOCCUS AUREUS L Wound CULTURE complet culture 017 SWAB ed FROM OUTSIDE LOWER LEFT LEG. Whole blood INR measurement (03-07-2017 11:30) Whole = 2.4 0.9-1.1 complet blood 017 ed INR 11:30 measure ment Comment: Comment: Results sent to: [employer] PRICE,Ernesto August 03/07/17 0636 Comment: Titus Forrester Pharmacist recommendation for Warfarin [...] 017 K/mm3 ed monocyt 10:37 e count Stokes % = 6.2 % 1.7-9.3 complet 017 [...] SQUARE METERS Comment: If this patient is -[place]ian, then multiply the Comment: result by 1.210. [...] SQUARE METERS Comment: If this patient is -[place], then multiply the Comment: result by 1.210. [...] 017 K/mm3 ed monocyt 11:58 e count Stokes % = 3.7 % 1.7-9.3 complet 017 [...] 017 WBCS ed fluid culture Bacteri 11-10-2 [id number] complet al body 017 ed fluid Staphyl culture ococcus aureus SCT SAUR STAPHYL OCOCCUS AUREUS L Whole blood INR measurement (02-14-2017 10:20) Whole 2 = 2.4 0.9-1.1 complet blood 017 ed INR 10:20 measure ment Comment: Comment: Results sent to: Ernesto Lomeli MD 02/14/17 1039 Comment: Titus Forrester Pharmacist recommendation for Warfarin [...] Lomeli MD (IN) 3 20:00 3 19:22 [facility] Emergency DOROTEO Sharma (ER) 3 14:42 3 15:55 [facility] Inpatient REYNALDO COLON MD (IN) 3 14:05 3 18:45 [facility]
--- OUTSIDE RECORDS SUMMARY | 2017-03-17 08:42 | External Medical Summary Rpt | CCD ---
Demographics Preferred Language [place] Zealander Marital Status Unknown Jehovah'S Witness Affiliation Unknown Race Unknown Ethnic Group Unknown Author Author , MARYAN STEINBERG Address Unknown Phone Immunization No patient found.
--- OUTSIDE RECORDS SUMMARY | 2017-03-17 08:42 | External Medical Summary Rpt | CCD ---
Demographics Preferred Language [place] Islander Marital Status Unknown Christianity Affiliation Unknown Race Unknown Ethnic Group Unknown Author Author , MARYAN STEINBERG Address Unknown Phone Immunization No patient found.
--- OUTSIDE RECORDS SUMMARY | 2017-03-17 08:45 | External Medical Summary Rpt ---
Author Author [facility] [employer], [facility] [employer] Organization [employer] Address Unknown Phone Unavailable Results Comprehensive metabolic 2000 panel in Serum or Plasma Observa Value Referen Units Interpr Notes Date tion ce etation Range Albumin/G 1.1 - 1.8 No Low No Mar 16 lobulin informati informati 2016 3:00 [Mass on in on in PM ratio] in source source Serum or data data Plasma Albumin 3.4 - 5.0 gm/dL Low No Mar 16 [Mass/vol informati 2016 3:00 ume] in on in PM Serum or source Plasma data Alkaline 46 - 116 U/L High No Mar 16 phosphata informati 2016 3:00 se on in PM [Enzymati source c data activity/ volume] in Serum or Plasma Bilirubin 0.2 - 1.0 mg/dL Normal No Mar 16 .total informati 2016 3:00 [Mass/vol on in PM ume] in source Serum or data Plasma Urea 7 - 18 mg/dL High No Mar 16 nitrogen informati 2016 3:00 [Mass/vol on in PM ume] in source Serum or data Plasma Calcium 8.5 - mg/dL Normal No Mar 16 [Mass/vol 10.1 informati 2016 3:00 ume] in on in PM Serum or source Plasma data Chloride 98 - 107 mmoL/L Normal No Mar 16 [Moles/vo informati 2016 3:00 lume] in on in PM Serum or source Plasma data Carbon 21.0 - mmoL/L Normal No Mar 16 dioxide, 32.0 informati 2016 3:00 total on in PM [Moles/vo source lume] in data Serum or Plasma Creatinin 0.55 - mg/dL High No Mar 16 e 1.02 informati 2016 3:00 [Mass/vol on in PM ume] in source Serum or data Plasma Estimated 59- ML/MIN Low REFERENCE Mar 16 RANGE: 2016 3:00 glomerula >60 PM r ML/MIN/1. filtratio 73 SQUARE n rate METERSIf (GF this patient is -A merican, then multiply theresult by 1.210. Globulin 1.3 - 3.2 gm/dL Normal Mar 16 [Mass/vol informati 2016 3:00 ume] in on in PM Serum source data Glucose 74 - 106 mg/dL High Mar 16 [Mass/vol informati 2016 3:00 ume] in on in PM Serum or source Plasma data Potassium 3.5 - 5.1 mmoL/L Normal Mar 162016 3:00 [Moles/vo on in PM lume] in source Serum or data Plasma Sodium 136 - 145 mmoL/L Normal Mar 16 [Moles/vo informati 2016 3:00 lume] in on in PM Serum or source Plasma data Aspartate 15 - 37 U/L Low Mar 162016 3:00 aminotran on in PM sferase source [Enzymati data c activity/ volume] in Serum or Plasma Alanine 12 - 78 U/L Normal Mar 16 aminotran inform2016 3:00 sferase on in PM [Enzymati source c data activity/ volume] in Serum or Plasma Protein 6.4 - 8.2 gm/dL Low Mar 16 [Mass/vol informati 2016 3:00 ume] in on in PM Serum or source Plasma data CBC W Auto Differential panel in Blood Observa Value Referen Units Interpr Notes Date tion ce etation Range Basophils 0 - 0.2 K/MM3 Normal Mar 162016 3:00 [#/volume on in PM ] in source Blood by data Automated count Basophils 0.1 - 2.0 % Normal Mar 16 informati 2016 3:00 leukocyte on in PM s in source Blood by data Automated count Eosinophi 0.0 - 0.4 K/mm3 High Mar 16 ls ati 2016 3:00 [#/volume on in PM ] in source Blood by data Automated count Eosinophi 0.1 - % Normal Mar 16 ls/100 12.0 informati 2016 3:00 leukocyte on in PM s in source Blood by data Automated count Granulocy 1.8 - 7.8 K/mm3 Normal Mar 16 bala informati 2016 3:00 [#/volume on in PM ] in source Blood by data Automated count Granulocy 37.0 - % Normal Mar 16 bala100 80.0 informati 2016 3:00 leukocyte on in PM s in source Blood by data Automated count Hematocri 37.0 - % Low No Mar 16 t [Volume 47.0 informati 2016 3:00 on in PM Fraction] source of Blood data Hemoglobi 12.2 - g/dL Low No Mar 16 n 16.2 informati 2016 3:00 [Mass/vol on in PM ume] in source Blood data Lymphocyt 0.7 - 4.5 K/mm3 Normal No Mar 16 es informati 2016 3:00 [#/volume on in PM ] in source Unspecifi data ed specimen by Automated count Lymphocyt 10 - 50.0 % Normal No Mar 16 es informati 2016 3:00 [#/volume on in PM ] in source Unspecifi data ed specimen by Automated count Erythrocy 27 - 31.2 pg High No Mar 16 te mean informati 2016 3:00 corpuscul on in PM ar source hemoglobi data n [Entitic mass] Erythrocy 31.8 - g/dl Normal Mar 16 te mean 35.4 ati 2016 3:00 corpuscul on in PM ar source hemoglobi data n concentra tion [Mass/vol ume] by Automated count Erythrocy 82.2 - fl Normal No Mar 16 te mean 97.8 informati 2016 3:00 corpuscul on in PM ar volume source [Entitic data volume] by Automated count Monocytes 0.1 - 1.0 K/mm3 Normal No Mar 162016 3:00 [#/volume on in PM ] in source Blood by data Automated count Monocytes 1.7 - 9.3 % Normal No Mar 16 /100 ati 2016 3:00 leukocyte on in PM s in source Blood by data Automated count Platelet 7.4 - fl Normal Mar 16 mean 10.4 ati 2016 3:00 volume on in PM [Entitic source volume] data in Blood by Automated count Platelets 142 - 424 K/mm3 Normal No Mar 16ati 2016 3:00 [#/volume on in PM ] in source Blood data Erythrocy 4.2 - 5.4 M/mm3 Low No Mar 16 bala informati 2016 3:00 [#/volume on in PM ] in source Amniotic data fluid Erythrocy 11.5 - % Normal Mar 16 te 17.5 ati 2016 3:00 distribut on in PM ion width source [Entitic data volume] by Automated count Leukocyte 4.8 - K/MM3 Normal No Mar 16 s 10.8 informati 2017 3:00 [#/volume on in PM ] in source Blood data Glucose [Mass/volume] in Capillary blood by Glucometer Observa Value Referen Units Interpr Notes Date tion ce etation Range Glucose 70 - 110 mg/dl High No Mar 15 [Mass/vol informati 2016 6:43 ume] in on in AM Capillary source blood by data Glucomete r Comprehensive metabolic 2000 panel in Serum or Plasma Observa Value Referen Units Interpr Notes Date tion ce etation Range Albumin/G 1.1 - 1.8 No Low No Mar 15 lobulin informati informati 2016 5:45 [Mass on in on in AM ratio] in source source Serum or data data Plasma Albumin 3.4 - 5.0 gm/dL Low No Mar 15 [Mass/vol informati 2016 5:45 ume] in on in AM Serum or source Plasma data Alkaline 46 - 116 U/L Normal Mar 15 phosphata informati 2016 5:45 se on in AM [Enzymati source c data activity/ volume] in Serum or Plasma Bilirubin 0.2 - 1.0 mg/dL Normal Mar 15 .total informati 2016 5:45 [Mass/vol on in AM ume] in source Serum or data Plasma Urea 7 - 18 mg/dL High No Mar 15 nitrogen informati 2016 5:45 [Mass/vol on in AM ume] in source Serum or data Plasma Calcium 8.5 - mg/dL Normal No Mar 15 [Mass/vol 10.1 informati 2016 5:45 ume] in on in AM Serum or source Plasma data Chloride 98 - 107 mmoL/L Normal No Mar 15 [Moles/vo informati 2017 5:45 lume] in on in AM Serum or source Plasma data Carbon 21.0 - mmoL/L Normal No Mar 15 dioxide, 32.0 informati 2017 5:45 total on in AM [Moles/vo source lume] in data Serum or Plasma Creatinin 0.55 - mg/dL High No Mar 15 e 1.02 informati 2017 5:45 [Mass/vol on in AM ume] in source Serum or data Plasma Creatinin 50 - 200 ML/MIN Low No Mar 15 e renal informati 2017 5:45 clearance on in AM source predicted data by Cockcroft -Gault formula Estimated 59- ML/MIN Low REFERENCE Mar 15 RANGE: 2016 5:45 glomerula >60 AM r ML/MIN/1. filtratio 73 SQUARE n rate METERSIf (GF this patient is -A merican, then multiply theresult by 1.210. Globulin 1.3 - 3.2 gm/dL Normal No Mar 15 [Mass/vol informati 2016 5:45 ume] in on in AM Serum source data Glucose 74 - 106 mg/dL High No Mar 15 [Mass/vol informati 2016 5:45 ume] in on in AM Serum or source Plasma data Potassium 3.5 - 5.1 mmoL/L Normal No Mar 15 informati 2016 5:45 [Moles/vo on in AM lume] in source Serum or data Plasma Sodium 136 - 145 mmoL/L Normal No Mar 15 [Moles/vo informati 2016 5:45 lume] in on in AM Serum or source Plasma data Aspartate 15 - 37 U/L Low No Mar 15 informati 2016 5:45 aminotran on in AM sferase source [Enzymati data c activity/ volume] in Serum or Plasma Alanine 12 - 78 U/L Normal No Mar 15 aminotran informati 2016 5:45 sferase on in AM [Enzymati source c data activity/ volume] in Serum or Plasma Protein 6.4 - 8.2 gm/dL Low No Mar 15 [Mass/vol informati 2016 5:45 ume] in on in AM Serum or source Plasma data PT & aPTT panel in Platelet poor plasma by Coagulation assay Observa Value Referen Units Interpr Notes Date tion ce etation Range INR in 0.9 - 1.1 No High Mar 15 Blood by informati NOTIFICAT 2016 5:45 Coagulati on in ION AM on assay source RESULT data INDIC ATION INR RANGETHER APY FOR DVT, PE, ATRIAL FIB; 2.0 - 3.0PROPHY LAXIS FOR VTETHERAP Y FOR MECHANICA L HEART 2.5 - 3.5VALVE; PREVENTIO N OF SYSTEMICE MBOLISM SECONDARY TO AMI Prothromb 9.4 - SECONDS High Mar 15 in time 11.8 NOTIFICAT 2016 5:45 (PT) in ION AM Platelet RESULT poor plasma by Coagulati on assay Activated 23.6 - SECONDS High CALLED TO Mar 15 partial 34.0 alert TEMO 2016 5:45 thrombpla W.RESULTS AM stin time CALLED (aPTT) TO in PHARMACIS Platelet T: poor 03/15/17 plasma by 06Kian onGee Coagulnarciso ia on assay CBC W Auto Differential panel in Blood Observa Value Referen Units Interpr Notes Date tion ce etation Range Basophils 0 - 0.2 K/MM3 Normal No Mar 15 informati 2016 5:45 [#/volume on in AM ] in source Blood by data Automated count Basophils 0.1 - 2.0 % Normal No Mar 15 /100 informati 2017 5:45 leukocyte on in AM s in source Blood by data Automated count Eosinophi 0.0 - 0.4 K/mm3 Normal No Mar 15 ls informati 2016 5:45 [#/volume on in AM ] in source Blood by data Automated count Eosinophi 0.1 - % Normal No Mar 15 ls/100 12.0 informati 2016 5:45 leukocyte on in AM s in source Blood by data Automated count Granulocy 1.8 - 7.8 K/mm3 Normal No Mar 15 bala informati 2016 5:45 [#/volume on in AM ] in source Blood by data Automated count Granulocy 37.0 - % Normal No Mar 15 bala/100 80.0 informati 2016 5:45 leukocyte on in AM s in source Blood by data Automated count Hematocri 37.0 - % Low No Mar 15 t [Volume 47.0 informati 2016 5:45 on in AM Fraction] source of Blood data Hemoglobi 12.2 - g/dL Low No Mar 15 n 16.2 informati 2016 5:45 [Mass/vol on in AM ume] in source Blood data Lymphocyt 0.7 - 4.5 K/mm3 Normal No Mar 15 es informati 2016 5:45 [#/volume on in AM ] in source Unspecifi data ed specimen by Automated count Lymphocyt 10 - 50.0 % Normal Mar 15 es informati 2016 5:45 [#/volume on in AM ] in source Unspecifi data ed specimen by Automated count Erythrocy 27 - 31.2 pg High No Mar 15 te mean informati 2016 5:45 corpuscul on in AM ar source hemoglobi data n [Entitic mass] Erythrocy 31.8 - g/dl Normal Mar 15 te mean 35.4 informati 2016 5:45 corpuscul on in AM ar source hemoglobi data n concentra tion [Mass/vol ume] by Automated count Erythrocy 82.2 - fl Normal No Mar 15 te mean 97.8 informati 2016 5:45 corpuscul on in AM ar volume source [Entitic data volume] by Automated count Monocytes 0.1 - 1.0 K/mm3 Normal No Mar 15 inform2016 5:45 [#/volume on in AM ] in source Blood by data Automated count Monocytes 1.7 - 9.3 % Normal No Mar 15 /100 informati 2016 5:45 leukocyte on in AM s in source Blood by data Automated count Platelet 7.4 - fl Normal No Mar 15 mean 10.4 informati 2016 5:45 volume on in AM [Entitic source volume] data in Blood by Automated count Platelets 142 - 424 K/mm3 No Mar 15 informati informati 2016 5:45 [#/volume on in on in AM ] in source source Blood data data Erythrocy 4.2 - 5.4 M/mm3 Low No Mar 15 bala informati 2016 5:45 [#/volume on in AM ] in source Amniotic data fluid Erythrocy 11.5 - % Normal No Mar 15 te 17.5 informati 2016 5:45 distribut on in AM ion width source [Entitic data volume] by Automated count Leukocyte 4.8 - K/MM3 Normal No Mar 15 s 10.8 informati 2016 5:45 [#/volume on in AM ] in source Blood data Glucose [Mass/volume] in Capillary blood by Glucometer Observa Value Referen Units Interpr Notes Date ti ce etation Range Glucose 70 - 110 mg/dl High No Mar 14 [Mass/vol informati 2016 9:52 ume] in on in PM Capillary source blood by data Glucomete r Glucose [Mass/volume] in Capillary blood by Glucometer Observa Value Referen Units Interpr Notes Date ce etation Range Glucose 70 - 110 mg/dl High No Mar 14 [Mass/vol informati 2016 5:32 ume] in on in PM Capillary source blood by data Glucomete r Vancomycin [Mass/volume] in Serum or Plasma --trough Observa Value Referen Units Interpr Notes Date ti ce etation Range Vancomyci 10.0 - mcg/mL High RESULTS Mar 14 n 20.0 CALLED TO 2017 [Mass/vol 12:30 PM ume] in PHARMACIS Serum or T: Plasma [id number] --trough / 1256 No [place] Glucose [Mass/volume] in Capillary blood by Glucometer Observa Value Referen Units Interpr Notes Date tion ce etation Range Glucose 70 - 110 mg/dl High No Mar 14 [Mass/vol informati 2016 ume] in on in 11:32 AM Capillary source blood by data Glucomete r CBC W Auto Differential panel in Blood Observa Value Referen Units Interpr Notes Date tion ce etation Range Basophils 0 - 0.2 K/MM3 Normal No Mar 14 informati 2016 6:50 [#/volume on in AM ] in source Blood by data Automated count Basophils 0.1 - 2.0 % Normal No Mar 14 informati 2016 6:50 leukocyte on in AM s in source Blood by data Automated count Eosinophi 0.0 - 0.4 K/mm3 Normal No Mar 14 ls informati 2016 6:50 [#/volume on in AM ] in source Blood by data Automated count Eosinophi 0.1 - % Normal No Mar 14 ls/100 12.0 informati 2016 6:50 leukocyte on in AM s in source Blood by data Automated count Granulocy 1.8 - 7.8 K/mm3 Normal No Mar 14 bala informati 2016 6:50 [#/volume on in AM ] in source Blood by data Automated count Granulocy 37.0 - % Normal No Mar 14 bala/100 80.0 informati 2016 6:50 leukocyte on in AM s in source Blood by data Automated count Hematocri 37.0 - % Low Mar 14 t [Volume 47.0 informati 2016 6:50 on in AM Fraction] source of Blood data Hemoglobi 12.2 - g/dL Low Mar 14 n 16.2 informati 2016 6:50 [Mass/vol on in AM ume] in source Blood data Lymphocyt 0.7 - 4.5 K/mm3 Normal Mar 14 es informati 2016 6:50 [#/volume on in AM ] in source Unspecifi data ed specimen by Automated count Lymphocyt 10 - 50.0 % Normal Mar 14 es informati 2016 6:50 [#/volume on in AM ] in source Unspecifi data ed specimen by Automated count Erythrocy 27 - 31.2 pg High No Nov 27 te mean informati 2016 6:50 corpuscul on in AM ar source hemoglobi data n [Entitic mass] Erythrocy 31.8 - g/dl Normal Mar 14 te mean 35.4 informati 2016 6:50 corpuscul on in AM ar source hemoglobi data n concentra tion [Mass/vol ume] by Automated count Erythrocy 82.2 - fl Normal Mar 14 te mean 97.8 informati 2016 6:50 corpuscul on in AM ar volume source [Entitic data volume] by Automated count Monocytes 0.1 - 1.0 K/mm3 Normal No Mar 14 informati 2016 6:50 [#/volume on in AM ] in source Blood by data Automated count Monocytes 1.7 - 9.3 % Normal No Mar 14 /100 informati 2016 6:50 leukocyte on in AM s in source Blood by data Automated count Platelet 7.4 - fl Normal Mar 14 mean 10.4 informati 2016 6:50 volume on in AM [Entitic source volume] data in Blood by Automated count Platelets 142 - 424 K/mm3 Normal No Mar 14 informati 2016 6:50 [#/volume on in AM ] in source Blood data Erythrocy 4.2 - 5.4 M/mm3 Low No Mar 14 bala informati 2017 6:50 [#/volume on in AM ] in source Amniotic data fluid Erythrocy 11.5 - % Normal Mar 14 te 17.5 informati 2016 6:50 distribut on in AM ion width source [Entitic data volume] by Automated count Leukocyte 4.8 - K/MM3 Normal Mar 14 s 10.8 informati 2016 6:50 [#/volume on in AM ] in source Blood data Basic metabolic panel in Blood Observa Value Referen Units Interpr Notes Date tion ce etation Range Urea 7 - 18 mg/dL High No Mar 14 nitrogen informati 2016 6:50 [Mass/vol on in AM ume] in source Serum or data Plasma Calcium 8.5 - mg/dL Normal Mar 14 [Mass/vol 10.1 informati 2016 6:50 ume] in on in AM Serum or source Plasma data Chloride 98 - 107 mmoL/L Normal Mar 14 [Moles/vo informati 2016 6:50 lume] in on in AM Serum or source Plasma data Carbon 21.0 - mmoL/L Normal Mar 14 dioxide, 32.0 informati 2016 6:50 total on in AM [Moles/vo source lume] in data Serum or Plasma Creatinin 0.55 - mg/dL High No Mar 14 e 1.02 informati 2016 6:50 [Mass/vol on in AM ume] in source Serum or data Plasma Creatinin 50 - 200 ML/MIN Low No Mar 14 e renal informati 2016 6:50 clearance on in AM source predicted data by Cockcroft -Gault formula Estimated 59- ML/MIN Low REFERENCE Mar 14 RANGE: 2017 6:50 glomerula >60 AM r ML/MIN/1. filtratio 73 SQUARE n rate METERSIf (GF this patient is -A merican, then multiply theresult by 1.210. Glucose 74 - 106 mg/dL High No Mar 14 [Mass/vol informati 2016 6:50 ume] in on in AM Serum or source Plasma data Potassium 3.5 - 5.1 mmoL/L Low No Mar 14 informati 2016 6:50 [Moles/vo on in AM lume] in source Serum or data Plasma Sodium 136 - 145 mmoL/L Normal No Mar 14 [Moles/vo informati 2016 6:50 lume] in on in AM Serum or source Plasma data INR in Blood by Coagulation assay Observa Value Referen Units Interpr Notes Date tion ce etation Range IS PATIENT ON ANTICOAGULANTS? Y LIST ANTICOAGULANTS: COUMADIN PTT RESULTS MUST BE CALLED IF PT ON HEPARIN!!! Y INR in 0.9 - 1.1 No High Mar 14 Blood by informati NOTIFICAT 2016 6:50 Coagulati on in ION AM on assay source RESULT data Katelin Bach ION INR RANGETHER APY FOR DVT, PE, ATRIAL FIB; 2.0 - 3.0PROPHY LAXIS FOR VTETHERAP Y FOR MECHANICA L HEART 2.5 - 3.5VALVE; PREVENTIO N OF SYSTEMICE MBOLISM SECONDARY TO AMI Prothromb 9.4 - SECONDS High Mar 14 in time 11.8 NOTIFICAT 2016 6:50 (PT) in ION AM Platelet RESULT poor Katelin plasma by dustin Coagulnarciso on assay Glucose [Mass/volume] in Capillary blood by Glucometer Observa Value Referen Units Interpr Notes Date tion ce etation Range Glucose 70 - 110 mg/dl High No Mar 14 [Mass/vol informati 2016 6:09 ume] in on in AM Capillary source blood by data Glucomete r Glucose [Mass/volume] in Capillary blood by Glucometer Observa Value Referen Units Interpr Notes Date tion ce etation Range Glucose 70 - 110 mg/dl High No Mar 13 [Mass/vol informati 2016 8:55 ume] in on in PM Capillary source blood by data Glucomete r Glucose [Mass/volume] in Capillary blood by Glucometer Observa Value Referen Units Interpr Notes Date ti ce etation Range Glucose 70 - 110 mg/dl High No Mar 13 [Mass/vol informati 2016 4:31 ume] in on in PM Capillary source blood by data Glucomete r Glucose [Mass/volume] in Capillary blood by Glucometer Observa Value Referen Units Interpr Notes Date ti ce etation Range Glucose 70 - 110 mg/dl High No Mar 13 [Mass/vol informati 2016 ume] in on in 11:29 AM Capillary source blood by data Glucomete r Glucose [Mass/volume] in Capillary blood by Glucometer Observa Value Referen Units Interpr Notes Date ti ce etation Range Glucose 70 - 110 mg/dl High No Mar 13 [Mass/vol informati 2016 6:16 ume] in on in AM Capillary source blood by data Glucomete r Glucose [Mass/volume] in Capillary blood by Glucometer Observa Value Referen Units Interpr Notes Date ti etation Range Glucose 70 - 110 mg/dl High No Mar 12 [Mass/vol informati 2016 8:53 ume] in on in PM Capillary source blood by data Glucomete r Glucose [Mass/volume] in Capillary blood by Glucometer Observa Value Referen Units Interpr Notes Date ti ce etation Range Glucose 70 - 110 mg/dl High No Mar 12 [Mass/vol informati 2016 4:27 ume] in on in PM Capillary source blood by data Glucomete r Glucose [Mass/volume] in Capillary blood by Glucometer Observa Value Referen Units Interpr Notes Date ti ce etation Range Glucose 70 - 110 mg/dl High No Mar 12 [Mass/vol informati 2016 ume] in on in 11:22 AM Capillary source blood by data Glucomete r INR in Blood by Coagulation assay Observa Value Referen Units Interpr Notes Date tion ce etation Range IS PATIENT ON ANTICOAGULANTS? Y LIST ANTICOAGULANTS: WARFARIN PTT RESULTS MUST BE CALLED IF PT ON HEPARIN!!! Y INR in 0.9 - 1.1 No High INDICATIO Mar 12 Blood by informati N 2016 6:38 Coagulati on in AM on assay source INR data RANGETHER APY FOR DVT, PE, ATRIAL FIB; 2.0 - 3.0PROPHY LAXIS FOR VTETHERAP Y FOR MECHANICA L HEART 2.5 - 3.5VALVE; PREVENTIO N OF SYSTEMICE MBOLISM SECONDARY TO AMI Prothromb 9.4 - SECONDS High No Mar 12 in time 11.8 informati 2016 6:38 (PT) in on in AM Platelet source poor data plasma by Coagulati on assay Glucose [Mass/volume] in Capillary blood by Glucometer Observa Value Referen Units Interpr Notes Date ti etation Range Glucose 70 - 110 mg/dl High No Mar 12 [Mass/vol informati 2016 6:14 ume] in on in AM Capillary source blood by data Glucomete r Glucose [Mass/volume] in Capillary blood by Glucometer Observa Value Referen Units Interpr Notes Date ti etation Range Glucose 70 - 110 mg/dl High No Mar 11 [Mass/vol informati 2016 8:58 ume] in on in PM Capillary source blood by data Glucomete r Glucose [Mass/volume] in Capillary blood by Glucometer Observa Value Referen Units Interpr Notes Date ti etation Range Glucose 70 - 110 mg/dl High No Mar 11 [Mass/vol informati 2016 4:40 ume] in on in PM Capillary source blood by data Glucomete r Glucose [Mass/volume] in Capillary blood by Glucometer Observa Value Referen Units Interpr Notes Date ti ce etation Range Glucose 70 - 110 mg/dl High No Mar 11 [Mass/vol informati 2016 ume] in on in 11:56 AM Capillary source blood by data Glucomete r Basic metabolic panel in Blood Observa Value Referen Units Interpr Notes Date ti ce etation Range Urea 7 - 18 mg/dL High No Mar 11 nitrogen informati 2017 6:50 [Mass/vol on in AM ume] in source Serum or data Plasma Calcium 8.5 - mg/dL Low No Mar 11 [Mass/vol 10.1 informati 2016 6:50 ume] in on in AM Serum or source Plasma data Chloride 98 - 107 mmoL/L Normal No Mar 11 [Moles/vo informati 2016 6:50 lume] in on in AM Serum or source Plasma data Carbon 21.0 - mmoL/L Normal No Mar 11 dioxide, 32.0 informati 2016 6:50 total on in AM [Moles/vo source lume] in data Serum or Plasma Creatinin 0.55 - mg/dL Normal No Mar 11 e 1.02 informati 2016 6:50 [Mass/vol on in AM ume] in source Serum or data Plasma Creatinin 50 - 200 ML/MIN Normal No Mar 11 e renal informati 2017 6:50 clearance on in AM source predicted data by Cockcroft -Gault formula Estimated 59- ML/MIN Low REFERENCE Mar 11 RANGE: 2017 6:50 glomerula >60 AM r ML/MIN/1. filtratio 73 SQUARE n rate METERSIf (GF this patient is -A merican, then multiply theresult by 1.210. Glucose 74 - 106 mg/dL High No Mar 11 [Mass/vol informati 2016 6:50 ume] in on in AM Serum or source Plasma data Potassium 3.5 - 5.1 mmoL/L Low No Mar 11 informati 2016 6:50 [Moles/vo on in AM lume] in source Serum or data Plasma Sodium 136 - 145 mmoL/L Normal No Mar 11 [Moles/vo informati 2016 6:50 lume] in on in AM Serum or source Plasma data Glucose [Mass/volume] in Capillary blood by Glucometer Observa Value Referen Units Interpr Notes Date tion ce etation Range Glucose 70 - 110 mg/dl High No Mar 11 [Mass/vol informati 2017 6:14 ume] in on in AM Capillary source blood by data Glucomete r Glucose [Mass/volume] in Capillary blood by Glucometer Observa Value Referen Units Interpr Notes Date ti ce etation Range Glucose 70 - 110 mg/dl High No Mar 10 [Mass/vol informati 2016 9:27 ume] in on in PM Capillary source blood by data Glucomete r Glucose [Mass/volume] in Capillary blood by Glucometer Observa Value Referen Units Interpr Notes Date tion ce etation Range Glucose 70 - 110 mg/dl High No Mar 10 [Mass/vol informati 2017 4:28 ume] in on in PM Capillary source blood by data Glucomete r Vancomycin [Mass/volume] in Serum or Plasma --trough Observa Value Referen Units Interpr Notes Date ti ce etation Range Vancomyci 10.0 - mcg/mL Normal No Mar 10 n 20.0 informati 2016 [Mass/vol on in 12:55 PM ume] in source Serum or data Plasma --trough Glucose [Mass/volume] in Capillary blood by Glucometer Observa Value Referen Units Interpr Notes Date ti ce etation Range Glucose 70 - 110 mg/dl High No Mar 10 [Mass/vol informati 2016 ume] in on in 11:32 AM Capillary source blood by data Glucomete r Glucose [Mass/volume] in Capillary blood by Glucometer Observa Value Referen Units Interpr Notes Date etation Range Glucose 70 - 110 mg/dl High No Mar 10 [Mass/vol informati 2016 6:15 ume] in on in AM Capillary source blood by data Glucomete r Glucose [Mass/volume] in Capillary blood by Glucometer Observa Value Referen Units Interpr Notes Date etation Range Glucose 70 - 110 mg/dl High No Mar 09 [Mass/vol informati 2016 8:35 ume] in on in PM Capillary source blood by data Glucomete r Glucose [Mass/volume] in Capillary blood by Glucometer Observa Value Referen Units Interpr Notes Date etation Range Glucose 70 - 110 mg/dl High No Mar 09 [Mass/vol informati 2016 4:37 ume] in on in PM Capillary source blood by data Glucomete r Glucose [Mass/volume] in Capillary blood by Glucometer Observa Value Referen Units Interpr Notes Date etation Range Glucose 70 - 110 mg/dl High No Mar 09 [Mass/vol informati 2016 ume] in on in 11:14 AM Capillary source blood by data Glucomete r Basic metabolic panel in Blood Observa Value Referen Units Interpr Notes Date ti ce etation Range Urea 7 - 18 mg/dL High No Mar 09 nitrogen informati 2017 6:25 [Mass/vol on in AM ume] in source Serum or data Plasma Calcium 8.5 - mg/dL Normal No Mar 09 [Mass/vol 10.1 informati 2016 6:25 ume] in on in AM Serum or source Plasma data Chloride 98 - 107 mmoL/L Normal No Mar 09 [Moles/vo informati 2016 6:25 lume] in on in AM Serum or source Plasma data Carbon 21.0 - mmoL/L Normal No Mar 09 dioxide, 32.0 informati 2016 6:25 total on in AM [Moles/vo source lume] in data Serum or Plasma Creatinin 0.55 - mg/dL Normal No Mar 09 e 1.02 informati 2016 6:25 [Mass/vol on in AM ume] in source Serum or data Plasma Creatinin 50 - 200 ML/MIN Normal No Mar 09 e renal informati 2017 6:25 clearance on in AM source predicted data by Cockcroft -Gault formula Estimated 59- ML/MIN Low REFERENCE Mar 09 RANGE: 2017 6:25 glomerula >60 AM r ML/MIN/1. filtratio 73 SQUARE n rate METERSIf (GF this patient is -A merican, then multiply theresult by 1.210. Glucose 74 - 106 mg/dL High No Mar 09 [Mass/vol informati 2016 6:25 ume] in on in AM Serum or source Plasma data Potassium 3.5 - 5.1 mmoL/L Low No Mar 09ati 2016 6:25 [Moles/vo on in AM lume] in source Serum or data Plasma Sodium 136 - 145 mmoL/L Normal No Mar 09 [Moles/vo informati 2016 6:25 lume] in on in AM Serum or source Plasma data CBC W Auto Differential panel in Blood Observa Value Referen Units Interpr Notes Date tion ce etation Range Basophils 0 - 0.2 K/MM3 Normal No Mar 09 informati 2016 6:25 [#/volume on in AM ] in source Blood by data Automated count Basophils 0.1 - 2.0 % Normal No Mar 09 /100 informati 2017 6:25 leukocyte on in AM s in source Blood by data Automated count Eosinophi 0.0 - 0.4 K/mm3 Normal No Mar 09 ls informati 2016 6:25 [#/volume on in AM ] in source Blood by data Automated count Eosinophi 0.1 - % Normal No Mar 09 ls/100 12.0 informati 2016 6:25 leukocyte on in AM s in source Blood by data Automated count Granulocy 1.8 - 7.8 K/mm3 Normal No Mar 09 bala informati 2017 6:25 [#/volume on in AM ] in source Blood by data Automated count Granulocy 37.0 - % High No Mar 09 bala/100 80.0 informati 2017 6:25 leukocyte on in AM s in source Blood by data Automated count Hematocri 37.0 - % Low Mar 09 t [Volume 47.0 informati 2017 6:25 on in AM Fraction] source of Blood data Hemoglobi 12.2 - g/dL Low No Mar 09 n 16.2 informati 2017 6:25 [Mass/vol on in AM ume] in source Blood data Lymphocyt 0.7 - 4.5 K/mm3 Low No Mar 09 es informati 2017 6:25 [#/volume on in AM ] in source Unspecifi data ed specimen by Automated count Lymphocyt 10 - 50.0 % Low Mar 09 es informati 2016 6:25 [#/volume on in AM ] in source Unspecifi data ed specimen by Automated count Erythrocy 27 - 31.2 pg High No Mar 09 te mean informati 2017 6:25 corpuscul on in AM ar source hemoglobi data n [Entitic mass] Erythrocy 31.8 - g/dl Normal Mar 09 te mean 35.4 informati 2017 6:25 corpuscul on in AM ar source hemoglobi data n concentra tion [Mass/vol ume] by Automated count Erythrocy 82.2 - fl High Mar 09 te mean 97.8 informati 2017 6:25 corpuscul on in AM ar volume source [Entitic data volume] by Automated count Monocytes 0.1 - 1.0 K/mm3 Normal No Mar 09 informati 2017 6:25 [#/volume on in AM ] in source Blood by data Automated count Monocytes 1.7 - 9.3 % Normal No Mar 09 /100 informati 2017 6:25 leukocyte on in AM s in source Blood by data Automated count Platelet 7.4 - fl Normal No Mar 09 mean 10.4 informati 2017 6:25 volume on in AM [Entitic source volume] data in Blood by Automated count Platelets 142 - 424 K/mm3 Normal No Mar 09 informati 2017 6:25 [#/volume on in AM ] in source Blood data Erythrocy 4.2 - 5.4 M/mm3 Low No Mar 09 bala informati 2016 6:25 [#/volume on in AM ] in source Amniotic data fluid Erythrocy 11.5 - % Normal No Mar 09 te 17.5 informati 2016 6:25 distribut on in AM ion width source [Entitic data volume] by Automated count Leukocyte 4.8 - K/MM3 Normal No Mar 09 s 10.8 informati 2016 6:25 [#/volume on in AM ] in source Blood data INR in Blood by Coagulation assay Observa Value Referen Units Interpr Notes Date tion ce etation Range IS PATIENT ON ANTICOAGULANTS? Y LIST ANTICOAGULANTS: COUMADIN PTT RESULTS MUST BE CALLED IF PT ON HEPARIN!!! Y INR in 0.9 - 1.1 No High INDICATIO Mar 09 Blood by informati N 2016 6:25 Coagulati on in AM on assay source INR data RANGETHER APY FOR DVT, PE, ATRIAL FIB; 2.0 - 3.0PROPHY LAXIS FOR VTETHERAP Y FOR MECHANICA L HEART 2.5 - 3.5VALVE; PREVENTIO N OF SYSTEMICE MBOLISM SECONDARY TO AMI Prothromb 9.4 - SECONDS High No Mar 09 in time 11.8 informati 2016 6:25 (PT) in on in AM Platelet source poor data plasma by Coagulati on assay Glucose [Mass/volume] in Capillary blood by Glucometer Observa Value Referen Units Interpr Notes Date ti etation Range Glucose 70 - 110 mg/dl High No Mar 09 [Mass/vol informati 2016 6:11 ume] in on in AM Capillary source blood by data Glucomete r Glucose [Mass/volume] in Capillary blood by Glucometer Observa Value Referen Units Interpr Notes Date ti ce etation Range Glucose 70 - 110 mg/dl High No Mar 08 [Mass/vol informati 2016 8:18 ume] in on in PM Capillary source blood by data Glucomete r Glucose [Mass/volume] in Capillary blood by Glucometer Observa Value Referen Units Interpr Notes Date ti etation Range Glucose 70 - 110 mg/dl High No Mar 08 [Mass/vol informati 2016 5:13 ume] in on in PM Capillary source blood by data Glucomete r Lactate [Moles/volume] in Serum or Plasma Observa Value Referen Units Interpr Notes Date tion ce etation Range Lactate 0.4 - 2.0 MMOL/L Normal No Mar 08 [Moles/vo informati 2017 3:25 lume] in on in PM Serum or source Plasma data Urinalysis dipstick W Reflex Microscopic panel in Urine Observa Value Referen Units Interpr Notes Date tion ce etation Range Appeara CLEAR CLEAR No No No Mar 08 nce of informa informa informa 2016 Urine tion in tion in tion in 1:17 PM source source source data data data Bacteri 2+ O No No No Mar 08 a informa informa informa 2016 [Presen tion in tion in tion in 1:17 PM ce] in source source source Urine data data data sedimen t by Light microsc opy Bilirub NEGATIV NEG No No No Mar 08 in E informa informa informa 2016 [Presen tion in tion in tion in 1:17 PM ce] in source source source Urine data data data by Test strip Erythro NEGATIV NEG No No No Mar 08 cytes E informa informa informa 2016 [Presen tion in tion in tion in 1:17 PM ce] in source source source Urine data data data Color YELLOW YELLOW No No No Mar 08 of informa informa informa 2016 Urine tion in tion in tion in 1:17 PM source source source data data data Glucose NEG No No No Mar 08 [Mass/vol informati informati informati 2017 1:17 ume] in on in on in on in PM Urine by source source source Test data data data strip Ketones NEGATIV NEG mg/dL No No Mar 08 E informa informa 2016 [Presen tion in tion in 1:17 PM ce] in source source Urine data data by Automat ed test strip Mucus NEGATIV NEG No No No Mar 08 [Presen E informa informa informa 2016 ce] in tion in tion in tion in 1:17 PM Urine source source source sedimen data data data t by Light microsc opy Nitrite NEGATIV NEG No No No Mar 08 E informa informa informa 2016 [Presen tion in tion in tion in 1:17 PM ce] in source source source Urine data data data by Test strip pH of 5.0 - 8.5 No Normal No Mar 08 Urine informati informati 2017 1:17 on in on in PM source source data data Protein NEG mg/dL High No Mar 08 [Mass/vol informati 2017 1:17 ume] in on in PM Urine by source Automated data test strip Erythro NONE 0 rbc/hpf No No Mar 08 cytes informa informa 2016 [Presen tion in tion in 1:17 PM ce] in source source Urine data data sedimen t by Light microsc opy Specific 1.005 - No Normal No Mar 08 gravity 1.030 informati informati 2017 1:17 of Urine on in on in PM source source data data Epithel 20-50 0 - 5 #/hpf No No Mar 08 ial informa informa 2016 cells.s tion in tion in 1:17 PM quamous source source data data [Presen ce] in Urine sedimen t by Microsc opy high power field Urobili 0.2 NEG E.U./dL No No Mar 08 nogen informa informa 2016 [Presen tion in tion in 1:17 PM ce] in source source Urine data data by Test strip Leukocyte O wbc/hpf No No Mar 08 s informati informati 2016 1:17 [#/volume on in on in PM ] in source source Urine data data Urinalysis dipstick W Reflex Microscopic panel in Urine Observa Value Referen Units Interpr Notes Date tion ce etation Range Appeara CLEAR CLEAR No No No Mar 08 nce of informa informa informa 2016 Urine tion in tion in tion in 1:17 PM source source source data data data Bilirub NEGATIV NEG No No No Mar 08 in E informa informa informa 2016 [Presen tion in tion in tion in 1:17 PM ce] in source source source Urine data data data by Test strip Erythro NEGATIV NEG No No No Mar 08 cytes E informa informa informa 2016 [Presen tion in tion in tion in 1:17 PM ce] in source source source Urine data data data Color YELLOW YELLOW No No No Mar 08 of informa informa informa 2017 Urine tion in tion in tion in 1:17 PM source source source data data data Glucose NEG No No No Mar 08 [Mass/vol informati informati informati 2016 1:17 ume] in on in on in on in PM Urine by source source source Test data data data strip Ketones NEGATIV NEG mg/dL No No Mar 08 E informa informa 2016 [Presen tion in tion in 1:17 PM ce] in source source Urine data data by Automat ed test strip Mucus NEGATIV NEG No No No Mar 08 [Presen E informa informa informa 2016 ce] in tion in tion in tion in 1:17 PM Urine source source source sedimen data data data t by Light microsc opy Nitrite NEGATIV NEG No No No Mar 08 E informa informa informa 2016 [Presen tion in tion in tion in 1:17 PM ce] in source source source Urine data data data by Test strip pH of 5.0 - 8.5 No Normal No Mar 08 Urine informati inform2016 1:17 on in on in PM source source data data Protein NEG mg/dL High No Mar 08 [Mass/vol 2016 1:17 ume] in on in PM Urine by source Automated data test strip Specific 1.005 - No Normal No Mar 08 gravity 1.030 informati 2016 1:17 of Urine on in on in PM source source data data Urobili 0.2 NEG E.U./dL No No Mar 08 nogen informa informa 2016 [Presen tion in tion in 1:17 PM ce] in source source Urine data data by Test strip CBC W Auto Differential panel in Blood Observa Value Referen Units Interpr Notes Date tion ce etation Range Basophils 0 - 0.2 K/MM3 Normal No Mar 082016 [#/volume on in 11:17 AM ] in source Blood by data Automated count Basophils 0.1 - 2.0 % Normal No Mar 08 /100 2016 leukocyte on in 11:17 AM s in source Blood by data Automated count Eosinophi 0.0 - 0.4 K/mm3 Normal No Mar 08 ls 2016 [#/volume on in 11:17 AM ] in source Blood by data Automated count Eosinophi 0.1 - % Normal No Mar 08 ls/100 12.0 2016 leukocyte on in 11:17 AM s in source Blood by data Automated count Granulocy 1.8 - 7.8 K/mm3 High No Mar 08 bala 2016 [#/volume on [...] - g/dL Normal Mar 08 n 16.2 informati 2016 [Mass/vol on in 11:17 AM ume] in source Blood data Lymphocyt 0.7 - 4.5 K/mm3 Low No Mar 08 es informati 2016 [#/volume on in 11:17 AM ] in source Unspecifi data ed specimen by Automated count Lymphocyt 10 - 50.0 % Low Mar 08 es inform2016 [#/volume on in 11:17 AM ] in source Unspecifi data ed specimen by Automated count Erythrocy 27 - 31.2 pg High Mar 08 te mean inform2016 corpuscul on in 11:17 AM ar source hemoglobi data n [Entitic mass] Erythrocy 31.8 - g/dl Normal Mar 08 te mean 35.4 inform2016 corpuscul on in 11:17 AM ar source hemoglobi data n concentra tion [Mass/vol ume] by Automated count Erythrocy 82.2 - fl Normal Mar 08 te mean 97.8 inform2016 corpuscul on in 11:17 AM ar volume source [Entitic data volume] by Automated count Monocytes 0.1 - 1.0 K/mm3 Normal Mar 082016 [#/volume on in 11:17 AM ] in source Blood by data Automated count Monocytes 1.7 - 9.3 % Normal No Mar 08 /100 inform 2017 leukocyte on in 11:17 AM s in [...] 5.4 M/mm3 Low No Mar 08 bala informati 2016 [#/volume on in 11:17 AM [...] - Observa Value Referen Units Interpr Notes ti ce etation Range Eosinophi 0 - 3 % Normal No Mar 08 ls/100 2016 leukocyte on in 11:17 AM s in source Blood by data Manual count LYMPH 3 10 - 50 % Low No Mar 082016 tion in 11:17 source AM data Monocytes 2 - 9 % Normal No Mar 08 /100 2016 leukocyte on in 11:17 AM s in source Blood by data Automated count Platele NORMAL No No No No Mar 08 ts informa informa informa informa 2016 [Presen tion in tion in tion in tion in 11:17 ce] in source source source source AM Blood data data data data by Light microsc opy Neutrophi 42 - 76 % High No Mar 08 ls 2016 [#/volume on in 11:17 AM ] in source Blood by data Automated count Erythro NORMAL No No No No Mar 08 cyte informa informa informa informa 2017 morphol tion in tion in tion in tion in 11:17 ogy source source source source AM finding data data data data [Identi fier] in Blood Cells No #CELLS No No Mar 08 Counted informati informati 2016 Total [#] on in on in on in 11:17 AM in Blood source source source data data data Erythrocyte sedimentation rate by Westergren method Observa Value Referen Units Interpr Notes ce etation Range Erythrocy 0 - 30 mm/hr High No Mar 08 te 2016 sedimenta on in 11:17 AM tion rate source by data Westergre n method Lactate [Moles/volume] in Blood Observa Value Referen Units Interpr Notes ce etation Range Lactate 0.4 - 2.0 [...] High No Mar 08 in time 11.8 informati 2016 (PT) in on in 11:17 AM Platelet source poor data plasma by Coagulati on assay Activated partial thrombplastin time (aPTT) in Platelet poor plasma by Coagulation assay Observa Value Referen Units Interpr Notes Date tion ce etation Range IS PATIENT ON ANTICOAGULANTS? Y LIST ANTICOAGULANTS: COUMADIN PTT RESULTS MUST BE CALLED IF PT ON HEPARIN!!! Y Activated 23.6 - SECONDS Normal No Mar 08 partial 34.0 informati 2016 thrombpla on in 11:17 AM stin time [...] Normal No Mar 08 dioxide, 32.0 informati 2017 total on in 11:17 AM [Moles/vo source [...] 3.5 - 5.1 mmoL/L Normal No Mar 08 inform2016 [Moles/vo on in 11:17 AM lume] in [...] gm/dL Normal No Mar 08 [Mass/vol informati 2017 ume] in on in 11:17 AM Serum or source Plasma data CRP Observa Value Referen Units Interpr Notes Date tion ce etation Range CRP 0.0 - 0.9 MG/DL High No Mar 08 informati 2017 on in 11:17 AM source data INR in Blood by Coagulation assay Observa Value Referen Units Interpr Notes Date tion ce etation Range INR in 0.9 - 1.1 No High Results Mar 07 Blood by informati sent to: 2017 Coagulati on in [employer] 11:30 AM on assay source Ernesto PRICE data E. 03/07/17 [id number] chanda,Baldemar mmy Pharmacis t recommend ation for Warfarint [...] Plasma Observa Value Referen Units Interpr Notes ti ce etation Range Albumin/G 1.1 - [...] mmoL/L Normal No Feb 28 dioxide, 32.0 ati 2016 total on in 10:37 AM [Moles/vo source lume] in data Serum or Plasma Creatinin 0.55 - mg/dL High No Feb 28 e 1.02 inform2016 [Mass/vol on in 10:37 AM ume] [...] 3.5 - 5.1 mmoL/L Normal No Feb 282016 [Moles/vo on in 10:37 AM lume] in [...] gm/dL Low No Feb 28 [Mass/vol informati 2017 ume] in on in 10:37 AM Serum [...] INR in 0.9 - 1.1 No High INDICATIFeb 28 Blood by informati N 2016 Coagulati on in 10:37 AM on assay source INR data RANGETHER APY FOR DVT, PE, ATRIAL FIB; 2.0 - 3.0PROPHY LAXIS FOR VTETHERAP Y FOR MECHANICA L HEART 2.5 - 3.5VALVE; PREVENTIO N OF SYSTEMICE MBOLISM SECONDARY TO AMI Prothromb 9.4 - SECONDS High No Feb 28 in time 11.8 inform2016 (PT) in on in 10:37 AM Platelet source poor data plasma by Coagulati on assay CBC W Auto Differential panel in Blood Observa Value Referen Units Interpr Notes Date ti ce etation Range Basophils 0 - 0.2 K/MM3 Normal No Feb 282016 [#/volume on in 10:37 AM ] in source Blood by data Automated count Basophils 0.1 - 2.0 % Normal No Feb 28 /100 2016 leukocyte on in 10:37 AM s in source Blood by data Automated count Eosinophi 0.0 - 0.4 K/mm3 Normal No Feb 28 ls ati 2016 [#/volume on in 10:37 AM ] in source Blood by data Automated count Eosinophi 0.1 - % Normal No Feb 28 ls/100 12.0 2016 leukocyte on in 10:37 AM s in source Blood by data Automated count Granulocy 1.8 - 7.8 K/mm3 Normal No Feb 28 bala 2016 [#/volume on [...] mass] Erythrocy 31.8 - g/dl Normal Feb 28 te mean 35.4 2016 corpuscul on in 10:37 AM ar source hemoglobi data n concentra tion [Mass/vol ume] by Automated count Erythrocy 82.2 - fl High Feb 28 te mean 97.8 2016 corpuscul on in 10:37 AM ar volume source [Entitic data volume] by Automated count Monocytes 0.1 - 1.0 K/mm3 Normal No Feb 282016 [#/volume on in 10:37 AM ] in source Blood by data Automated count Monocytes 1.7 - 9.3 % Normal No Feb 28 /100 2016 leukocyte on in 10:37 AM s in source Blood by data Automated count Platelet 7.4 - fl Normal Feb 28 mean 10.4 2016 volume on in 10:37 AM [Entitic source volume] data in Blood by Automated count Platelets 142 - 424 K/mm3 Normal No Feb 282016 [#/volume on in 10:37 AM ] in source Blood data Erythrocy 4.2 - 5.4 M/mm3 Low No Feb 13 bala 2016 [#/volume on in 10:37 AM ] in source Amniotic data fluid Erythrocy 11.5 - % Normal No Feb 13 te 17.5 2016 distribut on in 10:37 AM ion width source [Entitic data volume] by Automated count Leukocyte 4.8 - K/MM3 No No Feb 13 s 10.8 informati 2016 [#/volume on in on in 10:37 AM ] in source source Blood data data CBC W Auto Differential panel in Blood Observa Value Referen Units Interpr Notes Date tion ce etation Range Basophils 0 - 0.2 K/MM3 Normal No Feb 10 2016 [#/volume on in 11:58 AM ] in source Blood by data Automated count Basophils 0.1 - 2.0 % Normal No Feb 25 /100 2016 leukocyte on in 11:58 AM s in source Blood by data Automated count Eosinophi 0.0 - 0.4 K/mm3 Normal No Feb 10 ls 2016 [#/volume on in 11:58 AM ] in source Blood by data Automated count Eosinophi 0.1 - % Normal No Feb 25 ls/100 12.0 2016 leukocyte on in 11:58 AM s in source Blood by data Automated count Granulocy 1.8 - 7.8 K/mm3 High No Feb 10 bala 2016 [#/volume on in 11:58 AM ] in source Blood by data Automated count Granulocy 37.0 - % High No Feb 10 bala/100 80.0 2016 leukocyte on in 11:58 AM s in source Blood by data Automated count Hematocri 37.0 - % Low No Feb 25 t [Volume 47.0 2016 on in 11:58 AM Fraction] source of Blood data Hemoglobi 12.2 - g/dL Low No Feb 10 n 16.2 2016 [Mass/vol on in 11:58 AM ume] in source Blood data Lymphocyt 0.7 - 4.5 K/mm3 Normal No Feb 10 es 2016 [#/volume on in 11:58 AM ] in source Unspecifi data ed specimen by Automated count Lymphocyt 10 - 50.0 % Low No Feb 10 es 2016 [#/volume on in 11:58 AM ] in source Unspecifi data ed specimen by Automated count Erythrocy 27 - 31.2 pg High No Nov 10 te mean 2016 corpuscul on in 11:58 AM ar source hemoglobi data n [Entitic mass] Erythrocy 31.8 - g/dl Normal Feb 25 te mean 35.4 2016 corpuscul on in 11:58 AM ar source hemoglobi data n concentra tion [Mass/vol ume] by Automated count Erythrocy 82.2 - fl High No Feb 25 te mean 97.8 2016 corpuscul on in 11:58 AM ar volume source [Entitic data volume] by Automated count Monocytes 0.1 - 1.0 K/mm3 Normal Feb 252016 [#/volume on in 11:58 AM ] in source Blood by data Automated count Monocytes 1.7 - 9.3 % Normal No Feb 252016 leukocyte on [...] Automated count Leukocyte 4.8 - K/MM3 High Feb 25 s 10.8 2016 [#/volume on in 11:58 AM ] in source Blood data Differential panel, method unspecified - Observa Value Referen Units Interpr Notes Date tion ce etation Range Neutrophi 0 - 8 % High Feb 25 ls.band 2017 form/100 on in 11:58 AM leukocyte source s in data Blood by Automated count LYMPH 4 10 - 50 % Low Feb 252016 tion in 11:58 source AM data Monocytes 2 - 9 % Normal No Feb 252016 leukocyte on in 11:58 AM s in source Blood by data Automated count Platele NORMAL No No No Feb 25 ts informa informa informa informa 2017 [Presen tion in tion in tion in [...] Interpr Notes Date ti ce etation Range Urea 7 - 18 [...] mg/dL Normal No Feb 25 e 1.02 inform2016 [Mass/vol on in 11:58 AM ume] [...] sent to: 2016 Coagulati on in [facility] 10:20 AM on assay source Ernesto PRICE data E. 02/14/17 [id number] Baldemar armas Pharmacis t recommend ation for [...] .5 MG ON TUE/TUE; 3.75 MG ON TUE/TUE/W ED/JEMAL/SA T.FOR DETAILED [...] K/mm3 Normal No Sep 18 bala informati 2017 8:50 [#/volume on in AM ] in source Blood by data Automated count Granulocy 37.0 - % High No Sep 18 bala/100 80.0 informati 2017 8:50 leukocyte on in AM s in source Blood by data Automated count Hematocri 37.0 - % Low No Sep 18 t [Volume 47.0 informati 2016 8:50 on in AM Fraction] source of Blood data Hemoglobi 12.2 - g/dL Normal No Sep 18 n 16.2 informati 2017 8:50 [Mass/vol on in AM ume] in source Blood data Lymphocyt 0.7 - 4.5 K/mm3 Normal No Sep 18 es informati 2017 8:50 [#/volume on in AM [...] M/mm3 Low No Sep 18 bala informati 2017 8:50 [#/volume on in AM ] in source Amniotic data fluid Erythrocy 11.5 - % Normal No Sep 18 te 17.5 informati 2016 8:50 distribut on in AM ion width source [Entitic data volume] by Automated count Leukocyte 4.8 - K/MM3 Normal No Sep 18 s 10.8 informati 2017 8:50 [#/volume on in AM [...] mmoL/L Normal No Sep 15 [Moles/vo informati 2016 lume] in on [...] data Plasma Estimated 59- ML/MIN Low REFERENCE Dec 31 RANGE: 2017 glomerula >60 12:04 PM r ML/MIN/1. filtratio 73 SQUARE n rate METERSIf (GF this patient is -A merican, then multiply theresult by 1.210. Glucose 74 - 106 mg/dL High No Dec 15 [Mass/vol informati 2016 ume] in on in [...] PROGRESS NOTEI N THE ASSESSMEN AND ANTICOAGU LATION [facility] IN PCI/CLINI NIKOLE REVIEWIND ICATION INR RANGETHER [...] THEN 2.5MG ON MON/FRI; 3.75 MG ON SUN/TUE/W ED/JEMAL/SA T.FOR DETAILED INFORMATI ON-PLEASE REVIEW PROGRESS NOTEI N THE ASSESSMEN AND ANTICOAGU LATION [facility] IN PCI/CLINI NIKOLE REVIEWIND ICATION INR RANGETHER [...] Performed Nov 01 in informati at: CB 2017 3:14 convertin on in - [facility] PM g enzyme source [Enzymati data [id number] c [address] activity/ Road, volume] [place], in Serum [place] or Plasma [id number] [employer] Mechanic: Chano Berrios PhD, Phone: [phone] Iron and TIBC Observa Value Referen [...] PM in Serum source or Plasma data [id number], [place], [place] [id number] [employer] Mechanic: Chano Berrios PhD, Phone: [phone] Comprehensive metabolic 2000 panel in Serum [...] mg/dL Normal No Nov 01 .total informati 2017 3:14 [Mass/vol on in PM ume] in source Serum or data Plasma Urea 7 - 18 mg/dL High No Nov 01 nitrogen informati 2017 3:14 [Mass/vol on in PM ume] in [...] - 1.0 K/mm3 Normal No Nov 01 inform2016 3:14 [#/volume on in PM ] in [...] - 424 K/mm3 Normal No Nov 01 inform2016 3:14 [#/volume on in PM ] in source Blood data Erythrocy 4.2 - 5.4 M/mm3 Low No Nov 01 bala ati 2016 3:14 [#/volume on in PM [...] Oct 11 reatinine 30.0 informati informati Result 2016 [Mass on in on in Units: 10:03 AM ratio] in source source mg/g Urine data data creatPerf ormed at: - [facility] [address] [id number] [address] [place], [place] [id number] [employer]ic: Chano Berrios PhD, Phone: [phone] Creatinin Not mg/dL No No Oct [...] mmoL/L Normal No Oct 11 dioxide, 32.0 inform2016 total on in 10:03 AM [Moles/vo source lume] in data Serum or Plasma Creatinin 0.55 - mg/dL Normal No Oct 11 e 1.02 inform2016 [Mass/vol on in 10:03 AM ume] in [...] High No Oct 11 ol in HDL informati 2016 on in 10:03 AM [Mass/vol source [...] High No Oct 11 ol in informati inform2016 VLDL on in on in 10:03 AM [...] 11 bin A1c 7.0 NON-FEDER[place] 2016 in [facility] 10:03 Blood LEVEL< AM 7% CONTROL LED [...] Sep 20 Blood by informati sent to: 2017 Coagulati on in [employer] 11:45 AM on assay source Ernesto PRICE data E. 09/20/16 [id number] Baldemar armas mmy Pharmacis t recommend ation for Warfarint herapy is: PATIENT INR 2.6 TODAY VIA [facility]INGER[facility].RECOMM ENDED PATIENT CONTINUE WITH CURRENT DOSE OF WARFARIN2 .5 MG ON MON/FRI; 3.75 MG ON SUN/TUE/W ED/JEMAL/SA T. [place] W UP IN 5 WEEKS. *FOR DETAILED INFORMATI ON-PLEASE REVIEW PROGRESS NOTEI N THE ASSESSMEN TS AND ANTICOAGU LATION CLINIC SECTIONAN TICOAGUMO TION CLINIC IN PCI/CLINI NIKOLE REVIEWIND ICATION [...] source Ernesto PRICE data E. 09/09/16 [id number] enshipBaldemar mmy Pharmacis t recommend ation for Warfarint herapy is: PATIENT INR 2.5 TODAY VIA FINGERSTI CK.RECOMM ENDED PATIENT CONTINUE WITH WARFARIN 2.5 MG MON/FRI;3 .75 MG ON SUN/TUE/W ED/JEMAL/SA T.FOR DETAILED INFORMATI ON-PLEASE REVIEW PROGRESS NOTEI N THE ASSESSMEN TS AND ANTICOAGU LATION [facility]IN[facility] PCI/CLINI NIKOLE REVIEWIND ICATION INR RANGETHER APY FOR DVT, PE, ATRIAL FIB; 2.0 - 3.0PROPHY LAXIS FOR VTETHERAP Y FOR MECHANICA L HEART 2.5 - 3.5VALVE; PREVENTIO N OF SYSTEMICE MBOLISM SECONDARY TO AMI
--- OUTSIDE RECORDS SUMMARY | 2017-03-17 08:45 | External Medical Summary Rpt ---
Author Author [employer], [employer] Organization [employer] Address Unknown Phone Unavailable [...] - 7.8 K/mm3 High No Feb 10 baal 2016 [#/volume on in 11:58 AM ] [...] NOTEI N THE ASSESSMEN AND ANTICOAGU LATION [facility] IN PCI/CLINI NIKOLE REVIEWIND ICATION INR RANGETHER [...] NOTEI N THE ASSESSMEN AND ANTICOAGU LATION [facility] IN PCI/CLINI NIKOLE REVIEWIND ICATION INR RANGETHER [...] [facility] PM g enzyme source [Enzymati data [id number] c 0 [address] activity/ Road, volume] [place], in Serum [place] or Plasma [id number] Ct Technologist: Chano Berrios PhD, Phone: [phone] Iron and TIBC Observa Value Referen [...] PM in Serum source or Plasma data [id number], [place], [place] [id number] Ct Technologist: Chano Berrios PhD, Phone: [phone] Comprehensive metabolic 2000 panel in Serum [...] data data creatPerf ormed at: - [facility] [address] [place] [id number] [address] [place], [place] [id number] Ct Technologist: Chano Berrios PhD, Phone: [phone] Creatinin Not mg/dL No No Oct [...] 11 bin A1c 7.0 NON-FEDER[place] 2016 in [facility] 10:03 Blood LEVEL< AM 7% CONTROL LED [...] ASSESSMEN TS AND ANTICOAGU LATION CLINIC [facility] IN PCI/CLINI NIKOLE REVIEWIND ICATION [...] ASSESSMEN TS AND AN[facility]ICOAGU L[facility] PCI/CLINI NIKOLE REVIEWIND ICATION INR RANGETHER APY FOR DVT, PE, ATRIAL FIB; 2.0 - 3.0PROPHY LAXIS FOR VTETHERAP Y FOR MECHANICA L HEART 2.5 - 3.5VALVE; PREVENTIO N OF SYSTEMICE MBOLISM SECONDARY TO AMI
[2017-03-17 08:55] LABS: BUN 35 mg/dL (7-18)
[2017-03-17 08:59] LABS: GFR (ESTIMATED) 31 ML/MIN (59-)
--- NOTE | 2017-03-17 09:24 | RADIOLOGY REPORT PS360 ---
CT HEAD W/O CONTRAST HISTORY: Confusion, altered level consciousness, CONFUSION, FEVER ORDERING PHYSICIAN: Dianne Melendrez MD PATIENT AGE: 76 years COMPARISON: 01/09/2016 TECHNIQUE: Axial images obtained without contrast. Brain and bone windows reviewed. FINDINGS: No midline shift, mass effect, intracranial hemorrhage, hydrocephalus, or extra-axial fluid collection is evident. There is mild degree of motion artifact somewhat obscuring fine detail. There is generalized atrophy with periventricular and subcortical hypodensity consistent with ischemic gliotic change from microvascular disease. The calvarium has an unremarkable appearance. No mastoid effusion. There is moderate opacification of the right maxillary sinus with some minimal calcification within the area of mucosal thickening consistent with chronic sinusitis. There is mild mucosal thickening of the left aspect of the sphenoid sinus.. IMPRESSION: 1. No acute intracranial findings. 2. Chronic sinusitis.
--- NOTE | 2017-03-17 09:27 | RADIOLOGY REPORT PS360 ---
LOWER LEG-RT HISTORY: Pain and swelling of the right leg cellulitis ORDERING PHYSICIAN: Dianne Melendrez MD PATIENT AGE: 76 years COMPARISON: None FINDINGS: There is diffuse vascular calcification as well as a phlebolith along the pretibial region proximally. No soft tissue gas, radiopaque foreign body, or bony abnormality evident. IMPRESSION: Vascular calcification otherwise negative
--- NOTE | 2017-03-17 09:28 | RADIOLOGY REPORT PS360 ---
LOWER LEG-LT HISTORY: Left lower extremity pain cellulitis ORDERING PHYSICIAN: Dianne Melendrez MD PATIENT AGE: 76 years COMPARISON: None FINDINGS: No fracture or dislocation. No lytic or blastic change. There is normal mineralization. Total left knee prosthesis is present. There is mild vascular calcification. No radio opaque foreign body. No fracture or dislocation.. IMPRESSION: No acute finding
--- NOTE | 2017-03-17 09:31 | RADIOLOGY REPORT PS360 ---
CHEST-PORTABLE HISTORY: fever ORDERING PHYSICIAN: Dianne Melendrez MD PATIENT AGE: 76 years COMPARISON: 03/14/2017 FINDINGS: There is mild cardiomegaly without failure. Left lower lobe consolidation has improved. Patchy density is now noted in the right upper lobe suspicious for pneumonia in the right upper lobe. PICC line remains in place from left upper extremity approach. IMPRESSION: Right upper lobe infiltrate.
[2017-03-17 09:41] LABS: URINE BILIRUBIN - DIPSTICK NEGATIVE (NEG); URINE BLOOD NEGATIVE (NEG)
[2017-03-17 11:23] VITALS: BP 103/52
== END 2017-03-17 11:31 | disposition short-term general hospital (02) ==
LOC: ER 08:14
PROVIDERS: Emergency Medicine
DX: J18.1 Lobar pneumonia, unspecified organism (principal); L97.929 Non-pressure chronic ulcer of unspecified part of left lower leg with unspecified severity; Z79.01 Long term (current) use of anticoagulants; I10 Essential (primary) hypertension; R41.0 Disorientation, unspecified